=== PATIENT | female | born 1970 | race American Indian/Alaskan Native ===

== ENCOUNTER 2017-02-20 08:26 | Emergency (ER) | payer BC ==
[2017-02-20 09:57] LABS: Basophils % (Auto) 0.8 % (0.0-1.8); Eosinophils % (Auto) 2.2 % (0.0-4.3); Mean Corpuscular HGB Conc 29 % (30-34); Mean Corpuscular Volume 71 fl (79-97); Platelet Count 302 K/mm3 (140-440); Red Cell Distribution Width 18.5 % (13.2-15.2); White Blood Count 6.1 K/mm3 (4.5-11.0)
[2017-02-20 10:01] LABS: Alanine Aminotransferase 19 units/L (7-56); Albumin 2.8 g/dL (3.9-5); Albumin/Globulin Ratio 0.8 %; Alkaline Phosphatase 97 units/L (35-129); Anion Gap 17 mmol/L; BUN/Creatinine Ratio 10.71; Bilirubin,Total < 0.2 mg/dL (0.1-1.2); Blood Urea Nitrogen 15 mg/dL (7-17); Calcium 8.5 mg/dL (8.4-10.2); Carbon Dioxide 21 mmol/L (22-30); Chloride 104.1 mmol/L (98-107); Glucose 277 mg/dL (65-100); Lipase 34 units/L (13-60); Potassium 4.5 mmol/L (3.6-5.0); Sodium 138 mmol/L (137-145); Total Protein 6.3 g/dL (6.3-8.2)
[2017-02-20 10:04] LABS: Hematocrit 28.9 % (30.3-42.9); Hemoglobin 8.5 gm/dl (10.1-14.3); Mean Corpuscular Hemoglobin 21 pg (28-32)
[2017-02-20 12:02] LABS: Bacteria,Urine 1+ /HPF (Negative); Bilirubin,Urine NEG (Negative); Blood,Urine NEG (Negative); Ketones,Urine NEG (Negative); Leukocyte Esterase,Urine NEG (Negative); Mucus,Urine FEW /HPF; Nitrite,Urine NEG (Negative); Urobilinogen,Urine < 2.0 mg/dL (<2.0); WBC,Urine < 1.0 /HPF (0.0-6.0)
[2017-02-20 12:05] LABS: Protein,Urine >500 mg/dL (Negative)
[2017-02-20] MEDS ORDERED: DILAUDID IV ONE ×2 (14:06→17:35)
[2017-02-20] MEDS ORDERED: ZOFRAN IV ONE (14:06)
[2017-02-20] MEDS ORDERED: PROTONIX IV ONE (14:06)
[2017-02-20] MEDS ORDERED: TORADOL IV ONE (14:06)
[2017-02-20] MEDS ORDERED: NACL 0.9% 1000 ML 1,000 ML IV ONE (14:06)
--- NOTE | 2017-02-20 14:10 | Emergency Department Report ---
ED Abdominal Pain HPI - General Chief Complaint: Abdominal Pain Stated Complaint: ABD PAIN/NAUSEA/DIARRHEA Time Seen by Provider: 02/20/17 14:02 Source: patient Mode of arrival: Ambulatory Limitations: No Limitations - History of Present Illness MD Complaint: abdominal pain Onset/Timin -: Gradual, days(s) Location: diffuse Radiation: none Severity: moderate Severity scale (0 -10): 6 Quality: cramping, aching, fullness Consistency: constant Improves With: nothing Worsens With: nothing Associated Symptoms: nausea, vomiting, diarrhea. denies: fever, chills, constipation, dysuria, hematemesis, hematochezia, melena, hematuria, anorexia - Related Data Home Medications Medication Instructions Recorded Confirmed Last Taken Gabapentin [Neurontin] 600 mg PO TID 07/07/13 10/25/16 10/16/16 20:00 Lisinopril [Zestril TAB] 40 mg PO DAILY 08/14/15 10/25/16 10/16/16 20:00 Insulin Aspart [NovoLOG 100 15 unit SQ AC 11/29/15 10/25/16 10/16/16 19:00 UNITS/ML VIAL] amLODIPine [Norvasc] 10 mg PO DAILY 11/29/15 10/25/16 10/16/16 20:00 Sitagliptin Phos/Metformin HCl 1 each PO BID 09/13/16 10/25/16 09/21/16 [Janumet 50-500 mg Tablet] Previous Rx's Medication Instructions Recorded Last Taken Type Insulin Glargine,Hum.rec.anlog 45 unit SQ QHS 30 Days 09/15/16 10/16/16 20:00 Rx [Lantus Solostar] Ondansetron [Zofran ODT TAB] 4 mg PO Q8HR #20 tab.rapdis 09/22/16 Unknown Rx HYDROcodone/APAP 5-325 [[place] 1 - 2 each PO Q6HR PRN #20 tablet 10/17/16 Unknown Rx 5-325 mg TAB] HYDROcodone/APAP 5-325 [[place] 1 each PO Q6HR PRN #16 tablet 10/17/16 Unknown Rx 5-325 mg TAB] Promethazine HCl [Phenergan SUPPOS] 25 mg RC Q6H #10 supp.rect 10/17/16 Unknown Rx Sulfamethoxazole/Trimethoprim 1 each PO BID #6 tablet 10/17/16 Unknown Rx [Bactrim DS TAB] HYDROcodone/APAP 10-325 [[place] 1 each PO TID #15 tablet 02/20/17 Unknown Rx 10-325 mg TAB] Ondansetron [Zofran TAB] 8 mg PO Q8HR PRN #15 tablet 02/20/17 Unknown Rx Promethazine [Phenergan TAB] 25 mg PO Q6HR PRN #20 tab 02/20/17 Unknown Rx Allergies Allergy/AdvReac Type Severity Reaction Status Date / Time metoclopramide HCl Allergy Swelling Verified 02/20/17 09:06 [From Reglan] morphine Allergy Itching Verified 02/20/17 09:06 oxycodone HCl [From Percocet] Allergy Swelling Verified 02/20/17 09:06 shellfish derived Allergy Swelling Verified 02/20/17 09:06 ED Review of Systems ROS: Stated complaint: ABD PAIN/NAUSEA/DIARRHEA Other details as noted in HPI Comment: All other systems reviewed and negative Gastrointestinal: as per HPI ED Past Medical Hx - Past Medical History Hx Hypertension: Yes Hx CVA: Yes (x2) Hx Congestive Heart Failure: Yes Hx Diabetes: Yes Hx Asthma: No Hx COPD: No Hx HIV: No Additional medical history: gastroparesis. neuropathy - Surgical History Hx Cholecystectomy: Yes Hx Breast Surgery: Yes Additional Surgical History: breast reduction. Right great toe amputation. Right chest wall PICC LINE. Ectopic - Social History Smoking Status: Never Smoker Substance Use Type: Alcohol, Prescribed - Medications Home Medications: Home Medications Medication Instructions Recorded Confirmed Last Taken Type Gabapentin [Neurontin] 600 mg PO TID 07/07/13 10/25/16 10/16/16 20:00 History Lisinopril [Zestril TAB] 40 mg PO DAILY 08/14/15 10/25/16 10/16/16 20:00 History Insulin Aspart [NovoLOG 100 15 unit SQ AC 11/29/15 10/25/16 10/16/16 19:00 History UNITS/ML VIAL] amLODIPine [Norvasc] 10 mg PO DAILY 11/29/15 10/25/16 10/16/16 20:00 History Sitagliptin Phos/Metformin HCl 1 each PO BID 09/13/16 10/25/16 09/21/16 History [Janumet 50-500 mg Tablet] Insulin Glargine,Hum.rec.anlog 45 unit SQ QHS 30 Days 09/15/16 10/25/16 20:00 Rx [Lantus Solostar] Ondansetron [Zofran ODT TAB] 4 mg PO Q8HR #20 tab.rapdis 09/22/16 10/25/16 Unknown Rx HYDROcodone/APAP 5-325 [[place] 1 - 2 each PO Q6HR PRN #20 tablet 10/17/16 Unknown Rx 5-325 mg TAB] HYDROcodone/APAP 5-325 [[place] 1 each PO Q6HR PRN #16 tablet 10/17/16 10/25/16 Unknown Rx 5-325 mg TAB] Promethazine HCl [Phenergan SUPPOS] 25 mg RC Q6H #10 supp.rect 10/17/16 Unknown Rx Sulfamethoxazole/Trimethoprim 1 each PO BID #6 tablet 10/17/16 10/25/16 Unknown Rx [Bactrim DS TAB] HYDROcodone/APAP 10-325 [[place] 1 each PO TID #15 tablet 02/20/17 Unknown Rx 10-325 mg TAB] Ondansetron [Zofran TAB] 8 mg PO Q8HR PRN #15 tablet 02/20/17 Unknown Rx Promethazine [Phenergan TAB] 25 mg PO Q6HR PRN #20 tab 02/20/17 Unknown Rx ED Physical Exam - General Limitations: No Limitations General appearance: alert, in no apparent distress - Head Head exam: Present: atraumatic, normocephalic - Eye Eye exam: Present: normal appearance - ENT ENT exam: Present: mucous membranes moist - Neck Neck exam: Present: normal inspection - Respiratory Respiratory exam: Present: normal lung sounds bilaterally. Absent: respiratory distress - Cardiovascular Cardiovascular Exam: Present: regular rate, normal rhythm. Absent: systolic murmur, diastolic murmur, rubs, gallop - GI/Abdominal GI/Abdominal exam: Present: soft, tenderness, normal bowel sounds. Absent: distended, guarding, rebound, rigid - Extremities Exam Extremities exam: Present: normal inspection - Back Exam Back exam: Present: normal inspection - Neurological Exam Neurological exam: Present: alert, oriented X3 - Psychiatric Psychiatric exam: Present: normal affect, normal mood - Skin Skin exam: Present: warm, dry, intact, normal color. Absent: rash ED Course Vital Signs 02/20/17 02/20/17 02/20/17 09:01 16:35 16:38 Temperature 98.7 F Pulse Rate 75 71 Respiratory 16 20 18 Rate Blood Pressure 173/101 Blood Pressure 205/105 [Left] O2 Sat by Pulse 100 97 97 Oximetry 02/20/17 17:34 Temperature Pulse Rate 78 Respiratory 18 Rate Blood Pressure Blood Pressure 181/92 [Left] O2 Sat by Pulse 98 Oximetry ED Medical Decision Making - Lab Data Result diagrams: 02/20/17 09:27 02/20/17 09:27 Critical care attestation.: If time is entered above; I have spent that time in minutes in the direct care of this critically ill patient, excluding procedure time. ED Disposition Clinical Impression: Gastroparesis, Diabetic gastroparesis, Abdominal pain Disposition: DISCHARGED TO HOME OR SELFCARE Is pt being admited?: No Does the pt Need Aspirin: No Condition: Good Instructions: Diabetes Mellitus Type 2 in Adults (ED) Prescriptions: HYDROcodone/APAP 10-325 [[place] 10-325 mg TAB] 1 each PO TID #15 tablet Ondansetron [Zofran TAB] 8 mg PO Q8HR PRN #15 tablet PRN Reason: Muscle Spasm Promethazine [Phenergan TAB] 25 mg PO Q6HR PRN #20 tab PRN Reason: Nausea Referrals: PRIMARY CARE, [Primary Care Provider] - 3-5 Days Time of Disposition: 18:11
--- NOTE | 2017-02-20 16:03 | Admit Criteria Form ---
Admission Criteria Documentation: ABDOMINAL PAIN Clinical Indications for Admission to Inpatient Care (Place 'X' for any and all applicable criteria): Admission is indicated for ANY ONE of the following(1)(2)(3)(4)(5): [ ]I. Inpatient admission required rather than observation care (Also use Abdominal Pain: Observation Care, as appropriate) because of ANY ONE of the following: [ ]a) Severe pain requiring acute inpatient management [ ]b) Identification of etiology/finding that requires inpatient care (eg, aortic dissection, free air) [ ]c) Absent bowel sounds with complete ileus(6) [ ]d) Suspected toxic megacolon [ ]e) Severe electrolyte abnormalities requiring inpatient care [ ]f) High fever or infection requiring inpatient admission as indicated by ANY ONE of following(7)(8): [ ] i) Appropriate outpatient or observational care antimicrobial treatment unavailable, not effective, or not feasible [ ] ii) Documented bacteremia [ ] iii) Temperature > 104.9 degrees F (oral) [ ] iv) T >103.1 F (oral) or < 96.8 F(rectal) that does not respond to all emergency treatment measures [ ]g) Signs of intestinal obstruction [B] [ ]h) Hemodynamic instability [ ]i) IV fluid to replace significant ongoing losses (greater than 3 L/m2 per day) (12)(13) [ ]j) Percutaneous or open drainage (eg, abscess, biliary tract ) procedures [ ]k) Parenteral nutrition regimen that must be implemented on inpatient basis [ ]l) Other condition,treatment or monitoring requiring inpatient admission. [ ]II. Peritoneal signs present [ ]III. Surgery needed that cannot be performed on an ambulatory basis. [ ]IV. Evaluation requires patient to not eat or drink for extended period ( eg, more than 24 hours). [ ]V. Contraindications and/or Inappropriate clinical situations for Observational Care in patients with abdominal pain, when ANY ONE of the following is required: [ ]a) Thorough evaluation is required to prevent catastrophic events due to delays in diagnosing (e.g.Mesenteric ischemia) 1,3 [ ]b) Patient with severe pathology or with chronic symptoms unlikely to improve in the ED stay (3) [ ]. General contraindications and/or Inappropriate clinical situations for Observational Care in patients with abdominal pain, when ANY ONE of the following is required: [ ]a) Prediction of prolongation of LOS based on ANY ONE of the following may be considered as a contraindication for observational care 2, 3, 4, 5, 6, 7, 8, 9, 10, 11 [ ]i) Age > 65 yrs. [ ]ii) Patient arriving by ambulance [ ]iii) Patient with high acuity [ ]iv) Patient requiring vital sign monitoring [ ]v) Patient on IV medication [ ]b) Systolic blood pressures 180mmHg 3,12 [ ]c) Patient with altered mental status including delirium and other alteration of consciousness, (3) [ ]d) Patient whose discharge disposition will be to a shelter home or rehabilitation home should not be managed in Emergency Department Observation Unit. CMS rule requires 3 days hospital stay before such placement.3,13 [ ]e) Patient with failure to thrive due to broad array of etiologies 3,16,17 [ ]f) Inability to ambulate 3,14 Extended stay beyond goal length of stay may be needed for(2)(3): [ ]a) Persistent abdominal pain with suspected intra-abdominal process [ ]b) Diagnosed condition requiring continued stay (e.g., pancreatitis, complicated diverticulitis) [ ]c) Surgery (e.g., colectomy) The original [employer] content created by [employer] has been revised. The portions of the content which have been revised are identified through the use of italic text or in bold, and [facility] has neither reviewed nor approved the modified material.All other unmodified content is copyright [employer]. Please see references footnoted in the original [employer] edition 2016
[2017-02-20 17:35] VITALS: BP 181/92
== END 2017-02-20 18:26 | disposition home or self-care (01) ==
LOC: ED 08:26
DX: E11.43 Type 2 diabetes mellitus with diabetic autonomic (poly)neuropathy (principal); K31.84 Gastroparesis; R10.9 Unspecified abdominal pain; E11.9 Type 2 diabetes mellitus without complications; I10 Essential (primary) hypertension; I63.9 Cerebral infarction, unspecified; Z79.4 Long term (current) use of insulin; Z88.5 Allergy status to narcotic agent; Z91.013 Allergy to seafood; Z88.8 Allergy status to other drugs, medicaments and biological substances
CPT/HCPCS: 36415; 80053; 81001; 81025; 83690; 85025; 96361; 96374; 96375; 96376; 99283; C9113; J1170; J1885; J2405; J7030

== ENCOUNTER 2017-03-16 08:44 | Inpatient (IN) | payer BC ==
[2017-03-16 11:03] LABS: Basophils % (Auto) 0.8 % (0.0-1.8); Eosinophils % (Auto) 2.6 % (0.0-4.3); Mean Corpuscular HGB Conc 29 % (30-34); Mean Corpuscular Volume 71 fl (79-97); Platelet Count 263 K/mm3 (140-440); Red Blood Count 3.87 M/mm3 (3.65-5.03); Red Cell Distribution Width 18.3 % (13.2-15.2); White Blood Count 6.4 K/mm3 (4.5-11.0)
[2017-03-16 11:12] LABS: BUN/Creatinine Ratio 14.44; Calcium 8.2 mg/dL (8.4-10.2); Chloride 99.9 mmol/L (98-107); Potassium 5.9 mmol/L (3.6-5.0)
[2017-03-16 11:19] LABS: Hematocrit 27.4 % (30.3-42.9); Mean Corpuscular Hemoglobin 21 pg (28-32)
[2017-03-16] MEDS ORDERED: NACL 0.9% 1000 ML 1,000 ML IV ONE (12:23)
[2017-03-16] MEDS ORDERED: KIONEX PO ONE (12:23)
[2017-03-16] MEDS ORDERED: ZOFRAN IV ONE (12:37)
[2017-03-16] MEDS ORDERED: PROTONIX IV ONE (12:37)
--- NOTE | 2017-03-16 12:52 | Emergency Department Report ---
ED General Adult HPI - General Chief complaint: Hyperglycemia Stated complaint: N/V/D Time Seen by Provider: 03/16/17 12:19 Source: patient Mode of arrival: Ambulatory Limitations: No Limitations - History of Present Illness Initial comments: This is a in insulin-dependent diabetic who requires frequent admission to [facility] for a variety of issues to include DKA and previous bouts of acute renal failure. Her compliance has been questioned. She has a history of gastroparesis. She does not have her PICC line at this point. She states yesterday she was nauseated and could not take her oral medication. She does claim a primary care doctor but I seriously doubt if she Follows up closely. She tells me that at 2:30 in the morning she felt as if she was "floating". She states that she was dizzy. She checked her blood sugar and found it to be elevated in the 400s. She took 15 units she states of NovoLog at that time. However, the blood glucose we obtained here at approximately 10 AM was 521. At this time she does complain of some nausea but she is not complaining of any acute pain. She states she has been urinating less than usual. -: hour(s) Location: abdomen (chronic gastroparesis pain ) Radiation: non-radiation Quality: other (cramping) Consistency: intermittent, now resolved Improves with: none Worsens with: none Associated Symptoms: denies other symptoms Treatments Prior to Arrival: none - Related Data Home Medications Medication Instructions Recorded Confirmed Last Taken Gabapentin [Neurontin] 600 mg PO TID 07/07/13 10/25/16 10/16/16 20:00 Lisinopril [Zestril TAB] 40 mg PO DAILY 08/14/15 10/25/16 10/16/16 20:00 Insulin Aspart [NovoLOG 100 15 unit SQ AC 11/29/15 10/25/16 10/16/16 19:00 UNITS/ML VIAL] Sitagliptin Phos/Metformin HCl 1 each PO BID 09/13/16 10/25/16 09/21/16 [Janumet 50-500 mg Tablet] Insulin Glargine,Hum.rec.anlog 40 unit SQ QHS 03/16/17 03/16/17 03/15/17 [Lantus Solostar] Simvastatin [Zocor TAB] 40 mg PO DAILY 03/16/17 03/16/17 03/15/17 Allergies Allergy/AdvReac Type Severity Reaction Status Date / Time metoclopramide HCl Allergy Swelling Verified 02/20/17 09:06 [From Reglan] morphine Allergy Itching Verified 02/20/17 09:06 oxycodone HCl [From Percocet] Allergy Swelling Verified 02/20/17 09:06 shellfish derived Allergy Swelling Verified 02/20/17 09:06 ED Review of Systems ROS: Stated complaint: N/V/D Other details as noted in HPI Constitutional: denies: chills, fever Eyes: denies: eye pain, eye discharge, vision change ENT: denies: ear pain, throat pain Respiratory: denies: cough, shortness of breath, wheezing Cardiovascular: denies: chest pain, palpitations Endocrine: no symptoms reported Gastrointestinal: abdominal pain, nausea, vomiting. denies: diarrhea, hematemesis, melena, hematochezia Genitourinary: denies: urgency, dysuria, discharge Musculoskeletal: denies: back pain, joint swelling, arthralgia Skin: denies: rash, lesions Neurological: denies: headache, weakness, paresthesias Psychiatric: denies: anxiety, depression Hematological/Lymphatic: denies: easy bleeding, easy bruising ED Past Medical Hx - Past Medical History Hx Hypertension: Yes Hx CVA: Yes (x2) Hx Congestive Heart Failure: Yes Hx Diabetes: Yes Hx Asthma: No Hx COPD: No Hx HIV: No Additional medical history: gastroparesis. neuropathy - Surgical History Hx Cholecystectomy: Yes Hx Breast Surgery: Yes Additional Surgical History: breast reduction. Right great toe amputation. Right chest wall PICC LINE. Ectopic - Social History Smoking Status: Never Smoker Substance Use Type: Alcohol, Prescribed - Medications Home Medications: Home Medications Medication Instructions Recorded Confirmed Last Taken Type Gabapentin [Neurontin] 600 mg PO TID 07/07/13 10/25/16 10/16/16 20:00 History Lisinopril [Zestril TAB] 40 mg PO DAILY 08/14/15 10/25/16 10/16/16 20:00 History Insulin Aspart [NovoLOG 100 15 unit SQ AC 11/29/15 10/25/16 10/16/16 19:00 History UNITS/ML VIAL] Sitagliptin Phos/Metformin HCl 1 each PO BID 09/13/16 10/25/1609/21/16 History [Janumet 50-500 mg Tablet] Insulin Glargine,Hum.rec.anlog 40 unit SQ QHS 03/16/17 03/16/17 03/15/17 History [Lantus Solostar] Simvastatin [Zocor TAB] 40 mg PO DAILY 03/16/17 03/16/17 03/15/17 History ED Physical Exam - General Limitations: No Limitations General appearance: alert, in no apparent distress - Head Head exam: Present: atraumatic, normocephalic - Eye Eye exam: Present: normal appearance. Absent: scleral icterus - ENT ENT exam: Present: mucous membranes dry - Neck Neck exam: Present: normal inspection. Absent: tenderness, meningismus - Respiratory Respiratory exam: Present: normal lung sounds bilaterally. Absent: respiratory distress - Cardiovascular Cardiovascular Exam: Present: regular rate, normal rhythm. Absent: systolic murmur, diastolic murmur, rubs, gallop - GI/Abdominal GI/Abdominal exam: Present: soft, normal bowel sounds. Absent: distended, tenderness, guarding, rebound, rigid - Extremities Exam Extremities exam: Present: normal inspection - Back Exam Back exam: Present: normal inspection - Neurological Exam Neurological exam: Present: alert, oriented X3, CN II-XII intact. Absent: motor sensory deficit - Psychiatric Psychiatric exam: Present: normal affect, normal mood - Skin Skin exam: Present: warm, dry, intact, normal color. Absent: rash ED Course Vital Signs 03/16/17 03/16/17 03/16/17 10:00 12:25 12:30 Temperature 98.4 F 97.9 F Pulse Rate 88 79 Respiratory 18 14 14 Rate Blood Pressure 173/96 Blood Pressure 157/102 [Right] O2 Sat by Pulse 98 100 100 Oximetry 03/16/17 13:13 Temperature Pulse Rate 82 Respiratory Rate Blood Pressure Blood Pressure [Right] O2 Sat by Pulse Oximetry - Reevaluation(s) Reevaluation #1: The patient was given IV insulin and by mouth Kayexalate to reduce her potassium. Intravenous fluids were begun. I spoke to Dr. Rodriguez who requested I bridge her to telemetry where he will admit her. 03/16/17 12:54 ED Medical Decision Making - Lab Data Result diagrams: 03/16/17 10:17 03/16/17 10:17 Laboratory Results - last 24 hr 03/16/17 03/16/17 03/16/17 10:17 10:17 10:17 WBC 6.4 RBC 3.87 Hgb 8.0 L Hct 27.4 L MCV 71 L MCH 21 L MCHC 29 L RDW 18.3 H Plt Count 263 Lymph % (Auto) 24.1 Oliver % (Auto) 6.0 Eos % (Auto) 2.6 Baso % (Auto) 0.8 Lymph # 1.5 Oliver # 0.4 Eos # 0.2 Baso # 0.1 Seg Neutrophils % 66.5 Seg Neutrophils # 4.3 VBG pH 7.348 Sodium 132 L Potassium 5.9 H Chloride 99.9 Carbon Dioxide 20 L Anion Gap 18 BUN 26 H Creatinine 1.8 H Estimated GFR 36 BUN/Creatinine Ratio 14.44 Glucose 521 H* Calcium 8.2 L - EKG Data -: EKG Interpreted by Me EKG shows normal: sinus rhythm, axis, intervals, QRS complexes, ST-T waves Rate: normal - EKG Data Interpretation: no acute changes - Radiology Data interpreted by me: Chest x-ray no acute process Critical care attestation.: If time is entered above; I have spent that time in minutes in the direct care of this critically ill patient, excluding procedure time. ED Disposition Clinical Impression: Gastroparesis, Hyperglycemia due to type 1 diabetes mellitus, Hyperkalemia, Uncontrolled hypertension Anemia Qualifiers: Anemia type: unspecified type Qualified Code(s): D64.9 - Anemia, unspecified ARF (acute renal failure) Qualifiers: Acute renal failure type: unspecified Qualified Code(s): N17.9 - Acute kidney failure, unspecified Disposition: OP ADMITTED IP TO THIS HOSP Is pt being admited?: Yes Does the pt Need Aspirin: Yes Condition: Stable Instructions: Diabetes Mellitus Type 2 in Adults (ED), Hypertension (ED) Referrals: PRIMARY CARE, [Primary Care Provider] - 3-5 Days Time of Disposition: 12:58
[2017-03-16] MEDS ORDERED: NITRO-BID 2% TP ONE (12:56)
[2017-03-16] MEDS ORDERED: BABY ASPIRIN PO ONE (12:59)
--- NOTE | 2017-03-16 12:59 | XRay Report ---
AP CHEST: HISTORY: Hypertension AP view of the chest demonstrates a normal mediastinal and cardiac contour with clear lungs and normal bony and soft tissue structures. IMPRESSION: Unremarkable AP chest.
[2017-03-16 13:00] LABS: Bilirubin,Urine NEG (Negative); Blood,Urine NEG (Negative); Ketones,Urine NEG (Negative); Leukocyte Esterase,Urine NEG (Negative); Mucus,Urine FEW /HPF; Nitrite,Urine NEG (Negative); Urobilinogen,Urine < 2.0 mg/dL (<2.0)
[2017-03-16] MEDS ORDERED: DILAUDID IV ONE (13:31)
[2017-03-16] MEDS ORDERED: ZOFRAN IV PRN (14:00)
[2017-03-16] MEDS ORDERED: MILK OF MAGNESIA PO PRN (14:00)
[2017-03-16] MEDS ORDERED: DULCOLAX PR PRN (14:00)
[2017-03-16] MEDS ORDERED: REGLAN IV PRN (14:00)
[2017-03-16] MEDS ORDERED: TYLENOL PO PRN (14:00)
--- NOTE | 2017-03-16 14:25 | Admit Criteria Form ---
Admission Criteria Documentation: ANEMIA, IRON DEFICIENCY OR UNSPECIFIED Clinical Indications for Inpatient Care (Place 'X' for any and all applicable criteria): Admission is indicated for ANY ONE of the following(1)(2)(3)(4)(5)(6)(7): [X] I. Inpatient admission required rather than observation care (Also use Anemia, Iron Deficiency or Unspecified: Observation Care guideline as appropriate) because of ANY ONE of the following: [] a) Hemodynamic instability that is severe or persistent [] b) Active bleeding that cannot be rapidly controlled [] c) CVS symptoms (i.e., dyspnea, chest pain, heart failure) that are severe or persistent [] d) Neurologic symptoms (i.e., cognitive impairment, recurrent syncope or near syncope) that are severe or persistent [] e) Cardiac arrhythmias of immediate concern [] f) Acute peripheral ischemia (e.g., pulseless, cool, mottled, or cyanotic extremity) [] g) High-risk low platelet count [X] h) Acute renal failure [] i) Ongoing transfusion for blood loss (greater than 2 units) [] j) IV fluid to replace significant ongoing (eg, >24 hours) losses (> 3 L/m2 per day) [] k) Pulmonary artery catheter monitoring [] l) Supplemental oxygen or respiratory treatments for over 24 hours that are performable only in acute inpatient setting [] m) Immediate inpatient surgery [] n) Other condition, treatment or monitoring requiring inpatient admission [] II Active massive hemorrhage [] III. Active hemolysis with rapidly progressive anemia [A](6) Extended stay beyond goal length of stay may be needed for (17)(18) []a) Diagnosed cause of anemia requiring longer hospitalization (eg, active GI bleeding, immune hemolysis requiring electrophoresis, complications of malignancy requiring acute care []b) Continued emergent anemia indicators (23) []c) Transfusion reactions []d) Associated leukopenia or thrombocytopenia needing inpatient care []e) Active comorbidities (eg, renal failure, heart failure) The original [facility] Care Guidelines content created by [facility] Care Guidelines has been revised. The portions of the content which have been revised are identified through the use of italic text or in bold. [facility] has neither reviewed nor approved the modified material. All other unmodified content is copyright [facility] Care Guidelines. Please see references footnoted in the original [facility] edition 2016 Admission Criteria Met: Yes
--- NOTE | 2017-03-16 14:50 | History and Physical Report ---
History of Present Illness Date of examination: 03/16/17 Date of admission: 03/16/17 12:45 Chief complaint: Abdominal pain History of present illness: Patient is 47 years-old with the Hx of uncontrolled HTN, uncontrolled DM, CHF, gastroparesis came in today to ED with epigastric pain she complain she had severe nausea and has had 6 episodes of bilious vomiting despite not having taken anything by mouth since yesterday. Vomiting is the only thing that seems to provide some minimal relief. Currently,the pain is described as a constant dull, diffuse pain that intermittently becomes sharp and well localized. The intensity of the pain has been increasing since yesterday and on pain scale she now rates the pain at 9/10.She denies fever, malaise or chills. Surg Hx:Right great toe amputation Ectopic Breast Reduction Past History Past Medical History: CAD, diabetes, heart failure, hypertension, hyperlipidemia Past Surgical History: Other (Right great toe amputation, breast reduction, Ectopic ) Social history: , lives with family. denies: smoking, alcohol abuse, prescription drug abuse Family history: diabetes, hypertension Medications and Allergies Allergies Allergy/AdvReac Type Severity Reaction Status Date / Time metoclopramide HCl Allergy Swelling Verified 02/20/17 09:06 [From Reglan] morphine Allergy Itching Verified 02/20/17 09:06 oxycodone HCl [From Percocet] Allergy Swelling Verified 02/20/17 09:06 shellfish derived Allergy Swelling Verified 02/20/17 09:06 Home Medications Medication Instructions Recorded Confirmed Last Taken Type Gabapentin [Neurontin] 800 mg PO TID 07/07/13 03/16/17 03/15/17 History Lisinopril [Zestril TAB] 40 mg PO DAILY 08/14/15 03/16/17 03/15/17 History Insulin Aspart [NovoLOG 100 15 unit SQ TID 11/29/15 03/16/17 03/16/17 History UNITS/ML VIAL] Sitagliptin Phos/Metformin HCl 1 each PO BID 09/13/16 03/16/17 03/16/17 History [Janumet 50-500 mg Tablet] Insulin Glargine,Hum.rec.anlog 40 unit SQ QHS 03/16/17 03/16/17 03/15/17 History [Lantus Solostar] Simvastatin [Zocor TAB] 40 mg PO DAILY 03/16/17 03/16/17 03/15/17 History Active Meds: Active Medications Acetaminophen (Tylenol) 650 mg PO Q4H PRN PRN Reason: Pain MILD(1-3)/Fever >100.5/[place] Bisacodyl (Dulcolax) 10 mg SC QDAY PRN PRN Reason: Constipation unrelieved by [facility] [place] Heparin Sodium (Porcine) (Heparin) 5,000 unit SUB-Q Q8HR [facility] Hydromorphone HCl (Dilaudid) 1 mg IV Q4H PRN PRN Reason: Pain , Severe (7-10) Sodium Chloride (Nacl 0.9% 1000 Ml) 1,000 mls @ 125 mls/hr IV ONCE ONE Stop: 03/16/17 20:22 Last Admin: 03/16/17 13:50 Dose: 125 mls/hr Pantoprazole Sodium 80 mg/ (Sodium Chloride) 100 mls @ 10 mls/hr IV Q10H KE PRN Reason: 8 MG/HR Sodium Chloride (Nacl 0.9% 1000 Ml) 1,000 mls @ 75 mls/hr IV DIRECT [facility] Insulin Aspart (Novolog) 15 units SUB-Q TID [facility] Insulin Aspart (Novolog) 0 units SUB-Q ACHS KE PRN Reason: Protocol Lisinopril (Zestril) 40 mg PO DAILY [facility] Magnesium Hydroxide (Milk Of Magnesia) 30 ml PO Q4H PRN PRN Reason: Constipation Metoclopramide HCl (Reglan) 10 mg IV Q6H PRN PRN Reason: Nausea And Vomiting Miscellaneous Medication (Gabapentin [Neurontin]) 800 mg PO TID [facility] Miscellaneous Medication (Insulin Glargine,Hum.Rec.Anlog [Lantus Solostar]) 40 unit SQ QHS KE Ondansetron HCl (Zofran) 4 mg IV Q4H PRN PRN Reason: N/V unrelieved by Reglan Simvastatin (Zocor) 40 mg PO DAILY [facility] Review of Systems Constitutional: no weight loss, no weight gain, no fever, no chills, no sweats, no night sweats, no anorexia, no fatigue, no weakness, no malaise, no poor appetite Ears, nose, mouth and throat: deferred Breasts: deferred Cardiovascular: high blood pressure, no chest pain, no orthopnea, no edema, no syncope, no lightheadedness, no shortness of breath Respiratory: no cough, no shortness of breath, no dyspnea on exertion Gastrointestinal: nausea, vomiting, loss of appetite, heartburn, belching, no diarrhea, no constipation, no change in bowel habits, no hematemesis, no excessive gas, no jaundice, no dyspepsia/bloating, no early satiety Genitourinary Female: no pelvic pain, no flank pain, no urinary frequency Musculoskeletal: no neck stiffness, no neck pain, no shooting arm pain Integumentary: no rash, no pruritis Neurological: no head injury, no transient paralysis, no paralysis, no weakness , no parathesias Psychiatric: no anxiety, no memory loss, no change in sleep habits, no sleep disturbances Endocrine: no cold intolerance, no heat intolerance Hematologic/Lymphatic: no easy bruising, no easy bleeding Allergic/Immunologic: no urticaria, no allergic rhinitis, no wheezing Exam - Physical Exam Narrative exam: WD WN female in mild distress sec to epigastric pain - Constitutional Vitals: Temp Pulse Resp BP Pulse Ox 97.9 F 82 17 157/102 100 03/16/17 12:30 03/16/17 13:13 03/16/17 13:50 03/16/17 12:30 03/16/17 12:30 General appearance: Present: no acute distress, well-nourished, obese - EENT Eyes: Present: PERRL ENT: hearing intact, clear oral mucosa - Neck Neck: Present: supple, normal ROM - Respiratory Respiratory effort: normal Respiratory: right: CTA - Cardiovascular Rhythm: regular Heart Sounds: Present: S1 & S2. Absent: systolic murmur, diastolic murmur, rub , click - Extremities Extremities: no ischemia, pulses intact, pulses symmetrical Peripheral Pulses: within normal limits - Abdominal General gastrointestinal: Present: soft, tender (Slight tenderness,No guarding) , non-distended, normal bowel sounds Localized gastrointestinal: guarding: epigastric periumbilical Female genitourinary: Present: normal - Rectal Rectal Exam: deferred - Integumentary Integumentary: Present: clear, warm, dry - Musculoskeletal Musculoskeletal: gait normal, strength equal bilaterally - Psychiatric Psychiatric: appropriate mood/affect, intact judgment & insight - Neurologic Neurologic: CNII-XII intact, moves all extremities Results - Labs CBC & Chem 7: 03/16/17 10:17 03/16/17 10:17 Labs: Laboratory Last Values WBC 6.4 K/mm3 (4.5-11.0) 03/16/17 10:17 RBC 3.87 M/mm3 (3.65-5.03) 03/16/17 10:17 Hgb 8.0 gm/dl (10.1-14.3) L 03/16/17 10:17 Hct 27.4 % (30.3-42.9) L 03/16/17 10:17 MCV 71 fl (79-97) L 03/16/17 10:17 MCH 21 pg (28-32) L 03/16/17 10:17 MCHC 29 % (30-34) L 03/16/17 10:17 RDW 18.3 % (13.2-15.2) H 03/16/17 10:17 Plt Count 263 K/mm3 (140-440) 03/16/17 10:17 Lymph % (Auto) 24.1 % (13.4-35.0) 03/16/17 10:17 [place] % (Auto) 6.0 % (0.0-7.3) 03/16/17 10:17 Eos % (Auto) 2.6 % (0.0-4.3) 03/16/17 10:17 Baso % (Auto) 0.8 % (0.0-1.8) 03/16/17 10:17 Lymph # 1.5 K/mm3 (1.2-5.4) 03/16/17 10:17 [place] # 0.4 K/mm3 (0.0-0.8) 03/16/17 10:17 Eos # 0.2 K/mm3 (0.0-0.4) 03/16/17 10:17 Baso # 0.1 K/mm3 (0.0-0.1) 03/16/17 10:17 Seg Neutrophils % 66.5 % (40.0-70.0) 03/16/17 10:17 Seg Neutrophils # 4.3 K/mm3 (1.8-7.7) 03/16/17 10:17 VBG pH 7.348 (7.320-7.420) 03/16/17 10:17 Sodium 132 mmol/L (137-145) L 03/16/17 10:17 Potassium 5.9 mmol/L (3.6-5.0) H 03/16/17 10:17 Chloride 99.9 mmol/L (98-107) 03/16/17 10:17 Carbon Dioxide 20 mmol/L (22-30) L 03/16/17 10:17 Anion Gap 18 mmol/L 03/16/17 10:17 BUN 26 mg/dL (7-17) H 03/16/17 10:17 Creatinine 1.8 mg/dL (0.7-1.2) H 03/16/17 10:17 Estimated GFR 36 ml/min 03/16/17 10:17 BUN/Creatinine Ratio 14.44 % 03/16/17 10:17 Glucose 521 mg/dL (65-100) H* 03/16/17 10:17 Calcium 8.2 mg/dL (8.4-10.2) L 03/16/17 10:17 Urine Color Straw (Yellow) 03/16/17 12:25 Urine Turbidity Clear (Clear) 03/16/17 12:25 Urine pH 7.0 (5.0-7.0) 03/16/17 12:25 Ur Specific [place] 1.017 (1.003-1.030) 03/16/17 12:25 Urine Protein 100 mg/dl mg/dL (Negative) 03/16/17 12:25 Urine Glucose (UA) >=500 mg/dL (Negative) 03/16/17 12:25 Urine Ketones Neg mg/dL (Negative) 03/16/17 12:25 Urine Blood Neg (Negative) 03/16/17 12:25 Urine Nitrite Neg (Negative) 03/16/17 12:25 Urine Bilirubin Neg (Negative) 03/16/17 12:25 Urine Urobilinogen < 2.0 mg/dL (<2.0) 03/16/17 12:25 Ur Leukocyte Esterase Neg (Negative) 03/16/17 12:25 Urine WBC (Auto) 1.0 /HPF (0.0-6.0) 03/16/17 12:25 Urine RBC (Auto) 1.0 /HPF (0.0-6.0) 03/16/17 12:25 U Epithel Cells (Auto) 5.0 /HPF (0-13.0) 03/16/17 12:25 Urine Mucus Few /HPF 03/16/17 12:25 Short CBC 03/16/17 Range/Units 10:17 WBC 6.4 (4.5-11.0) K/mm3 Hgb 8.0 L (10.1-14.3) gm/dl Hct 27.4 L (30.3-42.9) % Plt Count 263 (140-440) K/mm3 BMP 03/16/17 10:17 Sodium 132 L Potassium 5.9 H Chloride 99.9 Carbon Dioxide 20 L BUN 26 H Creatinine 1.8 H Glucose 521 H* Calcium 8.2 L Urine 03/16/17 Range/Units 12:25 Urine Color Straw (Yellow) Urine pH 7.0 (5.0-7.0) Ur Specific [place] 1.017 (1.003-1.030) Urine Protein 100 mg/dl (Negative) mg/dL Urine Glucose (UA) >=500 (Negative) mg/dL - Imaging and Cardiology EKG: report reviewed (: EKG Interpreted by Me NSR non specific ST T wave changes ) Chest x-ray: report reviewed (NAF) Assessment and Plan Assessment and plan: Full code Advance Directives: Yes (Full code) VTE prophylaxis?: Chemical Plan of care discussed with patient/family: Yes - Patient Problems (1) ARF (acute renal failure) Onset Date: ~03/16/17 Current Visit: Yes Status: Acute Qualifiers: Acute renal failure type: unspecified Qualified Code(s): N17.9 - Acute kidney failure, unspecified Plan to address problem: Strated on IV fluids NS @75cc/hr. (2) Hyperkalemia Onset Date: ~03/16/17 Current Visit: Yes Status: Acute Plan to address problem: Patient Given 30mg of Kayexalate in ER (3) Uncontrolled hypertension Onset Date: ~03/16/17 Current Visit: Yes Status: Acute Plan to address problem: Patient on Lisinopril Hydralzine 10 mg ivp q 3 prn Will add coreg or Amlodipine if high BP persists.Expect BP to improve with improvement in pain. (4) Diabetic gastroparesis Current Visit: No Status: Acute Plan to address problem: Patient on Protonix 80mg IV Reglan 10mg IV PRN Zofran 4mg PRN (5) Uncontrolled diabetes mellitus Onset Date: ~03/16/17 Current Visit: Yes Status: Chronic Qualifiers: Diabetes mellitus type: type 2 Diabetes mellitus complication status: with neurologic complications Diabetes mellitus complication detail: with autonomic neuropathy Diabetic retinopathy severity: D Proliferative retinopathy type: P Diabetes mellitus macular edema: D Diabetes mellitus custodial insulin use: with exterminator termite use Laterality: L Chronic kidney disease stage: C Qualified Code(s): E11.43 - Type 2 diabetes mellitus with diabetic autonomic (poly)neuropathy; E11.65 - Type 2 diabetes mellitus with hyperglycemia; Z79.4 - longterm (current) use of insulin Plan to address problem: Aspart 15 units TID Lantus 40 units HS Moderate dose S/S coverage (6) DVT prophylaxis Current Visit: No Status: Acute Plan to address problem: Heparin 5000 sq bid
[2017-03-16] MEDS: ZESTRIL PO SCH (15:46)
[2017-03-16] MEDS: ZOCOR PO SCH (15:46)
[2017-03-16] MEDS: HEPARIN SUB-Q SCH ×2 (15:46→22:59)
[2017-03-16] MEDS: DILAUDID IV PRN ×2 (15:46→20:58)
[2017-03-16] MEDS: PROTONIX 80 MG in NACL 0.9% 100 ML IV SCH (16:32)
[2017-03-16] MEDS: NOVOLOG SUB-Q SCH ×3 (16:58→22:58)
[2017-03-16] MEDS ORDERED: NON-FORMULARY (Gabapentin [Neurontin] 800 MG) PO SCH (20:00)
[2017-03-16] MEDS: NEURONTIN PO SCH (20:59)
[2017-03-16] MEDS: ZOFRAN IV PRN (21:00)
[2017-03-16] MEDS ORDERED: NON-FORMULARY (Insulin Glargine,Hum.Rec.Anlog [Lantus Solostar] 40 UNIT) SQ SCH (22:00)
[2017-03-16] MEDS: LEVEMIR SUB-Q SCH (22:59)
[2017-03-17] MEDS: DILAUDID IV PRN ×4 (05:28→20:54)
[2017-03-17] MEDS: ZOFRAN IV PRN ×4 (05:29→20:54)
[2017-03-17] MEDS: HEPARIN SUB-Q SCH ×3 (05:35→22:51)
[2017-03-17] MEDS: NACL 0.9% 1000 ML 1,000 ML IV SCH ×2 (05:36→19:51)
[2017-03-17] MEDS: PROTONIX 80 MG in NACL 0.9% 100 ML IV SCH ×2 (05:37→15:59)
[2017-03-17 08:55] LABS: Basophils % (Auto) 0.8 % (0.0-1.8); Eosinophils % (Auto) 3.9 % (0.0-4.3); Mean Corpuscular HGB Conc 29 % (30-34); Mean Corpuscular Volume 73 fl (79-97); Platelet Count 183 K/mm3 (140-440); White Blood Count 6.2 K/mm3 (4.5-11.0)
[2017-03-17 08:56] LABS: Hematocrit 24.7 % (30.3-42.9); Hemoglobin 7.1 gm/dl (10.1-14.3); Mean Corpuscular Hemoglobin 21 pg (28-32)
[2017-03-17 08:59] LABS: BUN/Creatinine Ratio 12.5; Calcium 7.7 mg/dL (8.4-10.2); Chloride 106.2 mmol/L (98-107); Potassium 4.1 mmol/L (3.6-5.0)
[2017-03-17] MEDS: NEURONTIN PO SCH ×3 (10:14→19:50)
[2017-03-17] MEDS: ZOCOR PO SCH (10:15)
[2017-03-17] MEDS: ZESTRIL PO SCH (10:15)
[2017-03-17] MEDS: NOVOLOG SUB-Q SCH ×7 (10:18→22:50)
--- NOTE | 2017-03-17 11:56 | Progress Note ---
Assessment and Plan Assessment and plan: Acute renal failure. Etiology likely secondary to vasomotor nephropathy. Continue IV fluid hydration. Follow-up creatinine in a.m. Diabetic gastroparesis. Continue Protonix, Reglan and Zofran. Continue supportive care. Melena. Patient denies any NSAID use. Consider GI consultation. Patient reports evaluation with colonoscopy approximately 2 years ago that was negative. If H&H remained stable, patient will follow up as an outpatient. Anemia. Etiology may be secondary to chronic blood loss. Patient is above the report melena recently. Transfuse for hemoglobin less than 7.0. Check iron studies, B12, folate, reticulocyte count and LDH. Hyperkalemia. Etiology secondary to #1. Resolved. Diabetes mellitus type 2, uncontrolled. Continue sliding-scale and Accu-Cheks. DVT prophylaxis. History Interval history: Patient reports nausea but no vomiting this morning. Patient does report melena 2 night. No new episodes. Hospitalist Physical - Constitutional Vitals: Temp Pulse Resp BP Pulse Ox 97.9 F 71 18 167/90 97 03/17/17 08:00 03/17/17 10:15 03/17/17 10:00 03/17/17 10:15 03/17/17 10:00 General appearance: Present: no acute distress, well-nourished, obese - EENT Eyes: Present: PERRL, EOM intact ENT: hearing intact, clear oral mucosa, dentition normal - Neck Neck: Present: supple, normal ROM - Respiratory Respiratory effort: normal Respiratory: bilateral: CTA - Cardiovascular Rhythm: regular Heart Sounds: Present: S1 & S2. Absent: gallop, rub - Extremities Extremities: no ischemia, No edema, Full ROM - Abdominal General gastrointestinal: soft, non-tender, non-distended, normal bowel sounds - Integumentary Integumentary: Present: clear, warm, dry - Neurologic Neurologic: CNII-XII intact, moves all extremities Results - Labs CBC & Chem 7: 03/17/17 08:17 03/17/17 08:17 Labs: Laboratory Last Values WBC 6.2 K/mm3 (4.5-11.0) 03/17/17 08:17 RBC 3.40 M/mm3 (3.65-5.03) L 03/17/17 08:17 Hgb 7.1 gm/dl (10.1-14.3) L 03/17/17 08:17 Hct 24.7 % (30.3-42.9) L 03/17/17 08:17 MCV 73 fl (79-97) L 03/17/17 08:17 MCH 21 pg (28-32) L 03/17/17 08:17 MCHC 29 % (30-34) L 03/17/17 08:17 RDW 18.0 % (13.2-15.2) H 03/17/17 08:17 Plt Count 183 K/mm3 (140-440) 03/17/17 08:17 Lymph % (Auto) 38.5 % (13.4-35.0) H 03/17/17 08:17 [place] % (Auto) 8.0 % (0.0-7.3) H 03/17/17 08:17 Eos % (Auto) 3.9 % (0.0-4.3) 03/17/17 08:17 Baso % (Auto) 0.8 % (0.0-1.8) 03/17/17 08:17 Lymph # 2.4 K/mm3 (1.2-5.4) 03/17/17 08:17 [place] # 0.5 K/mm3 (0.0-0.8) 03/17/17 08:17 Eos # 0.2 K/mm3 (0.0-0.4) 03/17/17 08:17 Baso # 0.1 K/mm3 (0.0-0.1) 03/17/17 08:17 Seg Neutrophils % 48.8 % (40.0-70.0) 03/17/17 08:17 Seg Neutrophils # 3.0 K/mm3 (1.8-7.7) 03/17/17 08:17 VBG pH 7.348 (7.320-7.420) 03/16/17 10:17 Sodium 140 mmol/L (137-145) D 03/17/17 08:17 Potassium 4.1 mmol/L (3.6-5.0) D 03/17/17 08:17 Chloride 106.2 mmol/L (98-107) 03/17/17 08:17 Carbon Dioxide 21 mmol/L (22-30) L 03/17/17 08:17 Anion Gap 17 mmol/L 03/17/17 08:17 BUN 20 mg/dL (7-17) H 03/17/17 08:17 Creatinine 1.6 mg/dL (0.7-1.2) H 03/17/17 08:17 Estimated GFR 42 ml/min 03/17/17 08:17 BUN/Creatinine Ratio 12.50 % 03/17/17 08:17 Glucose 212 mg/dL (65-100) H 03/17/17 08:17 POC Glucose 329 (70-105) H 03/17/17 09:04 Hemoglobin A1c 14.0 % (4-6) H 03/17/17 08:17 Calcium 7.7 mg/dL (8.4-10.2) L 03/17/17 08:17 Urine Color Straw (Yellow) 03/16/17 12:25 Urine Turbidity Clear (Clear) 03/16/17 12:25 Urine pH 7.0 (5.0-7.0) 03/16/17 12:25 Ur Specific [place] 1.017 (1.003-1.030) 03/16/17 12:25 Urine Protein 100 mg/dl mg/dL (Negative) 03/16/17 12:25 Urine Glucose (UA) >=500 mg/dL (Negative) 03/16/17 12:25 Urine Ketones Neg mg/dL (Negative) 03/16/17 12:25 Urine Blood Neg (Negative) 03/16/17 12:25 Urine Nitrite Neg (Negative) 03/16/17 12:25 Urine Bilirubin Neg (Negative) 03/16/17 12:25 Urine Urobilinogen < 2.0 mg/dL (<2.0) 03/16/17 12:25 Ur Leukocyte Esterase Neg (Negative) 03/16/17 12:25 Urine WBC (Auto) 1.0 /HPF (0.0-6.0) 03/16/17 12:25 Urine RBC (Auto) 1.0 /HPF (0.0-6.0) 03/16/17 12:25 U Epithel Cells (Auto) 5.0 /HPF (0-13.0) 03/16/17 12:25 Urine Mucus Few /HPF 03/16/17 12:25
[2017-03-17 14:53] LABS: Iron 14 ug/dL (37-170); Lactate Dehydrogenase 202 units/L (91-180); Total Iron Binding Capacity 226 mcg/dL (250-450)
[2017-03-17 15:07] LABS: Reticulocyte % 1.54 % (0.78-2.58)
[2017-03-17] MEDS: LEVEMIR SUB-Q SCH (22:51)
[2017-03-18] MEDS: PROTONIX 80 MG in NACL 0.9% 100 ML IV SCH ×3 (02:27→17:04)
[2017-03-18] MEDS: ZOFRAN IV PRN ×5 (02:28→22:15)
[2017-03-18] MEDS: DILAUDID IV PRN ×5 (02:28→22:22)
[2017-03-18] MEDS: HEPARIN SUB-Q SCH ×3 (06:50→22:15)
[2017-03-18 08:19] LABS: Mean Corpuscular HGB Conc 29 % (30-34); Mean Corpuscular Volume 71 fl (79-97); Platelet Count 257 K/mm3 (140-440); Red Blood Count 4.11 M/mm3 (3.65-5.03); White Blood Count 7.4 K/mm3 (4.5-11.0)
[2017-03-18 08:27] LABS: Hemoglobin 8.5 gm/dl (10.1-14.3); Mean Corpuscular Hemoglobin 21 pg (28-32)
[2017-03-18 08:38] LABS: Calcium 8.2 mg/dL (8.4-10.2); Chloride 106.2 mmol/L (98-107); Potassium 4.5 mmol/L (3.6-5.0)
--- NOTE | 2017-03-18 08:59 | Discharge Summary ---
Providers - Providers Date of Admission: 03/16/17 12:45 Date of discharge: 03/19/17 Attending physician: AKOSUA WANG Primary care physician: ADVERTISING SALES MANAGER Hospitalization Reason for admission: n/v Condition: Stable Hospital course: This is a 47-year-old female with history of hypertension, diabetes mellitus type 2, CHF and diabetic gastroparesis who presented to the emergency department with complaints of intractable nausea and vomiting. Patient also reported some abdominal pain described as a constant dull, diffuse pain that intermittently becomes sharp and well localized. The pain reportedly increased progressively prior to admission. Etiology of the symptoms was secondary to diabetic gastroparesis and reflux. Patient's symptoms quickly resolved after admission with supportive care, IV fluid hydration, pain medication and antiemetics. Patient was noted to have some mild renal insufficiency initially thought to be secondary to dehydration and vasomotor nephropathy. However, patient most likely has some underlying CKD from hypertension and diabetes mellitus type 2. Renal ultrasound was obtained which revealed medical renal disease. Nephrology saw the patient in consultation. Nephrology was in agreement with the patient having some underlying CKD and felt the patient could be followed up as an outpatient in their office. Patient is felt to have received maximal hospital benefit and will be discharged home. Didn't get discharged from 33 minutes. Disposition: DISCHARGED TO HOME OR SELFCARE Time spent for discharge: 33 - Discharge Diagnoses (1) ARF (acute renal failure) Status: Acute Qualifiers: Acute renal failure type: unspecified Qualified Code(s): N17.9 - Acute kidney failure, unspecified Comment: Vasomotor Nephropathy: Present on Admission. (2) Anemia Status: Acute Qualifiers: Anemia type: unspecified type Iron deficiency anemia type: I Vitamin B12 deficiency anemia type: V Folate deficiency anemia type: F Bone marrow failure anemia type: B Hemolytic anemia type: H Other causes of anemia: O Qualified Code(s): D64.9 - Anemia, unspecified (3) Hyperglycemia due to type 1 diabetes mellitus Status: Acute (4) Uncontrolled hypertension Status: Acute (5) Gastroparesis Status: Chronic (6) Uncontrolled diabetes mellitus Status: Chronic Qualifiers: Diabetes mellitus type: type 2 Diabetes mellitus complication status: with neurologic complications Diabetes mellitus complication detail: with autonomic neuropathy Diabetic retinopathy severity: D Proliferative retinopathy type: P Diabetes mellitus macular edema: D Diabetes mellitus termite control technician insulin use: with termite control technician use Laterality: L Chronic kidney disease stage: C Qualified Code(s): E11.43 - Type 2 diabetes mellitus with diabetic autonomic (poly)neuropathy; E11.65 - Type 2 diabetes mellitus with hyperglycemia; Z79.4 - emt intermediate (current) use of insulin (7) DEWAYNE (acute kidney injury) Status: Acute Core Measure Documentation - Palliative Care Palliative Care/ Comfort Measures: Not Applicable - Core Measures Any of the following diagnoses?: none Exam - Constitutional Vitals: Temp Pulse Resp BP Pulse Ox 98.9 F 78 18 104/72 97 03/18/17 08:06 03/18/17 08:06 03/18/17 08:06 03/18/17 08:06 03/18/17 06:20 General appearance: Present: no acute distress, well-nourished - EENT Eyes: Present: PERRL ENT: hearing intact, clear oral mucosa - Neck Neck: Present: supple, normal ROM - Respiratory Respiratory effort: normal Respiratory: bilateral: CTA - Cardiovascular Heart Sounds: Present: S1 & S2. Absent: rub, click - Extremities Extremities: pulses symmetrical, No edema Peripheral Pulses: within normal limits - Abdominal General gastrointestinal: Present: soft, non-tender, non-distended, normal bowel sounds Female genitourinary: Present: normal - Integumentary Integumentary: Present: clear, warm, dry - Musculoskeletal Musculoskeletal: gait normal, strength equal bilaterally - Psychiatric Psychiatric: appropriate mood/affect, intact judgment & insight - Neurologic Neurologic: CNII-XII intact, moves all extremities Plan Activity: no restrictions Weight Bearing Status: Full Weight Bearing Diet: diabetic, renal Follow up with: PRIMARY CAREMD [Primary Care Provider] - 3-5 Days ELAINE GARCIA MD [Staff Physician] - 7 Days Prescriptions: Gabapentin [Neurontin] 800 mg PO TID #90 tablet Insulin Glargine,Hum.rec.anlog [Lantus Solostar] 40 unit SQ QHS #30 insuln.pen Lisinopril [Zestril TAB] 40 mg PO DAILY #30 tablet Simvastatin [Zocor TAB] 40 mg PO DAILY #30 tablet
[2017-03-18] MEDS: NEURONTIN PO SCH ×3 (09:39→22:15)
[2017-03-18] MEDS: ZOCOR PO SCH (09:39)
[2017-03-18] MEDS: ZESTRIL PO SCH (09:39)
[2017-03-18] MEDS: NOVOLOG SUB-Q SCH ×8 (09:58→22:35)
[2017-03-18] MEDS: NACL 0.9% 1000 ML 1,000 ML IV SCH (10:41)
--- NOTE | 2017-03-18 10:54 | Progress Note ---
Assessment and Plan Assessment and plan: Acute renal failure. Etiology likely secondary to vasomotor nephropathy/ dehydration. Continue IV fluid hydration. Creatinine is worse today. Nephrology consultation. Follow-up renal ultrasound. Diabetic gastroparesis. Continue Protonix, Reglan and Zofran. Continue supportive care. Melena. Patient denies any NSAID use. Follow-up H&H is stable. Patient will need GI follow-up as an outpatient. Anemia. Etiology may be secondary to chronic blood loss. Follow-up iron studies, B12, folate, reticulocyte count and LDH. GI follow-up. Hyperkalemia. Etiology secondary to #1. Resolved. Diabetes mellitus type 2, uncontrolled. Continue sliding-scale and Accu-Cheks. DVT prophylaxis. History Interval history: Patient reports nausea but no vomiting this morning. Patient does report melena 2 night. No new episodes. Hospitalist Physical - Constitutional Vitals: Temp Pulse Resp BP Pulse Ox 98.9 F 86 18 146/74 97 03/18/17 08:06 03/18/17 09:38 03/18/17 08:06 03/18/17 09:38 03/18/17 06:20 General appearance: Present: no acute distress, well-nourished, obese - EENT Eyes: Present: PERRL, EOM intact ENT: hearing intact, clear oral mucosa, dentition normal - Neck Neck: Present: supple, normal ROM - Respiratory Respiratory effort: normal Respiratory: bilateral: CTA - Cardiovascular Rhythm: regular Heart Sounds: Present: S1 & S2. Absent: gallop, rub - Extremities Extremities: no ischemia, No edema, Full ROM - Abdominal General gastrointestinal: soft, non-tender, non-distended, normal bowel sounds - Integumentary Integumentary: Present: clear, warm, dry - Neurologic Neurologic: CNII-XII intact, moves all extremities Results - Labs CBC & Chem 7: 03/18/17 07:44 03/18/17 07:44 Labs: Laboratory Last Values WBC 7.4 K/mm3 (4.5-11.0) 03/18/17 07:44 RBC 4.11 M/mm3 (3.65-5.03) 03/18/17 07:44 Hgb 8.5 gm/dl (10.1-14.3) L 03/18/17 07:44 Hct 29.0 % (30.3-42.9) L 03/18/17 07:44 MCV 71 fl (79-97) L 03/18/17 07:44 MCH 21 pg (28-32) L 03/18/17 07:44 MCHC 29 % (30-34) L 03/18/17 07:44 RDW 18.0 % (13.2-15.2) H 03/18/17 07:44 Plt Count 257 K/mm3 (140-440) 03/18/17 07:44 Lymph % (Auto) 38.5 % (13.4-35.0) H 03/17/17 08:17 [place] % (Auto) 8.0 % (0.0-7.3) H 03/17/17 08:17 Eos % (Auto) 3.9 % (0.0-4.3) 03/17/17 08:17 Baso % (Auto) 0.8 % (0.0-1.8) 03/17/17 08:17 Lymph # 2.4 K/mm3 (1.2-5.4) 03/17/17 08:17 [place] # 0.5 K/mm3 (0.0-0.8) 03/17/17 08:17 Eos # 0.2 K/mm3 (0.0-0.4) 03/17/17 08:17 Baso # 0.1 K/mm3 (0.0-0.1) 03/17/17 08:17 Seg Neutrophils % 48.8 % (40.0-70.0) 03/17/17 08:17 Seg Neutrophils # 3.0 K/mm3 (1.8-7.7) 03/17/17 08:17 Percent Retic 1.54 % (0.78-2.58) 03/17/17 08:17 VBG pH 7.348 (7.320-7.420) 03/16/17 10:17 Sodium 141 mmol/L (137-145) 03/18/17 07:44 Potassium 4.5 mmol/L (3.6-5.0) 03/18/17 07:44 Chloride 106.2 mmol/L (98-107) 03/18/17 07:44 Carbon Dioxide 21 mmol/L (22-30) L 03/18/17 07:44 Anion Gap 18 mmol/L 03/18/17 07:44 BUN 16 mg/dL (7-17) 03/18/17 07:44 Creatinine 2.0 mg/dL (0.7-1.2) H 03/18/17 07:44 Estimated GFR 32 ml/min 03/18/17 07:44 BUN/Creatinine Ratio 8.00 % 03/18/17 07:44 Glucose 98 mg/dL (65-100) 03/18/17 07:44 POC Glucose 170 (70-105) H 03/17/17 21:46 Hemoglobin A1c 14.0 % (4-6) H 03/17/17 08:17 Calcium 8.2 mg/dL (8.4-10.2) L 03/18/17 07:44 Iron 14 ug/dL (37-170) L 03/17/17 08:17 TIBC 226 mcg/dL (250-450) L 03/17/17 08:17 Lactate Dehydrogenase 202 units/L (91-180) H 03/17/17 08:17 Vitamin B12 432.9 pg/mL (211-911) 03/17/17 08:17 Folate 10.54 ng/mL (7.3-26.0) 03/17/17 08:17 Urine Color Straw (Yellow) 03/16/17 12:25 Urine Turbidity Clear (Clear) 03/16/17 12:25 Urine pH 7.0 (5.0-7.0) 03/16/17 12:25 Ur Specific [place] 1.017 (1.003-1.030) 03/16/17 12:25 Urine Protein 100 mg/dl mg/dL (Negative) 03/16/17 12:25 Urine Glucose (UA) >=500 mg/dL (Negative) 03/16/17 12:25 Urine Ketones Neg mg/dL (Negative) 03/16/17 12:25 Urine Blood Neg (Negative) 03/16/17 12:25 Urine Nitrite Neg (Negative) 03/16/17 12:25 Urine Bilirubin Neg (Negative) 03/16/17 12:25 Urine Urobilinogen < 2.0 mg/dL (<2.0) 03/16/17 12:25 Ur Leukocyte Esterase Neg (Negative) 03/16/17 12:25 Urine WBC (Auto) 1.0 /HPF (0.0-6.0) 03/16/17 12:25 Urine RBC (Auto) 1.0 /HPF (0.0-6.0) 03/16/17 12:25 U Epithel Cells (Auto) 5.0 /HPF (0-13.0) 03/16/17 12:25 Urine Mucus Few /HPF 03/16/17 12:25
--- NOTE | 2017-03-18 11:11 | Consultation ---
History of Present Illness - Reason for Consult Consult date: 03/18/17 acute renal failure, chronic renal failure Requesting physician: AKOSUA WANG - History of Present Illness Patient is 47 years-old with the Hx of uncontrolled HTN, uncontrolled DM, CHF, gastroparesis came in today to ED with epigastric pain she complain she had severe nausea and has had 6 episodes of bilious vomiting despite not having taken anything by mouth since yesterday. Vomiting is the only thing that seems to provide some minimal relief. Currently,the pain is described as a constant dull, diffuse pain that intermittently becomes sharp and well localized. The intensity of the pain has been increasing since yesterday and on pain scale she now rates the pain at 9/10.She denies fever, malaise or chills. Review of Systems Constitutional: no weight loss, no weight gain, no fever, no chills, no sweats, no night sweats, no anorexia, no fatigue, no weakness, no malaise, no poor appetite Ears, nose, mouth and throat: deferred Breasts: deferred Cardiovascular: high blood pressure, no chest pain, no orthopnea, no edema, no syncope, no lightheadedness, no shortness of breath Respiratory: no cough, no shortness of breath, no dyspnea on exertion Gastrointestinal: nausea, vomiting, loss of appetite, heartburn, belching, no diarrhea, no constipation, no change in bowel habits, no hematemesis, no excessive gas, no jaundice, no dyspepsia/bloating, no early satiety Genitourinary Female: no pelvic pain, no flank pain, no urinary frequency Musculoskeletal: no neck stiffness, no neck pain, no shooting arm pain Integumentary: no rash, no pruritis Neurological: no head injury, no transient paralysis, no paralysis, no weakness , no parathesias Psychiatric: no anxiety, no memory loss, no change in sleep habits, no sleep disturbances Endocrine: no cold intolerance, no heat intolerance Hematologic/Lymphatic: no easy bruising, no easy bleeding Allergic/Immunologic: no urticaria, no allergic rhinitis, no wheezing Past History Past Medical History: CAD, diabetes, heart failure, hypertension, hyperlipidemia Past Surgical History: Other (Right great toe amputation, breast reduction, Ectopic ) Social history: , lives with family. denies: smoking, alcohol abuse, prescription drug abuse Family history: diabetes, hypertension Medications and Allergies Allergies Allergy/AdvReac Type Severity Reaction Status Date / Time metoclopramide HCl Allergy Swelling Verified 02/20/17 09:06 [From Reglan] morphine Allergy Itching Verified 02/20/17 09:06 oxycodone HCl [From Percocet] Allergy Swelling Verified 02/20/17 09:06 shellfish derived Allergy Swelling Verified 02/20/17 09:06 Home Medications Medication Instructions Recorded Confirmed Last Taken Type Gabapentin [Neurontin] 800 mg PO TID 07/07/13 03/16/17 03/15/17 History Lisinopril [Zestril TAB] 40 mg PO DAILY 08/14/15 03/16/17 03/15/17 History Insulin Aspart [NovoLOG 100 15 unit SQ TID 11/29/15 03/16/17 03/16/17 History UNITS/ML VIAL] Sitagliptin Phos/Metformin HCl 1 each PO BID 09/13/16 03/16/17 03/16/17 History [Janumet 50-500 mg Tablet] Insulin Glargine,Hum.rec.anlog 40 unit SQ QHS 03/16/17 03/16/17 03/15/17 History [Lantus Solostar] Simvastatin [Zocor TAB] 40 mg PO DAILY 03/16/17 03/16/17 03/15/17 History Active Meds: Active Medications Acetaminophen (Tylenol) 650 mg PO Q4H PRN PRN Reason: Pain MILD(1-3)/Fever >100.5/[place] Bisacodyl (Dulcolax) 10 mg NC QDAY PRN PRN Reason: Constipation unrelieved by MOM Gabapentin (Neurontin) 800 mg PO TID [facility] Last Admin: 03/18/17 09:39 Dose: 800 mg Heparin Sodium (Porcine) (Heparin) 5,000 unit SUB-Q Q8HR [facility] Last Admin: 03/18/17 06:50 Dose: 5,000 unit Hydromorphone HCl (Dilaudid) 1 mg IV Q4H PRN PRN Reason: Pain , Severe (7-10) Last Admin: 03/18/17 06:51 Dose: 1 mg Pantoprazole Sodium 80 mg/ (Sodium Chloride) 100 mls @ 10 mls/hr IV Q10H [facility] PRN Reason: 8 MG/HR Last Admin: 03/18/17 10:40 Dose: 8 mg/hr, 10 mls/hr Sodium Chloride (Nacl 0.9% 1000 Ml) 1,000 mls @ 75 mls/hr IV DIRECT [facility] Last Admin: 03/18/17 10:41 Dose: 75 mls/hr Insulin Aspart (Novolog) 15 units SUB-Q TID [facility] Last Admin: 03/18/17 09:58 Dose: 15 units Insulin Aspart (Novolog) 0 units SUB-Q ACHS [facility] PRN Reason: Protocol Last Admin: 03/18/17 10:41 Dose: Not Given Insulin Detemir (Levemir) 40 units SUB-Q QHS [facility] Last Admin: 03/17/17 22:51 Dose: 40 units Lisinopril (Zestril) 40 mg PO DAILY [facility] Last Admin: 03/18/17 09:39 Dose: 40 mg Magnesium Hydroxide (Milk Of Magnesia) 30 ml PO Q4H PRN PRN Reason: Constipation Ondansetron HCl (Zofran) 4 mg IV Q4H PRN PRN Reason: N/V unrelieved by Reglan Last Admin: 03/18/17 06:51 Dose: 4 mg Simvastatin (Zocor) 40 mg PO DAILY [facility] Last Admin: 03/18/17 09:39 Dose: 40 mg Exam - Vital Signs Vital signs: Vital Signs Temp Pulse Resp BP Pulse Ox 98.4 F 88 18 173/96 98 03/16/17 10:00 03/16/17 10:00 03/16/17 10:00 03/16/17 10:00 03/16/17 10:00 - Physical Exam Narrative exam: General appearance: Present: no acute distress, well-nourished, obese - EENT Eyes: Present: PERRL ENT: hearing intact, clear oral mucosa - Neck Neck: Present: supple, normal ROM - Respiratory Respiratory effort: normal Respiratory: right: CTA - Cardiovascular Rhythm: regular Heart Sounds: Present: S1 & S2. Absent: systolic murmur, diastolic murmur, rub , click - Extremities Extremities: no ischemia, pulses intact, pulses symmetrical Peripheral Pulses: within normal limits - Abdominal General gastrointestinal: Present: soft, tender (Slight tenderness,No guarding) , non-distended, normal bowel sounds Localized gastrointestinal: guarding: epigastric periumbilical Female genitourinary: Present: normal - Rectal Rectal Exam: deferred - Integumentary Integumentary: Present: clear, warm, dry - Musculoskeletal Musculoskeletal: gait normal, strength equal bilaterally - Psychiatric Psychiatric: appropriate mood/affect, intact judgment & insight - Neurologic Neurologic: CNII-XII intact, moves all extremities Results - Lab Results 03/18/17 07:44 03/18/17 07:44 Most recent lab results Calcium 8.2 mg/dL (8.4-10.2) L 03/18/17 07:44 Assessment and Plan Impression: * DEWAYNE on ?ckd--history of fluctuation cr * Uncontrolled HTN * Uncontrolled DM * N/V/D * volume depletion Plan: * ivfs * follow up renal us and post void * may have ckd due to HTN/DM * avoid nephrotoxins * strict i/os * daily lytes
[2017-03-18] MEDS ORDERED: NACL 0.45% 1000 ML 1,000 ML IV SCH (12:00)
[2017-03-18 12:28] LABS: Blastocytes % (Manual) 0 %
[2017-03-18 12:29] LABS: Anisocytosis 1+; Hypochromasia 1+
[2017-03-18 12:30] LABS: Diff Status Complete; Platelet Estimate Consistent w Auto
[2017-03-18] MEDS ORDERED: NEURONTIN PO SCH (14:00)
[2017-03-18] MEDS: LEVEMIR SUB-Q SCH (22:16)
[2017-03-19] MEDS: DILAUDID IV PRN ×2 (02:33→08:26)
[2017-03-19] MEDS: PROTONIX 80 MG in NACL 0.9% 100 ML IV SCH ×2 (02:34→13:31)
[2017-03-19] MEDS: ZOFRAN IV PRN ×3 (02:34→14:08)
[2017-03-19] MEDS: NEURONTIN PO SCH ×2 (06:26→13:28)
[2017-03-19] MEDS: HEPARIN SUB-Q SCH ×2 (06:26→14:08)
[2017-03-19 07:20] LABS: Basophils % (Auto) 0.5 % (0.0-1.8); Eosinophils % (Auto) 3.1 % (0.0-4.3); Hematocrit 24.4 % (30.3-42.9); Hemoglobin 7.3 gm/dl (10.1-14.3); Mean Corpuscular HGB Conc 30 % (30-34); Mean Corpuscular Hemoglobin 21 pg (28-32); Mean Corpuscular Volume 70 fl (79-97); Platelet Count 224 K/mm3 (140-440); Red Blood Count 3.48 M/mm3 (3.65-5.03); Red Cell Distribution Width 17.9 % (13.2-15.2); White Blood Count 6.8 K/mm3 (4.5-11.0)
[2017-03-19 08:04] LABS: BUN/Creatinine Ratio 7.89; Calcium 8.2 mg/dL (8.4-10.2); Potassium 4.5 mmol/L (3.6-5.0)
--- NOTE | 2017-03-19 09:25 | Ultrasound Report ---
ULTRASOUND RENAL INDICATION: Acute renal failure. COMPARISON: 11/15/2015 CT. FINDINGS: Renal sonography suggests top normal/borderline increased renal cortical echogenicity. Grossly preserved contours. No hydronephrosis. RIGHT KIDNEY measures 10.7 x 5.3 x 6.3 cm with cortical thickness of 1.6 cm. LEFT KIDNEY estimated at 10.6 x 5.5 x 4.7 cm with cortical thickness of 1.3 cm. URINARY BLADDER appears within normal limits. CONCLUSION: Mild underlying medical renal disease possible sonographically without acute renal abnormality. Please correlate. Thank you for the opportunity to participate in this patient's care.
--- NOTE | 2017-03-19 10:22 | Progress Note ---
Assessment and Plan Impression: * DEWAYNE on ?ckd--history of fluctuation cr * Uncontrolled HTN * Uncontrolled DM * N/V/D * volume depletion Plan: * ivfs * follow up renal us noted, no hydro or mass * may have ckd due to HTN/DM * avoid nephrotoxins * strict i/os * daily lytes * cr 1.9 today, ok to dc home, follow up on office 2 weeks Subjective Date of service: 03/19/17 Principal diagnosis: ckd Interval history: resting well in bed today Objective - Exam Narrative Exam: General appearance: Present: no acute distress, well-nourished, obese - EENT Eyes: Present: PERRL ENT: hearing intact, clear oral mucosa - Neck Neck: Present: supple, normal ROM - Respiratory Respiratory effort: normal Respiratory: right: CTA - Cardiovascular Rhythm: regular Heart Sounds: Present: S1 & S2. Absent: systolic murmur, diastolic murmur, rub , click - Extremities Extremities: no ischemia, pulses intact, pulses symmetrical Peripheral Pulses: within normal limits - Abdominal General gastrointestinal: Present: soft, tender (Slight tenderness,No guarding) , non-distended, normal bowel sounds Localized gastrointestinal: guarding: epigastric periumbilical Female genitourinary: Present: normal - Rectal Rectal Exam: deferred - Integumentary Integumentary: Present: clear, warm, dry - Musculoskeletal Musculoskeletal: gait normal, strength equal bilaterally - Psychiatric Psychiatric: appropriate mood/affect, intact judgment & insight - Neurologic Neurologic: CNII-XII intact, moves all extremities - Vital Signs Vital signs: Vital Signs - 12hr 03/19/17 03/19/17 01:34 04:45 Temperature 98.1 F 98.0 F Pulse Rate [ 89 79 Right Radial] Respiratory 20 20 Rate Blood Pressure 161/72 137/74 [Right Radial Artery] O2 Sat by Pulse 98 96 Oximetry - Lab 03/19/17 06:12 03/19/17 06:12 Most recent lab results Calcium 8.2 mg/dL (8.4-10.2) L 03/19/17 06:12
[2017-03-19] MEDS: ZESTRIL PO SCH (10:48)
[2017-03-19] MEDS: ZOCOR PO SCH (10:48)
[2017-03-19] MEDS: NOVOLOG SUB-Q SCH ×3 (10:50→16:11)
[2017-03-19 14:50] VITALS: BP 170/83
== END 2017-03-19 16:18 | disposition home or self-care (01) | DRG 291 ==
LOC: ED 08:44 → 4A 12:45
PROVIDERS: ADMIT Internal Medicine; ATTEND Hospitalist
DX: I13.0 Hypertensive heart and chronic kidney disease with heart failure and stage 1 through stage 4 chronic kidney disease, or unspecified chronic kidney disease (principal); N17.0 Acute kidney failure with tubular necrosis; K92.1 Melena; E11.43 Type 2 diabetes mellitus with diabetic autonomic (poly)neuropathy; K21.9 Gastro-esophageal reflux disease without esophagitis; K31.84 Gastroparesis; E87.5 Hyperkalemia; N18.9 Chronic kidney disease, unspecified; I50.9 Heart failure, unspecified; E11.65 Type 2 diabetes mellitus with hyperglycemia; E11.22 Type 2 diabetes mellitus with diabetic chronic kidney disease; I25.10 Atherosclerotic heart disease of native coronary artery without angina pectoris; Z88.8 Allergy status to other drugs, medicaments and biological substances; Z91.013 Allergy to seafood; Z86.73 Personal history of transient ischemic attack (TIA), and cerebral infarction without residual deficits; Z90.49 Acquired absence of other specified parts of digestive tract; Z88.6 Allergy status to analgesic agent; Z89.411 Acquired absence of right great toe; Z83.3 Family history of diabetes mellitus; Z82.49 Family history of ischemic heart disease and other diseases of the circulatory system; Z79.4 Long term (current) use of insulin; D50.0 Iron deficiency anemia secondary to blood loss (chronic)
CPT/HCPCS: 36415; 71010; 76770; 80048; 81001; 82607; 82747; 82805; 82962; 83036; 83550; 83615; 85007; 85025; 85045; 93005; 93010; 96361; 96374; 96375; C9113; J1170; J1644; J1815; J1818; J2405; J7030

== ENCOUNTER 2017-11-08 06:40 | Emergency (ER) | payer BC ==
[2017-11-08 07:59] LABS: Alanine Aminotransferase 29 units/L (7-56); Albumin 2.8 g/dL (3.9-5); BUN/Creatinine Ratio 17; Blood Urea Nitrogen 31 mg/dL (7-17); Calcium 8.7 mg/dL (8.4-10.2); Hemolysis Index 44; Lipase 79 units/L (13-60)
[2017-11-08 08:03] LABS: Basophils % (Auto) 0.4 % (0.0-1.8); Eosinophils # (Auto) 0.1 K/mm3 (0.0-0.4); Hematocrit 34.2 % (30.3-42.9); Hemoglobin 10.5 gm/dl (10.1-14.3); Lymphocytes # (Auto) 1.8 K/mm3 (1.2-5.4); Lymphocytes % (Auto) 25.2 % (13.4-35.0); Mean Corpuscular HGB Conc 31 % (30-34); Mean Corpuscular Volume 82 fl (79-97); Monocytes # (Auto) 0.8 K/mm3 (0.0-0.8); Monocytes % (Auto) 10.6 % (0.0-7.3); Platelet Count 167 K/mm3 (140-440); Red Blood Count 4.15 M/mm3 (3.65-5.03); Red Cell Distribution Width 18.6 % (13.2-15.2)
[2017-11-08 08:10] LABS: Mean Corpuscular Hemoglobin 25 pg (28-32)
[2017-11-08] MEDS ORDERED: NACL 0.9% 1000 ML 1,000 ML IV ONE ×2 (10:26→12:39)
--- NOTE | 2017-11-08 11:22 | Emergency Department Report ---
HPI - General Chief Complaint: Abdominal Pain Time Seen by Provider: 11/08/17 11:15 - HPI HPI: The patient's 47-year-old female with a history of diabetes, presents for evaluation of abdominal pain. The patient reports constant abdominal pain for the past week, 10/10 in severity, crampy in burning in quality, epigastric and left upper quadrant in location, exacerbated with retching. She has also experienced recurrent severe nausea without vomiting and loose watery stools for blood. The patient denies fever, chills, night sweats, chest pain, dyspnea, blood in the stool, dark tarry stool, dysuria, hematuria, flank pain, genital discharge, inability to pass flatus. ED Past Medical Hx - Past Medical History Previous Medical History?: Yes Hx Hypertension: Yes Hx CVA: Yes (x2) Hx Congestive Heart Failure: Yes Hx Diabetes: Yes Hx Asthma: No Hx COPD: No Hx HIV: No Additional medical history: gastroparesis. neuropathy - Surgical History Past Surgical History?: Yes Hx Cholecystectomy: Yes Hx Breast Surgery: Yes Additional Surgical History: breast reduction. Right great toe amputation. Ectopic - Social History Smoking Status: Never Smoker Substance Use Type: None - Medications Home Medications: Home Medications Medication Instructions Recorded Confirmed Last Taken Type Sitagliptin Phos/Metformin HCl 1 each PO BID 09/13/16 03/16/17 03/16/17 History [Janumet 50-500 mg Tablet] Gabapentin [Neurontin] 800 mg PO TID #90 tablet 03/19/17 Unknown Rx Insulin Glargine,Hum.rec.anlog 40 unit SQ QHS #30 insuln.pen 03/19/17 Unknown Rx [Lantus Solostar] Lisinopril [Zestril TAB] 40 mg PO DAILY #30 tablet 03/19/17 Unknown Rx Simvastatin [Zocor TAB] 40 mg PO DAILY #30 tablet 03/19/17 Unknown Rx traMADol [Ultram 50 MG tab] 50 mg PO Q4HR PRN #10 tablet 03/19/17 Unknown Rx Cyclobenzaprine HCl [Flexeril 5 MG 5 mg PO Q8HR PRN #12 tab 11/08/17 Unknown Rx TAB] Ondansetron [Zofran TAB] 4 mg PO Q8HR PRN #15 tablet 11/08/17 Unknown Rx ED Review of Systems ROS: Stated complaint: ABD PAIN Other details as noted in HPI Constitutional: denies: fever ENT: denies: throat or neck pain Respiratory: denies: cough, shortness of breath Cardiovascular: denies: chest pain Endocrine: denies unexplained weight loss or gain Gastrointestinal: reports abdominal pain, nausea Genitourinary: denies: dysuria Musculoskeletal: denies: leg swelling Skin: denies: rash Neurological: denies: headache Hematological/Lymphatic: denies: easy bleeding or easy bruising Psych: denies sadness or hopelessness Physical Exam - Physical Exam Vital Signs: Vital Signs 11/08/17 06:44 Temperature 98.2 F Respiratory 16 Rate Blood Pressure 194/96 Physical Exam: General: well-nourished, well-developed, no acute distress Head: Normocephalic, atraumatic Eyes: normal sclera ENT: Mucous membranes are pale and dry Neck: No neck stiffness, no cervical adenopathy Respiratory: Breath sounds equal bilaterally, no wheezing, rales, or rhonchi Cardio: S1 and S2 present, no murmurs, rubs, gallops, capillary refill is delayed Abdomen: Normoactive bowel sounds, soft abdomen, LUQ, epigastric, and periumbilical abd pain, no rigidity, no guarding or rebound tenderness Chest WALL/Back: No tenderness to palpation of the chest wall, no CVA tenderness with percussion Musc: No pitting edema Skin: No rash Neuro: no facial drooping, normal speech Psych: Normal affect ED Course Vital Signs 11/08/17 06:44 Temperature 98.2 F Respiratory 16 Rate Blood Pressure 194/96 ED Medical Decision Making - Lab Data Result diagrams: 11/08/17 07:27 11/08/17 07:27 - Medical Decision Making The patient was seen and examined by myself. The patient is placed on a monitor tech and continuous pulse ox. On initial evaluation, the patient was found to be in no distress. Evaluation orders are placed. IV access is established and the patient is given 1 L normal saline fluid bolus and Zofran for nausea, and IV analgesic for pain. Lab results exhibited mildly elevated potassium, significant elevated glucose of 500, with normal venous pH and anion gap, not consistent with DKA. Is given IV insulin for treatment of hyperglycemia and hyperkalemia. The patient was reevaluated and reported that their symptoms were markedly improved. The patient is stable for discharge with outpatient follow-up. The patient is given follow-up and return instructions. The patient expressed understanding and agreed with the plan. The patient is discharged in stable condition. Critical care attestation.: If time is entered above; I have spent that time in minutes in the direct care of this critically ill patient, excluding procedure time. ED Disposition Clinical Impression: Abdominal pain, acute, periumbilical, Dehydration, Acute hyperglycemia Disposition: - TO HOME OR SELFCARE Is pt being admited?: No Does the pt Need Aspirin: No Condition: Stable Instructions: Abdominal Pain (ED), Diabetic Hyperglycemia (ED) Referrals: LYUDMILA PINEDA MD [Primary Care Provider] - 3-5 Days Time of Disposition: 15:00
--- NOTE | 2017-11-08 11:30 | XRay Report ---
PORTABLE CHEST: Hyperglycemia. An AP portable view of the chest demonstrates a normal cardiac contour considering the limits of this technique. The lungs are clear with no evidence of infiltrate, fluid or failure. IMPRESSION: Normal portable chest.
[2017-11-08 11:36] LABS: Bilirubin,Urine NEG (Negative); Blood,Urine SM (Negative); Color,Urine Straw (Yellow); Mucus,Urine FEW /HPF; Nitrite,Urine NEG (Negative); Urobilinogen,Urine < 2.0 mg/dL (<2.0)
[2017-11-08] MEDS ORDERED: ATIVAN IV ONE (12:39)
[2017-11-08] MEDS ORDERED: ZOFRAN IV ONE (12:39)
[2017-11-08] MEDS ORDERED: SUBLIMAZE IV ONE (12:39)
[2017-11-08 15:57] VITALS: BP 171/90
== END 2017-11-08 15:58 | disposition home or self-care (01) ==
LOC: ED 06:40
DX: R10.33 Periumbilical pain (principal); E86.0 Dehydration; E11.65 Type 2 diabetes mellitus with hyperglycemia; I10 Essential (primary) hypertension; I63.9 Cerebral infarction, unspecified; K31.84 Gastroparesis; Z90.49 Acquired absence of other specified parts of digestive tract; Z79.4 Long term (current) use of insulin
CPT/HCPCS: 36415; 71045; 80053; 81001; 82805; 82962; 83690; 85025; 93005; 93010; 96361; 96374; 96375; 99284; J2060; J2405; J3010; J7030; J1815

== ENCOUNTER 2019-01-17 15:44 | Inpatient (IN) | payer BC ==
--- NOTE | 2019-01-17 16:06 | Emergency Department Report ---
Blank Doc - Documentation Documentation: 48 y o Female presents with chestpain x 1 day, pain localized to left-mid sided pmh of CHF,CKD,DM. states feeling weak. labs ordered EKG completed main ED
[2019-01-17 16:42] LABS: Basophils % (Auto) 0.6 % (0.0-1.8); Eosinophils % (Auto) 0.4 % (0.0-4.3); Hematocrit 30.9 % (30.3-42.9); Hemoglobin 9.5 gm/dl (10.1-14.3); Lymphocytes # (Auto) 2.1 K/mm3 (1.2-5.4); Lymphocytes % (Auto) 24.9 % (13.4-35.0); Mean Corpuscular HGB Conc 31 % (30-34); Mean Corpuscular Volume 72 fl (79-97); Monocytes # (Auto) 0.6 K/mm3 (0.0-0.8); Monocytes % (Auto) 6.5 % (0.0-7.3); Platelet Count 271 K/mm3 (140-440); Red Blood Count 4.28 M/mm3 (3.65-5.03); Red Cell Distribution Width 17.9 % (13.2-15.2)
--- NOTE | 2019-01-17 17:00 | Emergency Department Report ---
ED Chest Pain HPI - General Chief Complaint: Chest Pain Stated Complaint: WEAK/CHEST PAIN/SOB Time Seen by Provider: 01/17/19 16:01 Source: patient Mode of arrival: Ambulatory Limitations: No Limitations - History of Present Illness Initial Comments: 48-year-old female with a past medical history of diabetes on insulin, CHF with unknown ejection fraction, hypertension, gastroparesis, elevated cholesterol, and previous cholecystectomy presents to the hospital with complaints of abdominal pain, nausea, vomiting, generalized weakness, and chest pain. Symptom onset yesterday. Patient has been compliant with insulin. She not checked her glucose since yesterday. Her glucose typically runs in the low 200s. Since yesterday she has had epigastric pain with nausea and vomiting. She denies dysuria, hematemesis, hematochezia, melena, fever, or diarrhea. She also complained of pain radiating across her chest with mild and occasional shortness of breath. Last stress test was approximately 5 years ago. Severity scale (0 -10): 0 - Related Data Home Medications Medication Instructions Recorded Confirmed Last Taken Sitagliptin Phos/Metformin HCl 1 each PO BID 09/13/16 01/19/19 01/17/19 [Janumet 50-500 mg Tablet] 25/50 Furosemide [Lasix TAB] 40 mg PO BID 01/19/19 01/19/19 01/17/19 40 mg Gabapentin [Neurontin] 300 mg PO TID 01/19/19 01/19/19 01/17/19 300mg Hydralazine HCl 50 mg PO 01/19/19 01/17/19 50 MG Isosorbide Dinitrate 30 mg PO QDAY 01/19/19 01/19/19 01/17/19 30 mg Lispro Insulin [Humalog] 15 unit SQ 01/19/19 01/17/19 15 u Metaxalone 30 mg PO INTRAOP 01/19/19 01/19/19 01/17/19 30mg Previous Rx's Medication Instructions Recorded Last Taken Type Insulin Glargine,Hum.rec.anlog 40 unit SQ QHS #30 insuln.pen 03/19/17 01/17/19 Rx [Lantus Solostar] Simvastatin [Zocor TAB] 40 mg PO DAILY #30 tablet 03/19/17 01/17/19 Rx 40mg Allergies Allergy/AdvReac Type Severity Reaction Status Date / Time metoclopramide HCl Allergy Swelling Verified 01/17/19 15:50 [From Reglan] morphine Allergy Itching Verified 01/17/19 15:50 oxycodone HCl [From Percocet] Allergy Swelling Verified 01/17/19 15:50 shellfish derived Allergy Swelling Verified 01/17/19 15:50 Heart Score - HEART Score History: Slightly suspicious EKG: Non-specific Age: 45-65 Risk factors: > 3 risk factors or hx of atherosclerotic disease Troponin: 1-3x normal limit HEART Score: 5 ED Review of Systems ROS: Stated complaint: WEAK/CHEST PAIN/SOB Other details as noted in HPI Comment: All other systems reviewed and negative ED Past Medical Hx - Past Medical History Hx Hypertension: Yes Hx CVA: Yes (x2) Hx Congestive Heart Failure: Yes Hx Diabetes: Yes Hx Asthma: No Hx COPD: No Hx HIV: No Additional medical history: gastroparesis. neuropathy - Surgical History Hx Cholecystectomy: Yes Hx Breast Surgery: Yes Additional Surgical History: breast reduction. Right great toe amputation. Ectopic - Social History Smoking Status: Never Smoker Substance Use Type: None - Medications Home Medications: Home Medications Medication Instructions Recorded Confirmed Last Taken Type Sitagliptin Phos/Metformin HCl 1 each PO BID 09/13/16 01/19/19 01/17/19 History [Janumet 50-500 mg Tablet] 25/50 Insulin Glargine,Hum.rec.anlog 40 unit SQ QHS #30 insuln.pen 03/19/17 01/19/19 01/17/19 Rx [Lantus Solostar] Simvastatin [Zocor TAB] 40 mg PO DAILY #30 tablet 03/19/17 01/19/19 01/17/19 Rx 40mg Furosemide [Lasix TAB] 40 mg PO BID 01/19/19 01/19/19 01/17/19 History 40 mg Gabapentin [Neurontin] 300 mg PO TID 01/19/19 01/19/19 01/17/19 History 300mg Hydralazine HCl 50 mg PO 01/19/19 01/17/19 History 50 MG Isosorbide Dinitrate 30 mg PO QDAY 01/19/19 01/19/19 01/17/19 History 30 mg Lispro Insulin [Humalog] 15 unit SQ 01/19/19 01/17/19 History 15 u Metaxalone 30 mg PO INTRAOP 01/19/19 01/19/19 01/17/19 History 30mg ED Physical Exam - General Limitations: No Limitations - Other Other exam information: General: No limitations, patient is alert in no acute distress Head exam: Atraumatic, normocephalic Eyes exam: Normal appearance, nonicteric sclera ENT: Moist mucous membrane Neck exam: Normal inspection, full range of motion, no meningismus nontender Respiratory exam: Clear to auscultation bilateral, no wheezes, rales, crackles Cardiovascular: Normal rate and rhythm, normal heart sounds Abdomen: Soft, nondistended, generalized tenderness greatest in the upper abdomen, with normal bowel sounds, no rebound, or guarding Extremity: Full range of motion normal inspection no deformity Back: Normal Inspection, full range of motion, no tenderness Neurologic: Alert, oriented x3, cranial nerves intact, no motor or sensory deficit Psychiatric: normal affect, normal mood Skin: Warm, dry, intact ED Course Vital Signs 01/17/19 01/17/19 01/17/19 15:50 17:30 19:04 Temperature 97.8 F Pulse Rate 90 105 H Pulse Rate [ From Monitor] Respiratory 18 18 Rate Blood Pressure 172/78 O2 Sat by Pulse 98 Oximetry 01/17/19 01/17/19 01/17/19 19:15 19:16 19:21 Temperature Pulse Rate 91 H 90 Pulse Rate [ From Monitor] Respiratory 10 L 16 10 L Rate Blood Pressure 169/89 187/92 O2 Sat by Pulse 96 90 Oximetry 01/17/19 01/17/19 01/17/19 19:30 19:45 20:00 Temperature Pulse Rate 89 92 H 86 Pulse Rate [ From Monitor] Respiratory 11 L 17 9 L Rate Blood Pressure 179/95 179/95 186/91 O2 Sat by Pulse 95 93 92 Oximetry 01/17/19 01/17/19 01/17/19 20:15 20:30 20:45 Temperature Pulse Rate 82 81 80 Pulse Rate [ From Monitor] Respiratory 6 L 7 L 8 L Rate Blood Pressure 169/80 178/84 196/85 O2 Sat by Pulse 81 L 86 88 Oximetry 01/17/19 01/17/19 01/17/19 21:00 21:15 21:37 Temperature Pulse Rate 79 81 88 Pulse Rate [ From Monitor] Respiratory 8 L 8 L Rate Blood Pressure 164/89 178/84 178/84 O2 Sat by Pulse 91 96 76 L Oximetry 01/17/19 01/17/19 01/17/19 21:45 22:01 22:15 Temperature Pulse Rate 82 83 83 Pulse Rate [ From Monitor] Respiratory 8 L 12 7 L Rate Blood Pressure 181/95 176/88 181/95 O2 Sat by Pulse 94 91 93 Oximetry 01/17/19 01/17/19 01/17/19 22:31 22:45 23:00 Temperature Pulse Rate 86 84 85 Pulse Rate [ From Monitor] Respiratory 12 7 L 9 L Rate Blood Pressure 174/80 176/88 181/107 O2 Sat by Pulse 98 86 93 Oximetry 01/17/19 01/17/19 01/17/19 23:15 23:31 23:45 Temperature Pulse Rate 85 86 90 Pulse Rate [ From Monitor] Respiratory 10 L 11 L 9 L Rate Blood Pressure 174/80 188/119 188/119 O2 Sat by Pulse 94 92 96 Oximetry 01/18/19 01/18/19 01/18/19 00:01 00:15 00:30 Temperature Pulse Rate 91 H 94 H 96 H Pulse Rate [ From Monitor] Respiratory 18 7 L 16 Rate Blood Pressure 170/80 170/80 184/118 O2 Sat by Pulse 98 97 91 Oximetry 01/18/19 01/18/19 01/18/19 00:45 01:01 01:15 Temperature Pulse Rate 90 90 89 Pulse Rate [ From Monitor] Respiratory 8 L 9 L 15 Rate Blood Pressure 184/118 145/79 145/79 O2 Sat by Pulse 89 90 90 Oximetry 01/18/19 01/18/19 01/18/19 01:30 01:45 02:00 Temperature Pulse Rate 91 H 89 86 Pulse Rate [ From Monitor] Respiratory 12 6 L 12 Rate Blood Pressure 158/79 158/79 120/73 O2 Sat by Pulse 93 91 89 Oximetry 01/18/19 01/18/19 01/18/19 02:15 02:31 02:45 Temperature Pulse Rate 93 H 91 H 88 Pulse Rate [ From Monitor] Respiratory 12 21 17 Rate Blood Pressure 120/73 156/89 156/89 O2 Sat by Pulse 93 92 92 Oximetry 01/18/19 01/18/19 01/18/19 03:01 03:15 03:21 Temperature Pulse Rate 93 H 90 89 Pulse Rate [ From Monitor] Respiratory 15 9 L 15 Rate Blood Pressure 186/93 186/93 186/93 O2 Sat by Pulse 93 96 93 Oximetry 01/18/19 01/18/19 03:31 04:00 Temperature Pulse Rate 75 Pulse Rate [ 81 From Monitor] Respiratory 7 L 14 Rate Blood Pressure 125/75 O2 Sat by Pulse 95 96 Oximetry ERWIN score - Erwin Score Age > 65: (0) No Aspirin use within the Past 7 Days: (0) No 3 or more CAD Risk Factors: (1) Yes 2 or more Angina events in past 24 hrs: (0) No Known CAD with more than 50% Stenosis: (0) No Elevated Cardiac Markers: (1) Yes ST Deviation Greater than 0.5mm: (0) No ERWIN Score: 2 ED Medical Decision Making - Lab Data Result diagrams: 01/19/19 12:37 01/19/19 08:29 Lab Results 01/17/19 01/17/19 01/17/19 Range/Units 16:11 16:31 16:31 WBC 8.5 (4.5-11.0) K/mm3 RBC 4.28 (3.65-5.03) M/mm3 Hgb 9.5 L (10.1-14.3) gm/dl Hct 30.9 (30.3-42.9) % MCV 72 L (79-97) fl MCH 22 L (28-32) pg MCHC 31 (30-34) % RDW 17.9 H (13.2-15.2) % Plt Count 271 (140-440) K/mm3 Lymph % (Auto) 24.9 (13.4-35.0) % [place] % (Auto) 6.5 (0.0-7.3) % Eos % (Auto) 0.4 (0.0-4.3) % Baso % (Auto) 0.6 (0.0-1.8) % Lymph # 2.1 (1.2-5.4) K/mm3 [place] # 0.6 (0.0-0.8) K/mm3 Eos # 0.0 (0.0-0.4) K/mm3 Baso # 0.0 (0.0-0.1) K/mm3 Seg Neutrophils % 67.6 (40.0-70.0) % Seg Neutrophils # 5.8 (1.8-7.7) K/mm3 VBG pH (7.320-7.420) Sodium 125 L (137-145) mmol/L Potassium 3.4 L (3.6-5.0) mmol/L Chloride 76.1 L (98-107) mmol/L Carbon Dioxide 26 (22-30) mmol/L Anion Gap 26 mmol/L BUN 71 H (7-17) mg/dL Creatinine 3.7 H (0.7-1.2) mg/dL Estimated GFR 16 ml/min BUN/Creatinine Ratio 19 % Glucose 732 H* (65-100) mg/dL POC Glucose > 500 H (70-105) Calcium 9.9 (8.4-10.2) mg/dL Total Bilirubin 0.30 (0.1-1.2) mg/dL AST 19 (5-40) units/L ALT 13 (7-56) units/L Alkaline Phosphatase 75 (35-129) units/L Troponin T 0.197 H* (0.00-0.029) ng/mL Total Protein 7.9 (6.3-8.2) g/dL Albumin 3.7 L (3.9-5) g/dL Albumin/Globulin Ratio 0.9 % Triglycerides 185 H (2-149) mg/dL Cholesterol 151 (50-199) mg/dL LDL Cholesterol Direct 78 (50-130) mg/dL HDL Cholesterol 34 L (40-59) mg/dL Cholesterol/HDL Ratio 4.44 % Lipase (13-60) units/L HCG, Qual (Negative) Urine Color (Yellow) Urine Turbidity (Clear) Urine pH (5.0-7.0) Ur Specific [place] (1.003-1.030) Urine Protein (Negative) mg/dL Urine Glucose (UA) (Negative) mg/dL Urine Ketones (Negative) mg/dL Urine Blood (Negative) Urine Nitrite (Negative) Urine Bilirubin (Negative) Urine Urobilinogen (<2.0) mg/dL Ur Leukocyte Esterase (Negative) Urine WBC (Auto) (0.0-6.0) /HPF Urine RBC (Auto) (0.0-6.0) /HPF U Epithel Cells (Auto) (0-13.0) /HPF Urine Bacteria (Auto) (Negative) /HPF Urine Mucus /HPF Urine HCG, Qual (Negative) Urine Opiates Screen Urine Methadone Screen Ur Barbiturates Screen Ur Phencyclidine Scrn Ur Amphetamines Screen U Benzodiazepines Scrn Urine Cocaine Screen U Marijuana (THC) Screen Drugs of Abuse Note 01/17/19 01/17/19 01/17/19 Range/Units 16:31 17:00 17:08 WBC (4.5-11.0) K/mm3 RBC (3.65-5.03) M/mm3 Hgb (10.1-14.3) gm/dl Hct (30.3-42.9) % MCV (79-97) fl MCH (28-32) pg MCHC (30-34) % RDW (13.2-15.2) % Plt Count (140-440) K/mm3 Lymph % (Auto) (13.4-35.0) % [place] % (Auto) (0.0-7.3) % Eos % (Auto) (0.0-4.3) % Baso % (Auto) (0.0-1.8) % Lymph # (1.2-5.4) K/mm3 [place] # (0.0-0.8) K/mm3 Eos # (0.0-0.4) K/mm3 Baso # (0.0-0.1) K/mm3 Seg Neutrophils % (40.0-70.0) % Seg Neutrophils # (1.8-7.7) K/mm3 VBG pH 7.422 H (7.320-7.420) Sodium (137-145) mmol/L Potassium (3.6-5.0) mmol/L Chloride (98-107) mmol/L Carbon Dioxide (22-30) mmol/L Anion Gap mmol/L BUN (7-17) mg/dL Creatinine (0.7-1.2) mg/dL Estimated GFR ml/min BUN/Creatinine Ratio % Glucose 729 H* (65-100) mg/dL POC Glucose (70-105) Calcium (8.4-10.2) mg/dL Total Bilirubin (0.1-1.2) mg/dL AST (5-40) units/L ALT (7-56) units/L Alkaline Phosphatase (35-129) units/L Troponin T (0.00-0.029) ng/mL Total Protein (6.3-8.2) g/dL Albumin (3.9-5) g/dL Albumin/Globulin Ratio % Triglycerides (2-149) mg/dL Cholesterol (50-199) mg/dL LDL Cholesterol Direct (50-130) mg/dL HDL Cholesterol (40-59) mg/dL Cholesterol/HDL Ratio % Lipase 28 (13-60) units/L HCG, Qual (Negative) Urine Color (Yellow) Urine Turbidity (Clear) Urine pH (5.0-7.0) Ur Specific [place] (1.003-1.030) Urine Protein (Negative) mg/dL Urine Glucose (UA) (Negative) mg/dL Urine Ketones (Negative) mg/dL Urine Blood (Negative) Urine Nitrite (Negative) Urine Bilirubin (Negative) Urine Urobilinogen (<2.0) mg/dL Ur Leukocyte Esterase (Negative) Urine WBC (Auto) (0.0-6.0) /HPF Urine RBC (Auto) (0.0-6.0) /HPF U Epithel Cells (Auto) (0-13.0) /HPF Urine Bacteria (Auto) (Negative) /HPF Urine Mucus /HPF Urine HCG, Qual (Negative) Urine Opiates Screen Urine Methadone Screen Ur Barbiturates Screen Ur Phencyclidine Scrn Ur Amphetamines Screen U Benzodiazepines Scrn Urine Cocaine Screen U Marijuana (THC) Screen Drugs of Abuse Note 01/17/19 01/17/19 01/17/19 Range/Units 17:20 19:32 21:39 WBC (4.5-11.0) K/mm3 RBC (3.65-5.03) M/mm3 Hgb (10.1-14.3) gm/dl Hct (30.3-42.9) % MCV (79-97) fl MCH (28-32) pg MCHC (30-34) % RDW (13.2-15.2) % Plt Count (140-440) K/mm3 Lymph % (Auto) (13.4-35.0) % [place] % (Auto) (0.0-7.3) % Eos % (Auto) (0.0-4.3) % Baso % (Auto) (0.0-1.8) % Lymph # (1.2-5.4) K/mm3 [place] # (0.0-0.8) K/mm3 Eos # (0.0-0.4) K/mm3 Baso # (0.0-0.1) K/mm3 Seg Neutrophils % (40.0-70.0) % Seg Neutrophils # (1.8-7.7) K/mm3 VBG pH (7.320-7.420) Sodium (137-145) mmol/L Potassium (3.6-5.0) mmol/L Chloride (98-107) mmol/L Carbon Dioxide (22-30) mmol/L Anion Gap mmol/L BUN (7-17) mg/dL Creatinine (0.7-1.2) mg/dL Estimated GFR ml/min BUN/Creatinine Ratio % Glucose (65-100) mg/dL POC Glucose (70-105) Calcium (8.4-10.2) mg/dL Total Bilirubin (0.1-1.2) mg/dL AST (5-40) units/L ALT (7-56) units/L Alkaline Phosphatase (35-129) units/L Troponin T 0.177 H* (0.00-0.029) ng/mL Total Protein (6.3-8.2) g/dL Albumin (3.9-5) g/dL Albumin/Globulin Ratio % Triglycerides (2-149) mg/dL Cholesterol (50-199) mg/dL LDL Cholesterol Direct (50-130) mg/dL HDL Cholesterol (40-59) mg/dL Cholesterol/HDL Ratio % Lipase (13-60) units/L HCG, Qual Negative (Negative) Urine Color (Yellow) Urine Turbidity (Clear) Urine pH (5.0-7.0) Ur Specific [place] (1.003-1.030) Urine Protein (Negative) mg/dL Urine Glucose (UA) (Negative) mg/dL Urine Ketones (Negative) mg/dL Urine Blood (Negative) Urine Nitrite (Negative) Urine Bilirubin (Negative) Urine Urobilinogen (<2.0) mg/dL Ur Leukocyte Esterase (Negative) Urine WBC (Auto) (0.0-6.0) /HPF Urine RBC (Auto) (0.0-6.0) /HPF U Epithel Cells (Auto) (0-13.0) /HPF Urine Bacteria (Auto) (Negative) /HPF Urine Mucus /HPF Urine HCG, Qual (Negative) Urine Opiates Screen Presumptive negative Urine Methadone Screen Presumptive negative Ur Barbiturates Screen Presumptive negative Ur Phencyclidine Scrn Presumptive negative Ur Amphetamines Screen Presumptive negative U Benzodiazepines Scrn Presumptive negative Urine Cocaine Screen Presumptive negative U Marijuana (THC) Screen Presumptive negative Drugs of Abuse Note Disclamer 01/17/19 01/17/19 Range/Units 21:39 21:39 WBC (4.5-11.0) K/mm3 RBC (3.65-5.03) M/mm3 Hgb (10.1-14.3) gm/dl Hct (30.3-42.9) % MCV (79-97) fl MCH (28-32) pg MCHC (30-34) % RDW (13.2-15.2) % Plt Count (140-440) K/mm3 Lymph % (Auto) (13.4-35.0) % [place] % (Auto) (0.0-7.3) % Eos % (Auto) (0.0-4.3) % Baso % (Auto) (0.0-1.8) % Lymph # (1.2-5.4) K/mm3 [place] # (0.0-0.8) K/mm3 Eos # (0.0-0.4) K/mm3 Baso # (0.0-0.1) K/mm3 Seg Neutrophils % (40.0-70.0) % Seg Neutrophils # (1.8-7.7) K/mm3 VBG pH (7.320-7.420) Sodium (137-145) mmol/L Potassium (3.6-5.0) mmol/L Chloride (98-107) mmol/L Carbon Dioxide (22-30) mmol/L Anion Gap mmol/L BUN (7-17) mg/dL Creatinine (0.7-1.2) mg/dL Estimated GFR ml/min BUN/Creatinine Ratio % Glucose (65-100) mg/dL POC Glucose (70-105) Calcium (8.4-10.2) mg/dL Total Bilirubin (0.1-1.2) mg/dL AST (5-40) units/L ALT (7-56) units/L Alkaline Phosphatase (35-129) units/L Troponin T (0.00-0.029) ng/mL Total Protein (6.3-8.2) g/dL Albumin (3.9-5) g/dL Albumin/Globulin Ratio % Triglycerides (2-149) mg/dL Cholesterol (50-199) mg/dL LDL Cholesterol Direct (50-130) mg/dL HDL Cholesterol (40-59) mg/dL Cholesterol/HDL Ratio % Lipase (13-60) units/L HCG, Qual (Negative) Urine Color Yellow (Yellow) Urine Turbidity Slightly-cloudy (Clear) Urine pH 6.0 (5.0-7.0) Ur Specific [place] 1.018 (1.003-1.030) Urine Protein 100 mg/dl (Negative) mg/dL Urine Glucose (UA) >=500 (Negative) mg/dL Urine Ketones Tr (Negative) mg/dL Urine Blood Sm (Negative) Urine Nitrite Neg (Negative) Urine Bilirubin Neg (Negative) Urine Urobilinogen < 2.0 (<2.0) mg/dL Ur Leukocyte Esterase Tr (Negative) Urine WBC (Auto) 4.0 (0.0-6.0) /HPF Urine RBC (Auto) 12.0 (0.0-6.0) /HPF U Epithel Cells (Auto) 19.0 H (0-13.0) /HPF Urine Bacteria (Auto) 1+ (Negative) /HPF Urine Mucus Few /HPF Urine HCG, Qual Negative (Negative) Urine Opiates Screen Urine Methadone Screen Ur Barbiturates Screen Ur Phencyclidine Scrn Ur Amphetamines Screen U Benzodiazepines Scrn Urine Cocaine Screen U Marijuana (THC) Screen Drugs of Abuse Note - EKG Data -: EKG Interpreted by Ak EKG shows normal: sinus rhythm, axis (qrs -29), QRS complexes (qrsd 91), ST-T waves (lvh, no stemi) Rate: normal (81) - EKG Data When compared to previous EKG there are: changes noted (lateral t waves more flat compared to previous) - Radiology Data Radiology results: report reviewed HISTORY: Chest Pain COMPARISONS: Prior chest x-rays are not available for review at the time of this dictation. FINDINGS: There is no evidence of infiltrate, pneumothorax or pleural fluid collection. The cardiomediastinal silhouette is normal in appearance. The bony structures are unremarkable. IMPRESSION: 1. No evidence of an acute pulmonary process. - Medical Decision Making pt with hyperglycemia without signs of DKA. Insulin initiated Positive acute on chronic renal insufficiency likely secondary to dehydration. Normal saline initiated Patient treated with Protonix, Dilaudid and Zofran for abdominal pain and nausea IV potassium for hypokalemia Urine collection pending at disposition Patient signed that she was not prior to CT since LMP was last month an d she is not sexually active. Urine hCG pending Patient will require admission to the hospital for further treatment. CT abdomen and pelvis pending, patient has a history of gastroparesis Patient has chronically elevated troponin. Aspirin provided. Repeat pending - Differential Diagnosis gastritis, IA, gastroparesis,, UTI, obstruction Critical Care Time: No Critical care attestation.: If time is entered above; I have spent that time in minutes in the direct care of this critically ill patient, excluding procedure time. ED Disposition Clinical Impression: Diabetic gastroparesis, Hyperglycemia, Acute on chronic renal failure, Hypokalemia, Chest pain, Elevated troponin Disposition: OP ADMIT IP TO THIS HOSP Is pt being admited?: Yes Condition: Stable Time of Disposition: 20:00 (patient signed out to Dr. True Stewart to follow CT, patient will be admitted)
[2019-01-17] MEDS ORDERED: NACL 0.9% 500 ML 500 ML IV ONE (17:16)
[2019-01-17] MEDS ORDERED: ZOFRAN IV ONE (17:16)
[2019-01-17] MEDS ORDERED: DILAUDID IV ONE ×2 (17:16→19:58)
[2019-01-17 17:23] LABS: Albumin 3.7 g/dL (3.9-5); Calcium 9.9 mg/dL (8.4-10.2)
[2019-01-17] MEDS ORDERED: HumuLIN R IV ONE ×2 (17:28→21:48)
--- NOTE | 2019-01-17 17:38 | XRay Report ---
PROCEDURE: XR CHEST ROUTINE 2V TECHNIQUE: AP and lateral views of the chest HISTORY: Chest Pain COMPARISONS: Prior chest x-rays are not available for review at the time of this dictation. FINDINGS: There is no evidence of infiltrate, pneumothorax or pleural fluid collection. The cardiomediastinal silhouette is normal in appearance. The bony structures are unremarkable. IMPRESSION: 1. No evidence of an acute pulmonary process. This document is electronically signed by Hawa Emery MD., January 17 2019 05:35:35 PM ET
[2019-01-17 17:47] LABS: Chol/HDL Ratio 4.44 %
[2019-01-17] MEDS ORDERED: NACL 0.9% 1000 ML 1,000 ML IV ONE (18:19)
[2019-01-17] MEDS ORDERED: ASPIRIN PO ONE (18:42)
[2019-01-17] MEDS ORDERED: PROTONIX IV ONE (18:43)
[2019-01-17] MEDS: KCL 10MEQ/100ML 10 MEQ/100 ML BAG IV SCH ×3 (19:00→23:14)
--- NOTE | 2019-01-17 20:57 | Cat Scan Report ---
PROCEDURE: CT ABDOMEN PELVIS WO CON TECHNIQUE: Computerized axial tomography of the abdomen and pelvis was performed without intravenous contrast. This study is performed without intravascular contrast material and its sensitivity for ab dominal and pelvic pathology, including neoplasms, inflammation, abscess, free fluid, thrombosis, art erial dissection and infarction, is reduced compared with a contrast enhanced study. CT DOSE LENGTH PRODUCT: mGycm HISTORY: upper pain, n,v COMPARISONS: None . FINDINGS: Liver, spleen, pancreas and adrenal glands are within normal limits. There are two small nonobstructi ve calculi in the left kidney measuring 2 mm. There is no obstructive uropathy. Urinary bladder is no rmally distended with normal outlines. Aorta is of normal caliber. There is no free fluid or free air . Status post cholecystectomy. Small bowel loops are within normal limits. Moderate degree of residua l stool is noted. Appendix is normal. Vertebral height is normal. IMPRESSION: Small nonobstructing left renal calculi Moderate degree of residual stool This document is electronically signed by Km Layton MD., January 17 2019 08:55:44 PM ET
[2019-01-17] MEDS ORDERED: HumuLIN R ONE (21:50)
[2019-01-17] MEDS ORDERED: D50W (25GM) Syringe IV PRN (21:50)
[2019-01-17] MEDS ORDERED: HEPARIN 10,000 UNITS/10 ML IV ONE ×2 (21:54→22:15)
[2019-01-17] MEDS ORDERED: TYLENOL PO PRN (21:56)
[2019-01-17] MEDS ORDERED: NACL 0.9% 1000 ML 1,000 ML IV SCH (22:00)
[2019-01-17] MEDS ORDERED: HEPARIN/ 0.45% NACL-25,000 UNIT/500 ML 25,000 UNIT/500 ML BAG IV SCH (22:00)
[2019-01-17 22:23] LABS: HCG Qualitative,Urine Negative (Negative)
[2019-01-17 22:35] LABS: Amphetamine Screen,Urine PRESUMPTIVE NEGATIVE; Benzodiazepines Screen,Urine PRESUMPTIVE NEGATIVE; Cannabinoid Screen,Urine PRESUMPTIVE NEGATIVE; Cocaine Screen,Urine PRESUMPTIVE NEGATIVE; Methadone Screen,Urine PRESUMPTIVE NEGATIVE; Opiate Screen,Urine PRESUMPTIVE NEGATIVE
[2019-01-17 22:39] LABS: Bacteria,Urine 1+ /HPF (Negative); Bilirubin,Urine NEG (Negative); Blood,Urine SM (Negative); Color,Urine Yellow (Yellow); Mucus,Urine FEW /HPF; Urobilinogen,Urine < 2.0 mg/dL (<2.0)
[2019-01-17] MEDS ORDERED: HEPARIN 10,000 UNITS/10 ML ONE (23:04)
[2019-01-17] MEDS ORDERED: HEPARIN/ 0.45% NACL-25,000 UNIT/500 ML 25,000 UNIT/500 ML BAG ONE (23:04)
[2019-01-17] MEDS ORDERED: KCL 10MEQ/100ML 10 MEQ/100 ML BAG IV ONE (23:06)
[2019-01-17] MEDS ORDERED: APRESOLINE ONE (23:25)
[2019-01-17] MEDS ORDERED: APRESOLINE IV ONE (23:35)
[2019-01-18 00:18] LABS: Hematocrit 30.4 % (30.3-42.9); Hemoglobin 9.7 gm/dl (10.1-14.3)
[2019-01-18 00:29] LABS: INR 1.05 (0.87-1.13)
[2019-01-18 00:31] LABS: Calcium 9.4 mg/dL (8.4-10.2)
[2019-01-18] MEDS ORDERED: ZOFRAN ONE (00:38)
[2019-01-18] MEDS ORDERED: DILAUDID ONE (00:38)
[2019-01-18] MEDS: ZOFRAN IV PRN ×3 (00:41→19:51)
[2019-01-18] MEDS: DILAUDID IV PRN ×6 (00:41→23:30)
[2019-01-18] MEDS ORDERED: NORMODYNE IV ONE ×2 (00:43→03:25)
[2019-01-18 01:00] LABS: Partial Thromboplastin Time 107.6 Sec. (24.2-36.6)
[2019-01-18 01:18] LABS: Creatine Kinase MB 7.7 ng/mL (0.0-4.0)
[2019-01-18] MEDS ORDERED: KCL 10MEQ/100ML 10 MEQ/100 ML BAG IV ONE (01:35)
[2019-01-18] MEDS: KCL 10MEQ/100ML 10 MEQ/100 ML BAG IV SCH ×6 (01:42→23:30)
[2019-01-18] MEDS ORDERED: NACL 0.9% 1000 ML 1,000 ML ONE (02:07)
[2019-01-18] MEDS: HumuLIN R 100 UNITS in NACL 0.9% 99 ML IV SCH ×2 (03:00→12:33)
[2019-01-18 03:21] LABS: Calcium 6.1 mg/dL (8.4-10.2)
--- NOTE | 2019-01-18 04:25 | History and Physical Report ---
CHIEF COMPLAINT: Abdominal pain. OTHER COMPLAINT: Includes chest pain, shortness of breath and weakness. HISTORY OF PRESENTING ILLNESS: The patient is a 48-year-old female, who presented to the hospital with complaint of abdominal pain, nausea, vomiting, generalized weakness and chest pain. The patient's symptoms started the day prior to presentation. The patient said that her blood glucose usually runs high in the low 200s and noted that her blood sugar has been high and complains of epigastric pain and nausea and vomiting. There is no history of dysuria. No history of fever or diarrhea. Also, the patient complained of chest heaviness associated with shortness of breath and presented for evaluation. PAST MEDICAL HISTORY: Pertinent for hypertension, cerebrovascular accident, congestive heart failure, diabetes mellitus, gastroparesis, neuropathy. PAST SURGICAL HISTORY: Pertinent for cholecystectomy, breast surgery, right great toe amputation, ectopic . FAMILY HISTORY: Family history is noncontributory. SOCIAL HISTORY: The patient does not smoke, does not drink alcohol, and does not use illicit drug. MEDICATIONS: The patient is on Flexeril 5 mg by mouth every 8 hours, gabapentin 800 mg by mouth 3 times daily, insulin Lantus 40 units subcutaneously every night, lisinopril 40 mg daily, Zofran 4 mg by mouth every 8 hours, simvastatin 40 mg by mouth daily, Janumet 50/500 one by mouth twice daily, tramadol 50 mg by mouth every 4 hours. ALLERGIES: THE PATIENT IS ALLERGIC TO ALBERT, MORPHINE, OXYCODONE, AND SHELLFISH. REVIEW OF SYSTEMS: CONSTITUTIONAL: There is no fever, no chills, no diaphoresis. HEENT: There is no headache or sore throat. CARDIOVASCULAR SYSTEM: Chest pain is present. No orthopnea. RESPIRATORY SYSTEM: Shortness of breath is present and there is no cough. GASTROINTESTINAL SYSTEM: Nausea and vomiting is present. Abdominal pain is present. There is no diarrhea and no constipation. NEUROLOGICAL SYSTEM: Numbness and tingling in the fingers are noted. There is no dizziness, no change in mental status. MUSCULOSKELETAL SYSTEM: There is no joint pain or swelling. DERMATOLOGICAL SYSTEM: There is no skin rash or itching. GENITOURINARY SYSTEM: There is no dysuria, hematuria, or flank pain. Rest of system review is normal. PHYSICAL EXAMINATION: GENERAL: At the time of exam, the patient was found to be alert, oriented x 3, and in mild distress due to abdominal pain. INITIAL VITAL SIGNS: Shows temperature of 97.8 degrees Fahrenheit, pulse of 90, respirations 18, blood pressure 172/78, O2 sat of 98% on room air. HEENT: Showed pupils to be equal, round, reactive to light and accommodating. Extraocular muscles are intact. NECK: Neck is supple with no JVD or carotid bruit. CARDIOVASCULAR SYSTEM: Showed normal first and second heart sounds with no gallops or murmurs. RESPIRATORY SYSTEM: Show good air entry on both sides of the lungs with no abnormal breath sounds. GASTROINTESTINAL SYSTEM: Show abdomen to be full, soft, nontender with no organomegaly or rigidity. NEUROLOGICAL: Neuro exam shows no focal deficit. MUSCULOSKELETAL SYSTEM: Show no joint swelling or tenderness. DERMATOLOGICAL SYSTEM: Show no skin rash. GENITOURINARY SYSTEM: Showing no costovertebral angle tenderness. PERTINENT LABORATORY AND IMAGING STUDIES: The patient had chest x-ray done that shows no evidence of acute pulmonary process. The patient had a CT of the abdomen and pelvis without contrast done that shows small nonobstructing left renal calculi with moderate degree of residual stool in the abdomen. Lab results; the patient's CBC showed normal white count, low hemoglobin of 9.5, normal hematocrit with low MCV of 72. The patient's CBC differential was unremarkable. Coagulation studies show elevated PT of 107.6 after the patient was started on heparin. The patient's venous blood gas pH is 7.42 and the patient's sodium level was low with a value of 125 with low potassium of 3.4, low chloride of 76.1 with normal CO2 of 26 and the patient's anion gap of 23 and elevated blood glucose level of 729 with high BUN of 71 and a high creatinine of 3.7. The patient's troponin levels, first level came back high with a value of 0.177. The patient's urinalysis shows trace urine leukocyte esterase with elevated urine epithelial cells. The patient's toxicology screen was unremarkable. ASSESSMENT AND PLAN: 1. Non ST-elevation myocardial infarction. 2. Hyperosmolar syndrome. 3. Chronic kidney disease. 4. Diabetic gastroparesis. PLAN OF CARE: 1. The patient will be admitted to ICU and continue IV insulin drip started in the Emergency Room. 2. The patient will be on IV heparin by protocol. 3. The patient will have cardiac enzymes involving troponin, total CK and CK-MB checked every 6 hours x 2 more levels. 4. The patient will have ICU consult with Dr. Johnson for IV insulin drip treatment and will also have Cardiology consult with Dr. Mackay for NSTEMI management. 5. The patient will have Nephrology consult with Dr. Kemp for chronic kidney disease. 6. The patient will have basic metabolic panel checked every 2 hours and every 8 hours for management of IV insulin titration. 7. The patient will be on IV normal saline running at 125 mL an hour. 8. The patient will be on IV Dilaudid 0.5 mg every 3 hours as needed for pain and will be on nitro paste half inch to anterior chest wall q.i.d. 9. The patient will be on IV Zofran 4 mg every 8 hours as needed for nausea and vomiting and will continue IV heparin per protocol. 10. The patient will be on aspirin 325 mg by mouth daily and Tylenol 650 mg by mouth every 4 hours as needed for fever and headache. JOB# [id number] OCN/NTS
[2019-01-18] MEDS: NITRO-BID 2% TP SCH ×4 (06:17→17:59)
[2019-01-18 08:13] LABS: Creatine Kinase MB 6.5 ng/mL (0.0-4.0)
[2019-01-18 08:15] LABS: Calcium 9.3 mg/dL (8.4-10.2)
[2019-01-18 09:02] LABS: BUN/Creatinine Ratio TNR; Blood Urea Nitrogen TNR mg/dL (7-17); Calcium TNR mg/dL (8.4-10.2); Hemolysis Index TNR
--- NOTE | 2019-01-18 09:43 | Consultation ---
History of Present Illness - Reason for Consult Consult date: 01/18/19 acute renal failure Medications and Allergies Allergies Allergy/AdvReac Type Severity Reaction Status Date / Time metoclopramide HCl Allergy Swelling Verified 01/17/19 15:50 [From Reglan] morphine Allergy Itching Verified 01/17/19 15:50 oxycodone HCl [From Percocet] Allergy Swelling Verified 01/17/19 15:50 shellfish derived Allergy Swelling Verified 01/17/19 15:50 Home Medications Medication Instructions Recorded Confirmed Last Taken Type Sitagliptin Phos/Metformin HCl 1 each PO BID 09/13/16 03/16/17 03/16/17 History [Janumet 50-500 mg Tablet] Gabapentin [Neurontin] 800 mg PO TID #90 tablet 03/19/17 Unknown Rx Insulin Glargine,Hum.rec.anlog 40 unit SQ QHS #30 insuln.pen 03/19/17 Unknown Rx [Lantus Solostar] Lisinopril [Zestril TAB] 40 mg PO DAILY #30 tablet 03/19/17 Unknown Rx Simvastatin [Zocor TAB] 40 mg PO DAILY #30 tablet 03/19/17 Unknown Rx traMADol [Ultram 50 MG tab] 50 mg PO Q4HR PRN #10 tablet 03/19/17 Unknown Rx Cyclobenzaprine HCl [Flexeril 5 MG 5 mg PO Q8HR PRN #12 tab 11/08/17 Unknown Rx TAB] Ondansetron [Zofran TAB] 4 mg PO Q8HR PRN #15 tablet 11/08/17 Unknown Rx Active Meds: Active Medications Acetaminophen (Tylenol) 650 mg PO Q4H PRN PRN Reason: Headache Aspirin (Aspirin) 325 mg PO QDAY [facility] Dextrose (D50w (25gm) Syringe) 0 ml IV PRN PRN PRN Reason: Hypoglycemia Hydromorphone HCl (Dilaudid) 0.5 mg IV Q3H PRN PRN Reason: Pain , Severe (7-10) Last Admin: 01/18/19 05:43 Dose: 0.5 mg Documented by: Sodium Chloride (Nacl 0.9% 1000 Ml) 1,000 mls @ 125 mls/hr IV DIRECT KE Last Admin: 01/18/19 02:32 Dose: 125 mls/hr Documented by: Insulin Human Regular 100 (units/ Sodium Chloride) 100 mls @ 1 mls/hr IV TITR [facility]; Protocol Last Titration: 01/18/19 09:30 Dose: 9 units/hr, 9 mls/hr Documented by: Potassium Chloride (Kcl 10meq/100ml) 10 meq in 100 mls @ 100 mls/hr IV Q1H [facility] Stop: 01/18/19 11:59 Potassium Chloride (Kcl 10meq/100ml) 10 meq in 100 mls @ 100 mls/hr IV Q1H [facility] Stop: 01/18/19 11:59 Nitroglycerin (Nitro-Bid 2%) 0.5 inch TP QIDNTG [facility]; Protocol Last Admin: 01/18/19 06:17 Dose: 0.5 inch Documented by: Ondansetron HCl (Zofran) 4 mg IV Q8H PRN PRN Reason: Nausea And Vomiting Last Admin: 01/18/19 05:43 Dose: 4 mg Documented by: Exam - Vital Signs Vital signs: Vital Signs Temp Pulse Resp BP Pulse Ox 97.8 F 90 18 172/78 98 01/17/19 15:50 01/17/19 15:50 01/17/19 15:50 01/17/19 15:50 01/17/19 15:50 Results - Lab Results 01/17/19 23:56 01/18/19 07:19 Most recent lab results Calcium TNR 01/18/19 07:19 Phosphorus 3.90 mg/dL (2.5-4.5) 01/17/19 23:56 Magnesium 2.40 mg/dL (1.7-2.3) H 01/17/19 23:56
[2019-01-18] MEDS ORDERED: KCL 10MEQ/100ML 10 MEQ/100 ML BAG IV SCH (10:00)
[2019-01-18] MEDS ORDERED: ASPIRIN PO SCH (10:00)
[2019-01-18] MEDS ORDERED: K-DUR PO ONE (10:30)
--- NOTE | 2019-01-18 10:37 | Consultation ---
History of Present Illness - Reason for Consult Consult date: 01/18/19 acute renal failure, chronic renal failure, hypokalemia - History of Present Illness The patient is a 48 YO female who is well known to our service with history significant for Type 2 DM, HTN, HLD, Obesity, Gastroparesis, Neuropathy, h/o CHF with normal EF, CVA and h/o cholecystectomy who presented to [facility] ER with complaints of abdominal pain, nausea, vomiting, generalized weakness, and chest pain that started the day prior to presentation. She didn't check her glucose since the symptoms started. Her glucose typically runs in the low 200s. On arrival her blood sugar was 732 with creatinine 3.7. Patient was admitted in the ICU for treatment of DKA. Nephrology was consulted for management of DEWAYNE. Past History Past Medical History: diabetes, heart failure, hypertension, hyperlipidemia, renal failure, other (neuropathy, obesity) Medications and Allergies Allergies Allergy/AdvReac Type Severity Reaction Status Date / Time metoclopramide HCl Allergy Swelling Verified 01/17/19 15:50 [From Reglan] morphine Allergy Itching Verified 01/17/19 15:50 oxycodone HCl [From Percocet] Allergy Swelling Verified 01/17/19 15:50 shellfish derived Allergy Swelling Verified 01/17/19 15:50 Home Medications Medication Instructions Recorded Confirmed Last Taken Type Sitagliptin Phos/Metformin HCl 1 each PO BID 09/13/16 03/16/17 03/16/17 History [Janumet 50-500 mg Tablet] Gabapentin [Neurontin] 800 mg PO TID #90 tablet 03/19/17 Unknown Rx Insulin Glargine,Hum.rec.anlog 40 unit SQ QHS #30 insuln.pen 03/19/17 Unknown Rx [Lantus Solostar] Lisinopril [Zestril TAB] 40 mg PO DAILY #30 tablet 03/19/17 Unknown Rx Simvastatin [Zocor TAB] 40 mg PO DAILY #30 tablet 03/19/17 Unknown Rx traMADol [Ultram 50 MG tab] 50 mg PO Q4HR PRN #10 tablet 03/19/17 Unknown Rx Cyclobenzaprine HCl [Flexeril 5 MG 5 mg PO Q8HR PRN #12 tab 11/08/17 Unknown Rx TAB] Ondansetron [Zofran TAB] 4 mg PO Q8HR PRN #15 tablet 11/08/17 Unknown Rx Active Meds: Active Medications Acetaminophen (Tylenol) 650 mg PO Q4H PRN PRN Reason: Headache Aspirin (Aspirin) 325 mg PO QDAY [facility] Last Admin: 01/18/19 10:21 Dose: 325 mg Documented by: Dextrose (D50w (25gm) Syringe) 0 ml IV PRN PRN PRN Reason: Hypoglycemia Hydromorphone HCl (Dilaudid) 0.5 mg IV Q3H PRN PRN Reason: Pain , Severe (7-10) Last Admin: 01/18/19 05:43 Dose: 0.5 mg Documented by: Sodium Chloride (Nacl 0.9% 1000 Ml) 1,000 mls @ 125 mls/hr IV DIRECT KE Last Admin: 01/18/19 02:32 Dose: 125 mls/hr Documented by: Insulin Human Regular 100 (units/ Sodium Chloride) 100 mls @ 1 mls/hr IV TITR [facility]; Protocol Last Titration: 01/18/19 10:24 Dose: 7 units/hr, 7 mls/hr Documented by: Potassium Chloride (Kcl 10meq/100ml) 10 meq in 100 mls @ 100 mls/hr IV Q1H [facility] Stop: 01/18/19 14:59 Nitroglycerin (Nitro-Bid 2%) 0.5 inch TP QIDNTG [facility]; Protocol Last Admin: 01/18/19 10:21 Dose: 0.5 inch Documented by: Ondansetron HCl (Zofran) 4 mg IV Q8H PRN PRN Reason: Nausea And Vomiting Last Admin: 01/18/19 05:43 Dose: 4 mg Documented by: Review of Systems Constitutional: no weight loss, no weight gain, no fever Breasts: deferred Cardiovascular: chest pain, high blood pressure, no orthopnea, no edema, no syncope, no lightheadedness, no shortness of breath, no leg edema Respiratory: no cough, no hemoptysis, no shortness of breath Gastrointestinal: abdominal pain, nausea, vomiting, no diarrhea, no melena Genitourinary Female: no dysuria, no hematuria Rectal: no bleeding Musculoskeletal: muscle weakness Integumentary: no rash, no wounds, no jaundice Neurological: weakness, no paralysis, no seizures, no syncope, no aphasia, no change in speech, no change in mentation, no confusion, no memory loss Psychiatric: no memory loss Endocrine: no weight change Exam - Vital Signs Vital signs: Vital Signs Temp Pulse Resp BP Pulse Ox 97.8 F 90 18 172/78 98 01/17/19 15:50 01/17/19 15:50 01/17/19 15:50 01/17/19 15:50 01/17/19 15:50 - General Appearance General appearance: well-developed, well-nourished, appears stated age, other (not in distress) EENT: ATNC, PERRL, mucous membranes dry, hearing intact, vision intact Neck: Present: neck supple, trachea midline Respiratory: Clear to Ascultation Heart: regular, S1S2, no murmurs Gastrointestinal: Present: normoactive bowel sounds, tenderness (mild diffuse), obese. Absent: distended Integumentary: no rash, warm and dry Neurologic: no focal deficit, no asterixis, alert and oriented x3 Musculoskeletal: Present: other (no edema) Results - Lab Results 01/17/19 23:56 01/18/19 15:28 Most recent lab results Calcium TNR 01/18/19 07:19 Phosphorus 3.90 mg/dL (2.5-4.5) 01/17/19 23:56 Magnesium 2.40 mg/dL (1.7-2.3) H 01/17/19 23:56 - Image Kidney/bladder ultrasound: other Assessment and Plan 1. Acute kidney injury: DEWAYNE superimposed on CKD stage 3 in the setting of DKA. CT abdomen was negative for hydronephrosis. Creatinine level is improving. Continue IV fluids. Avoid nephrotoxic agents. Meds dosage based on GFR. 2. FEN: Volume depletion, continue IV fluids. Hypokalemia, replete K. Monitor lytes. 3. DKA: On Insulin drip. 4. Anemia: Present on admission. 5. HTN.
--- NOTE | 2019-01-18 11:31 | XRay Report ---
PROCEDURE: XR CHEST 1V AP HISTORY: congestion COMPARISONS: 01/17/2019 FINDINGS: Heart is normal in size. Lungs are clear with no active air space consolidation, CHF changes, effusion or pneumothorax. Unremarkable osseous structures. IMPRESSION: Negative x-ray. This document is electronically signed by Kaitlyn Sanchez MD., January 18 2019 11:28:27 AM ET
[2019-01-18 12:02] LABS: Bacteria,Urine 1+ /HPF (Negative); Bilirubin,Urine NEG (Negative); Blood,Urine SM (Negative); Color,Urine Yellow (Yellow); Mucus,Urine FEW /HPF; Urobilinogen,Urine < 2.0 mg/dL (<2.0)
--- NOTE | 2019-01-18 12:07 | Consultation ---
History of Present Illness Consult date: 01/18/19 Consult reason: chest pain History of present illness: The patient is a 48-year-old woman with a history of diabetes, and diabetic g astroparesis. She presented to the hospital at this time with 2 days of protracted nausea, vomiting, which culminated in a complaint of epigastric and lower substernal pain. Her pain is nonexertional, and radiates from the mid abdomen and epigastric area. On examination, she has tenderness to palpation over the epigastric area, which reproduces her pain. Serial ECGs have shown a normal sinus rhythm, no ST or T wave abnormalities, normal ECG. In addition to gastroparesis nausea or vomiting and symptoms of reflux, she was found on presentation to have severe uncontrolled diabetes, blood sugar 729. She is currently also being managed for diabetic ketoacidosis. Past History Past Medical History: diabetes, hypertension, other (diabetic gastroparesis) Medications and Allergies Allergies Allergy/AdvReac Type Severity Reaction Status Date / Time metoclopramide HCl Allergy Swelling Verified 01/17/19 15:50 [From Reglan] morphine Allergy Itching Verified 01/17/19 15:50 oxycodone HCl [From Percocet] Allergy Swelling Verified 01/17/19 15:50 shellfish derived Allergy Swelling Verified 01/17/19 15:50 Home Medications Medication Instructions Recorded Confirmed Last Taken Type Sitagliptin Phos/Metformin HCl 1 each PO BID 09/13/16 03/16/17 03/16/17 History [Janumet 50-500 mg Tablet] Gabapentin [Neurontin] 800 mg PO TID #90 tablet 03/19/17 Unknown Rx Insulin Glargine,Hum.rec.anlog 40 unit SQ QHS #30 insuln.pen 03/19/17 Unknown Rx [Lantus Solostar] Lisinopril [Zestril TAB] 40 mg PO DAILY #30 tablet 03/19/17 Unknown Rx Simvastatin [Zocor TAB] 40 mg PO DAILY #30 tablet 03/19/17 Unknown Rx traMADol [Ultram 50 MG tab] 50 mg PO Q4HR PRN #10 tablet 03/19/17 Unknown Rx Cyclobenzaprine HCl [Flexeril 5 MG 5 mg PO Q8HR PRN #12 tab 11/08/17 Unknown Rx TAB] Ondansetron [Zofran TAB] 4 mg PO Q8HR PRN #15 tablet 11/08/17 Unknown Rx Active Meds: Active Medications Acetaminophen (Tylenol) 650 mg PO Q4H PRN PRN Reason: Headache Aspirin (Aspirin) 325 mg PO QDAY [facility] Last Admin: 01/18/19 10:21 Dose: 325 mg Documented by: Dextrose (D50w (25gm) Syringe) 0 ml IV PRN PRN PRN Reason: Hypoglycemia Hydromorphone HCl (Dilaudid) 0.5 mg IV Q3H PRN PRN Reason: Pain , Severe (7-10) Last Admin: 01/18/19 11:20 Dose: 0.5 mg Documented by: Sodium Chloride (Nacl 0.9% 1000 Ml) 1,000 mls @ 125 mls/hr IV DIRECT KE Last Admin: 01/18/19 02:32 Dose: 125 mls/hr Documented by: Insulin Human Regular 100 (units/ Sodium Chloride) 100 mls @ 1 mls/hr IV TITR [facility]; Protocol Last Titration: 01/18/19 11:17 Dose: 7 units/hr, 7 mls/hr Documented by: Potassium Chloride (Kcl 10meq/100ml) 10 meq in 100 mls @ 100 mls/hr IV Q1H [facility] Stop: 01/18/19 14:59 Last Admin: 01/18/19 11:20 Dose: 100 mls/hr Documented by: Nitroglycerin (Nitro-Bid 2%) 0.5 inch TP QIDNTG [facility]; Protocol Last Admin: 01/18/19 10:21 Dose: 0.5 inch Documented by: Ondansetron HCl (Zofran) 4 mg IV Q8H PRN PRN Reason: Nausea And Vomiting Last Admin: 01/18/19 05:43 Dose: 4 mg Documented by: Review of Systems Cardiovascular: chest pain, no orthopnea, no palpitations, no rapid/irregular heart beat, no edema, no syncope, no lightheadedness, no shortness of breath Physical Examination Vital Signs Temp Pulse Resp BP Pulse Ox 97.8 F 90 18 172/78 98 01/17/19 15:50 01/17/19 15:50 01/17/19 15:50 01/17/19 15:50 01/17/19 15:50 General appearance: no acute distress HEENT: Positive: PERRL Neck: Positive: neck supple Cardiac: Positive: Reg Rate and Rhythm Lungs: Positive: Decreased Breath Sounds Neuro: Positive: Grossly Intact Abdomen: Positive: Soft Female genitourinary: deferred Skin: Positive: Clear Extremities: Absent: edema Results 01/17/19 23:56 01/18/19 07:19 Cardiac Enzymes 01/17/19 01/18/19 01/18/19 Range/Units 16:31 00:07 07:19 AST 19 (5-40) units/L CK-MB (CK-2) 7.7 H 6.5 H (0.0-4.0) ng/mL Coagulation 01/17/19 01/18/19 Range/Units 23:56 01:49 PT 14.3 (12.2-14.9) Sec. INR 1.05 (0.87-1.13) APTT 107.6 H* > 240.0 H* (24.2-36.6) Sec. Lipids 01/17/19 Range/Units 16:31 Triglycerides 185 H (2-149) mg/dL Cholesterol 151 (50-199) mg/dL HDL Cholesterol 34 L (40-59) mg/dL Cholesterol/HDL Ratio 4.44 % CBC 01/17/19 01/17/19 Range/Units 16:31 23:56 WBC 8.5 (4.5-11.0) K/mm3 RBC 4.28 (3.65-5.03) M/mm3 Hgb 9.5 L 9.7 L (10.1-14.3) gm/dl Hct 30.9 30.4 (30.3-42.9) % Plt Count 271 283 (140-440) K/mm3 Lymph # 2.1 (1.2-5.4) K/mm3 [place] # 0.6 (0.0-0.8) K/mm3 Eos # 0.0 (0.0-0.4) K/mm3 Baso # 0.0 (0.0-0.1) K/mm3 Comprehensive Metabolic Panel 01/17/19 01/17/19 01/17/19 Range/Units 16:31 16:31 23:56 Sodium 125 L 131 L (137-145) mmol/L Potassium 3.4 L 3.0 L (3.6-5.0) mmol/L Chloride 76.1 L 80.7 L (98-107) mmol/L Carbon Dioxide 26 30 (22-30) mmol/L BUN 71 H 69 H (7-17) mg/dL Creatinine 3.7 H 3.2 H (0.7-1.2) mg/dL Glucose 732 H* 729 H* 520 H* (65-100) mg/dL Calcium 9.9 9.4 (8.4-10.2) mg/dL AST 19 (5-40) units/L ALT 13 (7-56) units/L Alkaline Phosphatase 75 (35-129) units/L Total Protein 7.9 (6.3-8.2) g/dL Albumin 3.7 L (3.9-5) g/dL 01/18/19 01/18/19 01/18/19 Range/Units 01:39 07:19 07:19 Sodium 126 L TNR 133 L D (137-145) mmol/L Potassium 5.0 D TNR 2.6 L* D (3.6-5.0) mmol/L Chloride 97.6 L TNR 88.0 L (98-107) mmol/L Carbon Dioxide 18 L D TNR 30 D (22-30) mmol/L BUN 51 H TNR 66 H (7-17) mg/dL Creatinine 2.2 H TNR 3.1 H (0.7-1.2) mg/dL Glucose 378 H TNR 422 H (65-100) mg/dL Calcium 6.1 L D TNR 9.3 D (8.4-10.2) mg/dL AST (5-40) units/L ALT (7-56) units/L Alkaline Phosphatase (35-129) units/L Total Protein (6.3-8.2) g/dL Albumin (3.9-5) g/dL EKG interpretations - Telemetry EKG Rhythm: Sinus Rhythm Assessment and Plan - Patient Problems (1) Chest pain Current Visit: Yes Status: Acute Plan to address problem: Chest pain is atypical, followed protracted bouts of vomiting from diabetic gastroparesis, and associated with epigastric and reproducible tenderness. Recommend treatment for gastroesophageal reflux, and diabetic gastroparesis. Predischarge, once her diabetes and gastroesophageal reflux optimally treated, we will order a myocardial perfusion study.
[2019-01-18 12:21] LABS: Creatinine,Urine 87.5 mg/dL (0.1-20.0)
[2019-01-18] MEDS ORDERED: KCL IV SCH (13:00)
[2019-01-18] MEDS ORDERED: D5W IV SCH (13:00)
[2019-01-18] MEDS ORDERED: NACL IV SCH (13:00)
--- NOTE | 2019-01-18 13:14 | Progress Note ---
Assessment and Plan Assessment and plan: Patient is a 48 yo woman with history of IDDM, gastroparesis admitted this morning to ICU for DKA needing IV insulin drip. -DKA: continue ivf, iv insulin, awaiting on repeat bmp, d/w Dr. Johnson -Hypokalemia: replete and recheck -ARF, suspect vasomotor nephropathy and ATN: treat with ivf, consulted renal, -NSTEMI: Cardiology is following. prolonged inpatient services 32 minutes History Interval history: Patient was seen and examined. Follow-up on current diagnosis. Overnight uneventful. Patient denies any chest pain, shortness breath, nausea/vomiting or severe headaches. Imaging, nursing note, chart, labs and old chart reviewed. Discussed with patient. Hospitalist Physical - Physical exam Narrative exam: Gen: WDWN, NAD, Awake, Alert, Orientated HEENT: NCAT, EOMI, PERRL, OP Clear Neck: supple, no adenopathy, no thyromegaly, no JVD CVS/Heart: RRR, normal S1S2, pulses present bilaterally Chest/Lungs: CTA B, Symmetrical chest expansion, good air entry bilaterally GI/Abdomen: soft, NTND, good bowel sounds, no guarding or rebound /Bladder: no suprapubic tenderness, no CVA or paraspinal tenderness Extermity/Skin: no c/c/e, no obvious rash MSK: FROM x 4 Neuro: CN 2-12 grossly intact, no new focal deficits Psych: calm - Constitutional Vitals: Temp Pulse Resp BP Pulse Ox 97.8 F 68 11 L 144/79 98 01/17/19 15:50 01/18/19 11:31 01/18/19 11:31 01/18/19 11:31 01/18/19 11:31 General appearance: Present: no acute distress Results - Labs CBC & Chem 7: 01/17/19 23:56 01/18/19 21:15 Labs: Laboratory Last Values WBC 8.5 K/mm3 (4.5-11.0) 01/17/19 16:31 RBC 4.28 M/mm3 (3.65-5.03) 01/17/19 16:31 Hgb 9.7 gm/dl (10.1-14.3) L 01/17/19 23:56 Hct 30.4 % (30.3-42.9) 01/17/19 23:56 MCV 72 fl (79-97) L 01/17/19 16:31 MCH 22 pg (28-32) L 01/17/19 16:31 MCHC 31 % (30-34) 01/17/19 16:31 RDW 17.9 % (13.2-15.2) H 01/17/19 16:31 Plt Count 283 K/mm3 (140-440) 01/17/19 23:56 Lymph % (Auto) 24.9 % (13.4-35.0) 01/17/19 16:31 [place] % (Auto) 6.5 % (0.0-7.3) 01/17/19 16:31 Eos % (Auto) 0.4 % (0.0-4.3) 01/17/19 16:31 Baso % (Auto) 0.6 % (0.0-1.8) 01/17/19 16:31 Lymph # 2.1 K/mm3 (1.2-5.4) 01/17/19 16:31 [place] # 0.6 K/mm3 (0.0-0.8) 01/17/19 16:31 Eos # 0.0 K/mm3 (0.0-0.4) 01/17/19 16:31 Baso # 0.0 K/mm3 (0.0-0.1) 01/17/19 16:31 Seg Neutrophils % 67.6 % (40.0-70.0) 01/17/19 16:31 Seg Neutrophils # 5.8 K/mm3 (1.8-7.7) 01/17/19 16:31 PT 14.3 Sec. (12.2-14.9) 01/17/19 23:56 INR 1.05 (0.87-1.13) 01/17/19 23:56 APTT > 240.0 Sec. (24.2-36.6) H* 01/18/19 01:49 Heparin Anti-Xa Level 0.10 U.I./ml (0.3-0.7) L 01/18/19 07:19 VBG pH 7.422 (7.320-7.420) H 01/17/19 17:08 Sodium TNR 01/18/19 07:19 Potassium TNR 01/18/19 07:19 Chloride TNR 01/18/19 07:19 Carbon Dioxide TNR 01/18/19 07:19 Anion Gap TNR 01/18/19 07:19 BUN TNR 01/18/19 07:19 Creatinine TNR 01/18/19 07:19 Estimated GFR TNR 01/18/19 07:19 BUN/Creatinine Ratio TNR 01/18/19 07:19 Glucose TNR 01/18/19 07:19 POC Glucose 233 (70-105) H 01/18/19 12:19 Calcium TNR 01/18/19 07:19 Phosphorus 3.90 mg/dL (2.5-4.5) 01/17/19 23:56 Magnesium 2.40 mg/dL (1.7-2.3) H 01/17/19 23:56 Total Bilirubin 0.30 mg/dL (0.1-1.2) 01/17/19 16:31 AST 19 units/L (5-40) 01/17/19 16:31 ALT 13 units/L (7-56) 01/17/19 16:31 Alkaline Phosphatase 75 units/L (35-129) 01/17/19 16:31 Total Creatine Kinase 294 units/L (30-135) H 01/18/19 07:19 CK-MB (CK-2) 6.5 ng/mL (0.0-4.0) H 01/18/19 07:19 CK-MB (CK-2) Rel Index 2.2 (0-4) 01/18/19 07:19 Troponin T 0.161 ng/mL (0.00-0.029) H* 01/18/19 07:19 Total Protein 7.9 g/dL (6.3-8.2) 01/17/19 16:31 Albumin 3.7 g/dL (3.9-5) L 01/17/19 16:31 Albumin/Globulin Ratio 0.9 % 01/17/19 16:31 Triglycerides 185 mg/dL (2-149) H 01/17/19 16:31 Cholesterol 151 mg/dL (50-199) 01/17/19 16:31 LDL Cholesterol Direct 78 mg/dL (50-130) 01/17/19 16:31 HDL Cholesterol 34 mg/dL (40-59) L 01/17/19 16:31 Cholesterol/HDL Ratio 4.44 % 01/17/19 16:31 Lipase 28 units/L (13-60) 01/17/19 17:00 HCG, Qual Negative (Negative) 01/17/19 17:20 Urine Color Yellow (Yellow) 01/18/19 09:44 Urine Turbidity Slightly-cloudy (Clear) 01/18/19 09:44 Urine pH 5.0 (5.0-7.0) 01/18/19 09:44 Ur Specific [place] 1.015 (1.003-1.030) 01/18/19 09:44 Urine Protein 100 mg/dl mg/dL (Negative) 01/18/19 09:44 Urine Glucose (UA) >=500 mg/dL (Negative) 01/18/19 09:44 Urine Ketones Tr mg/dL (Negative) 01/18/19 09:44 Urine Blood Sm (Negative) 01/18/19 09:44 Urine Nitrite Neg (Negative) 01/18/19 09:44 Urine Bilirubin Neg (Negative) 01/18/19 09:44 Urine Urobilinogen < 2.0 mg/dL (<2.0) 01/18/19 09:44 Ur Leukocyte Esterase Sm (Negative) 01/18/19 09:44 Urine WBC (Auto) 10.0 /HPF (0.0-6.0) H 01/18/19 09:44 Urine RBC (Auto) 4.0 /HPF (0.0-6.0) 01/18/19 09:44 U Epithel Cells (Auto) 11.0 /HPF (0-13.0) 01/18/19 09:44 Urine Bacteria (Auto) 1+ /HPF (Negative) 01/18/19 09:44 Urine Mucus Few /HPF 01/18/19 09:44 Urine Creatinine 87.5 mg/dL (0.1-20.0) H 01/18/19 09:44 Urine Sodium 25 mmol/L 01/18/19 09:44 Urine HCG, Qual Negative (Negative) 01/17/19 21:39 Urine Opiates Screen Presumptive negative 01/17/19 21:39 Urine Methadone Screen Presumptive negative 01/17/19 21:39 Ur Barbiturates Screen Presumptive negative 01/17/19 21:39 Ur Phencyclidine Scrn Presumptive negative 01/17/19 21:39 Ur Amphetamines Screen Presumptive negative 01/17/19 21:39 U Benzodiazepines Scrn Presumptive negative 01/17/19 21:39 Urine Cocaine Screen Presumptive negative 01/17/19 21:39 U Marijuana (THC) Screen Presumptive negative 01/17/19 21:39 Drugs of Abuse Note Disclamer 01/17/19 21:39
--- NOTE | 2019-01-18 13:18 | Consultation ---
History of Present Illness - Reason for Consult Consult date: 01/18/19 DKA Requesting physician: MICKI HUANG - History of Present Illness 48 y/o female with known diabetes presents with atypical chest pain. Found to be in DKA so started on IVF's and insulin drip and transitioned to the unit. Per patient she has been diligent with her home diabetic regimen of traceba 40 units at night. Plus the 15 units of regular insulin with each meal (TID) and oral hypoglycemics. She denies any sick contacts but has not had an appetite for several days. She denies fever but may have had some shaking chills. She endorses some burning with urination since arrival to hospital but none prior. UA has trace to small leuk esterace Past History Past Medical History: diabetes, hypertension, other (diabetic gastroparesis) Medications and Allergies Allergies Allergy/AdvReac Type Severity Reaction Status Date / Time metoclopramide HCl Allergy Swelling Verified 01/17/19 15:50 [From Reglan] morphine Allergy Itching Verified 01/17/19 15:50 oxycodone HCl [From Percocet] Allergy Swelling Verified 01/17/19 15:50 shellfish derived Allergy Swelling Verified 01/17/19 15:50 Home Medications Medication Instructions Recorded Confirmed Last Taken Type Sitagliptin Phos/Metformin HCl 1 each PO BID 09/13/16 03/16/17 03/16/17 History [Janumet 50-500 mg Tablet] Gabapentin [Neurontin] 800 mg PO TID #90 tablet 03/19/17 Unknown Rx Insulin Glargine,Hum.rec.anlog 40 unit SQ QHS #30 insuln.pen 03/19/17 Unknown Rx [Lantus Solostar] Lisinopril [Zestril TAB] 40 mg PO DAILY #30 tablet 03/19/17 Unknown Rx Simvastatin [Zocor TAB] 40 mg PO DAILY #30 tablet 03/19/17 Unknown Rx traMADol [Ultram 50 MG tab] 50 mg PO Q4HR PRN #10 tablet 03/19/17 Unknown Rx Cyclobenzaprine HCl [Flexeril 5 MG 5 mg PO Q8HR PRN #12 tab 11/08/17 Unknown Rx TAB] Ondansetron [Zofran TAB] 4 mg PO Q8HR PRN #15 tablet 11/08/17 Unknown Rx Active Meds: Active Medications Acetaminophen (Tylenol) 650 mg PO Q4H PRN PRN Reason: Headache Aspirin (Aspirin) 325 mg PO QDAY KE Last Admin: 01/18/19 10:21 Dose: 325 mg Documented by: Dextrose (D50w (25gm) Syringe) 0 ml IV PRN PRN PRN Reason: Hypoglycemia Hydromorphone HCl (Dilaudid) 0.5 mg IV Q3H PRN PRN Reason: Pain , Severe (7-10) Last Admin: 01/18/19 11:20 Dose: 0.5 mg Documented by: Sodium Chloride (Nacl 0.9% 1000 Ml) 1,000 mls @ 125 mls/hr IV DIRECT KE Last Admin: 01/18/19 02:32 Dose: 125 mls/hr Documented by: Insulin Human Regular 100 (units/ Sodium Chloride) 100 mls @ 1 mls/hr IV TITR KE; Protocol Last Admin: 01/18/19 12:33 Dose: 5 units/hr, 5 mls/hr Documented by: Potassium Chloride (Kcl 10meq/100ml) 10 meq in 100 mls @ 100 mls/hr IV Q1H KE Stop: 01/18/19 14:59 Last Admin: 01/18/19 13:01 Dose: 100 mls/hr Documented by: Nitroglycerin (Nitro-Bid 2%) 0.5 inch TP QIDNTG KE; Protocol Last Admin: 01/18/19 10:21 Dose: 0.5 inch Documented by: Ondansetron HCl (Zofran) 4 mg IV Q8H PRN PRN Reason: Nausea And Vomiting Last Admin: 01/18/19 05:43 Dose: 4 mg Documented by: Potassium Chloride/Dextrose/Sod Cl (D5w/0.45% Nacl/Kcl 40 Meq) 40 meq IV DIRECT KE Review of Systems All systems: negative Exam - Constitutional Vitals: Temp Pulse Resp BP Pulse Ox 97.8 F 68 11 L 144/79 98 01/17/19 15:50 01/18/19 11:31 01/18/19 11:31 01/18/19 11:31 01/18/19 11:31 General appearance: Present: no acute distress, well-nourished, obese - EENT Eyes: Present: PERRL, EOM intact ENT: hearing intact, clear oral mucosa - Neck Neck: Present: supple, normal ROM - Respiratory Respiratory effort: normal Respiratory: bilateral: CTA - Cardiovascular Rhythm: regular Heart Sounds: Present: S1 & S2 - Extremities Extremities: no ischemia, pulses intact - Abdominal General gastrointestinal: Present: soft Results - Labs CBC & Chem 7: 01/17/19 23:56 01/18/19 07:19 Labs: Abnormal lab results 01/17/19 01/17/19 01/17/19 Range/Units 16:11 16:31 16:31 Hgb 9.5 L (10.1-14.3) gm/dl MCV 72 L (79-97) fl MCH 22 L (28-32) pg RDW 17.9 H (13.2-15.2) % APTT (24.2-36.6) Sec. Heparin Anti-Xa Level (0.3-0.7) U.I./ml VBG pH (7.320-7.420) Sodium 125 L (137-145) mmol/L Potassium 3.4 L (3.6-5.0) mmol/L Chloride 76.1 L (98-107) mmol/L Carbon Dioxide (22-30) mmol/L BUN 71 H (7-17) mg/dL Creatinine 3.7 H (0.7-1.2) mg/dL Glucose 732 H* (65-100) mg/dL POC Glucose > 500 H (70-105) Calcium (8.4-10.2) mg/dL Magnesium (1.7-2.3) mg/dL Total Creatine Kinase (30-135) units/L CK-MB (CK-2) (0.0-4.0) ng/mL Troponin T 0.197 H* (0.00-0.029) ng/mL Albumin 3.7 L (3.9-5) g/dL Triglycerides 185 H (2-149) mg/dL HDL Cholesterol 34 L (40-59) mg/dL Urine WBC (Auto) (0.0-6.0) /HPF U Epithel Cells (Auto) (0-13.0) /HPF Urine Creatinine (0.1-20.0) mg/dL 01/17/19 01/17/19 01/17/19 Range/Units 16:31 17:08 19:32 Hgb (10.1-14.3) gm/dl MCV (79-97) fl MCH (28-32) pg RDW (13.2-15.2) % APTT (24.2-36.6) Sec. Heparin Anti-Xa Level (0.3-0.7) U.I./ml VBG pH 7.422 H (7.320-7.420) Sodium (137-145) mmol/L Potassium (3.6-5.0) mmol/L Chloride (98-107) mmol/L Carbon Dioxide (22-30) mmol/L BUN (7-17) mg/dL Creatinine (0.7-1.2) mg/dL Glucose 729 H* (65-100) mg/dL POC Glucose (70-105) Calcium (8.4-10.2) mg/dL Magnesium (1.7-2.3) mg/dL Total Creatine Kinase (30-135) units/L CK-MB (CK-2) (0.0-4.0) ng/mL Troponin T 0.177 H* (0.00-0.029) ng/mL Albumin (3.9-5) g/dL Triglycerides (2-149) mg/dL HDL Cholesterol (40-59) mg/dL Urine WBC (Auto) (0.0-6.0) /HPF U Epithel Cells (Auto) (0-13.0) /HPF Urine Creatinine (0.1-20.0) mg/dL 01/17/19 01/17/19 01/17/19 Range/Units 21:39 21:49 23:25 Hgb (10.1-14.3) gm/dl MCV (79-97) fl MCH (28-32) pg RDW (13.2-15.2) % APTT (24.2-36.6) Sec. Heparin Anti-Xa Level (0.3-0.7) U.I./ml VBG pH (7.320-7.420) Sodium (137-145) mmol/L Potassium (3.6-5.0) mmol/L Chloride (98-107) mmol/L Carbon Dioxide (22-30) mmol/L BUN (7-17) mg/dL Creatinine (0.7-1.2) mg/dL Glucose (65-100) mg/dL POC Glucose 447 H 437 H (70-105) Calcium (8.4-10.2) mg/dL Magnesium (1.7-2.3) mg/dL Total Creatine Kinase (30-135) units/L CK-MB (CK-2) (0.0-4.0) ng/mL Troponin T (0.00-0.029) ng/mL Albumin (3.9-5) g/dL Triglycerides (2-149) mg/dL HDL Cholesterol (40-59) mg/dL Urine WBC (Auto) (0.0-6.0) /HPF U Epithel Cells (Auto) 19.0 H (0-13.0) /HPF Urine Creatinine (0.1-20.0) mg/dL 01/17/19 01/17/19 01/17/19 Range/Units 23:56 23:56 23:56 Hgb 9.7 L (10.1-14.3) gm/dl MCV (79-97) fl MCH (28-32) pg RDW (13.2-15.2) % APTT 107.6 H* (24.2-36.6) Sec. Heparin Anti-Xa Level (0.3-0.7) U.I./ml VBG pH (7.320-7.420) Sodium (137-145) mmol/L Potassium (3.6-5.0) mmol/L Chloride (98-107) mmol/L Carbon Dioxide (22-30) mmol/L BUN (7-17) mg/dL Creatinine (0.7-1.2) mg/dL Glucose (65-100) mg/dL POC Glucose (70-105) Calcium (8.4-10.2) mg/dL Magnesium 2.40 H (1.7-2.3) mg/dL Total Creatine Kinase (30-135) units/L CK-MB (CK-2) (0.0-4.0) ng/mL Troponin T (0.00-0.029) ng/mL Albumin (3.9-5) g/dL Triglycerides (2-149) mg/dL HDL Cholesterol (40-59) mg/dL Urine WBC (Auto) (0.0-6.0) /HPF U Epithel Cells (Auto) (0-13.0) /HPF Urine Creatinine (0.1-20.0) mg/dL 01/17/19 01/18/19 01/18/19 Range/Units 23:56 00:07 01:39 Hgb (10.1-14.3) gm/dl MCV (79-97) fl MCH (28-32) pg RDW (13.2-15.2) % APTT (24.2-36.6) Sec. Heparin Anti-Xa Level (0.3-0.7) U.I./ml VBG pH (7.320-7.420) Sodium 131 L 126 L (137-145) mmol/L Potassium 3.0 L (3.6-5.0) mmol/L Chloride 80.7 L 97.6 L (98-107) mmol/L Carbon Dioxide 18 L D (22-30) mmol/L BUN 69 H 51 H (7-17) mg/dL Creatinine 3.2 H 2.2 H (0.7-1.2) mg/dL Glucose 520 H* 378 H (65-100) mg/dL POC Glucose (70-105) Calcium 6.1 L D (8.4-10.2) mg/dL Magnesium (1.7-2.3) mg/dL Total Creatine Kinase 359 H (30-135) units/L CK-MB (CK-2) 7.7 H (0.0-4.0) ng/mL Troponin T 0.187 H* (0.00-0.029) ng/mL Albumin (3.9-5) g/dL Triglycerides (2-149) mg/dL HDL Cholesterol (40-59) mg/dL Urine WBC (Auto) (0.0-6.0) /HPF U Epithel Cells (Auto) (0-13.0) /HPF Urine Creatinine (0.1-20.0) mg/dL 01/18/19 01/18/19 01/18/19 Range/Units 01:49 04:10 06:08 Hgb (10.1-14.3) gm/dl MCV (79-97) fl MCH (28-32) pg RDW (13.2-15.2) % APTT > 240.0 H* (24.2-36.6) Sec. Heparin Anti-Xa Level (0.3-0.7) U.I./ml VBG pH (7.320-7.420) Sodium (137-145) mmol/L Potassium (3.6-5.0) mmol/L Chloride (98-107) mmol/L Carbon Dioxide (22-30) mmol/L BUN (7-17) mg/dL Creatinine (0.7-1.2) mg/dL Glucose (65-100) mg/dL POC Glucose 418 H 456 H (70-105) Calcium (8.4-10.2) mg/dL Magnesium (1.7-2.3) mg/dL Total Creatine Kinase (30-135) units/L CK-MB (CK-2) (0.0-4.0) ng/mL Troponin T (0.00-0.029) ng/mL Albumin (3.9-5) g/dL Triglycerides (2-149) mg/dL HDL Cholesterol (40-59) mg/dL Urine WBC (Auto) (0.0-6.0) /HPF U Epithel Cells (Auto) (0-13.0) /HPF Urine Creatinine (0.1-20.0) mg/dL 01/18/19 01/18/19 01/18/19 Range/Units 07:19 07:19 07:36 Hgb (10.1-14.3) gm/dl MCV (79-97) fl MCH (28-32) pg RDW (13.2-15.2) % APTT (24.2-36.6) Sec. Heparin Anti-Xa Level 0.10 L (0.3-0.7) U.I./ml VBG pH (7.320-7.420) Sodium 133 L D (137-145) mmol/L Potassium 2.6 L* D (3.6-5.0) mmol/L Chloride 88.0 L (98-107) mmol/L Carbon Dioxide (22-30) mmol/L BUN 66 H (7-17) mg/dL Creatinine 3.1 H (0.7-1.2) mg/dL Glucose 422 H (65-100) mg/dL POC Glucose 422 H (70-105) Calcium (8.4-10.2) mg/dL Magnesium (1.7-2.3) mg/dL Total Creatine Kinase 294 H (30-135) units/L CK-MB (CK-2) 6.5 H (0.0-4.0) ng/mL Troponin T 0.161 H* (0.00-0.029) ng/mL Albumin (3.9-5) g/dL Triglycerides (2-149) mg/dL HDL Cholesterol (40-59) mg/dL Urine WBC (Auto) (0.0-6.0) /HPF U Epithel Cells (Auto) (0-13.0) /HPF Urine Creatinine (0.1-20.0) mg/dL 01/18/19 01/18/19 01/18/19 Range/Units 08:12 09:12 09:44 Hgb (10.1-14.3) gm/dl MCV (79-97) fl MCH (28-32) pg RDW (13.2-15.2) % APTT (24.2-36.6) Sec. Heparin Anti-Xa Level (0.3-0.7) U.I./ml VBG pH (7.320-7.420) Sodium (137-145) mmol/L Potassium (3.6-5.0) mmol/L Chloride (98-107) mmol/L Carbon Dioxide (22-30) mmol/L BUN (7-17) mg/dL Creatinine (0.7-1.2) mg/dL Glucose (65-100) mg/dL POC Glucose 339 H 332 H (70-105) Calcium (8.4-10.2) mg/dL Magnesium (1.7-2.3) mg/dL Total Creatine Kinase (30-135) units/L CK-MB (CK-2) (0.0-4.0) ng/mL Troponin T (0.00-0.029) ng/mL Albumin (3.9-5) g/dL Triglycerides (2-149) mg/dL HDL Cholesterol (40-59) mg/dL Urine WBC (Auto) 10.0 H (0.0-6.0) /HPF U Epithel Cells (Auto) (0-13.0) /HPF Urine Creatinine (0.1-20.0) mg/dL 01/18/19 01/18/19 01/18/19 Range/Units 09:44 10:22 11:12 Hgb (10.1-14.3) gm/dl MCV (79-97) fl MCH (28-32) pg RDW (13.2-15.2) % APTT (24.2-36.6) Sec. Heparin Anti-Xa Level (0.3-0.7) U.I./ml VBG pH (7.320-7.420) Sodium (137-145) mmol/L Potassium (3.6-5.0) mmol/L Chloride (98-107) mmol/L Carbon Dioxide (22-30) mmol/L BUN (7-17) mg/dL Creatinine (0.7-1.2) mg/dL Glucose (65-100) mg/dL POC Glucose 284 H 283 H (70-105) Calcium (8.4-10.2) mg/dL Magnesium (1.7-2.3) mg/dL Total Creatine Kinase (30-135) units/L CK-MB (CK-2) (0.0-4.0) ng/mL Troponin T (0.00-0.029) ng/mL Albumin (3.9-5) g/dL Triglycerides (2-149) mg/dL HDL Cholesterol (40-59) mg/dL Urine WBC (Auto) (0.0-6.0) /HPF U Epithel Cells (Auto) (0-13.0) /HPF Urine Creatinine 87.5 H (0.1-20.0) mg/dL / Range/Units 12:19 Hgb (10.1-14.3) gm/dl MCV (79-97) fl MCH (28-32) pg RDW (13.2-15.2) % APTT (24.2-36.6) Sec. Heparin Anti-Xa Level (0.3-0.7) U.I./ml VBG pH (7.320-7.420) Sodium (137-145) mmol/L Potassium (3.6-5.0) mmol/L Chloride (98-107) mmol/L Carbon Dioxide (22-30) mmol/L BUN (7-17) mg/dL Creatinine (0.7-1.2) mg/dL Glucose (65-100) mg/dL POC Glucose 233 H (70-105) Calcium (8.4-10.2) mg/dL Magnesium (1.7-2.3) mg/dL Total Creatine Kinase (30-135) units/L CK-MB (CK-2) (0.0-4.0) ng/mL Troponin T (0.00-0.029) ng/mL Albumin (3.9-5) g/dL Triglycerides (2-149) mg/dL HDL Cholesterol (40-59) mg/dL Urine WBC (Auto) (0.0-6.0) /HPF U Epithel Cells (Auto) (0-13.0) /HPF Urine Creatinine (0.1-20.0) mg/dL - Imaging and Cardiology Chest x-ray: image reviewed (clear) Assessment and Plan 48 y/o female with DKA, likely from volume depletion 1. Await repeat chemistry 2. If GAP remains closed then start long acting insulin and attempt to feed patient 3. Can stop drip once gap closes 4. Give leuk esterace seen in UA, and DKA present, reasonable to treat for UTI 5. Will need A1c checked CCT 31 minutes.
[2019-01-18 13:51] LABS: Calcium 9.3 mg/dL (8.4-10.2)
[2019-01-18] MEDS ORDERED: D5W/0.45% NACL/KCL 40 MEQ 40 MEQ/1,000 ML BAG IV SCH (14:00)
[2019-01-18 16:31] LABS: Calcium 9.3 mg/dL (8.4-10.2)
[2019-01-18 22:04] LABS: Calcium 9.3 mg/dL (8.4-10.2)
[2019-01-19] MEDS: KCL 10MEQ/100ML 10 MEQ/100 ML BAG IV SCH ×2 (01:59→03:45)
[2019-01-19] MEDS: NITRO-BID 2% TP SCH (05:13)
[2019-01-19] MEDS: DILAUDID IV PRN ×4 (05:14→21:58)
[2019-01-19] MEDS ORDERED: D50W (25GM) Syringe IV PRN (07:51)
--- NOTE | 2019-01-19 08:02 | Progress Note ---
Assessment and Plan Assessment and plan: Patient is a 48 yo woman with history of type 2 IDDM, hypertension, gastroparesis, dyslipidemia, DM neuropathy, CHF with normal EF and TIA (denies CVA) who [facility] with abdominal pains, nausea, vomiting, generalized weakness, and chest pain. She was admitted to ICU for DKA needing IV insulin drip. -DKA, anion gap closed: transition to sq Insulin -Hypokalemia: replete and recheck -ARF, suspect vasomotor nephropathy and ATN with suspected CKD 3: treat with ivf, consulted renal, monitor bmp closely -Acute metabolic encephalopathy, poa, much better now (she admits to bein "out of it", she didn't remember me from yesterday) with correction of DKA -Elevated troponin: Cardiology following. Heparin drip stopped -Hypertension urgency: started Cardiac diet, treat with iv hydralazine -Microcytic Anemia, h/h steady: monitor cbc closely, investigate if worse, she needs outpatient workup. -Home med done and I reviewed with patient -DVT/GI prophy reviewed transfer out of ICU if ok with CCM CCT 34 minutes History Interval history: Patient was seen and examined. Follow-up on current diagnosis of DKA. Overnight uneventful. Patient denies any chest pain, shortness breath, nausea/vomiting or severe headaches. Imaging, nursing note, chart, labs and old chart reviewed. Discussed with patient. Hospitalist Physical - Physical exam Narrative exam: Gen: WDWN, NAD, Awake, Alert, Orientated HEENT: NCAT, EOMI, PERRL, OP Clear Neck: supple, no adenopathy, no thyromegaly, no JVD CVS/Heart: RRR, normal S1S2, pulses present bilaterally Chest/Lungs: CTA B, Symmetrical chest expansion, good air entry bilaterally GI/Abdomen: soft, NTND, good bowel sounds, no guarding or rebound /Bladder: no suprapubic tenderness, no CVA or paraspinal tenderness Extermity/Skin: no c/c/e, no obvious rash MSK: FROM x 4 Neuro: CN 2-12 grossly intact, no new focal deficits Psych: calm - Constitutional Vitals: Temp Pulse Resp BP Pulse Ox 97.5 F L 70 7 L 136/78 97 01/18/19 19:00 01/19/19 06:20 01/19/19 06:20 01/19/19 06:20 01/19/19 06:20 General appearance: Present: no acute distress Results - Labs CBC & Chem 7: 01/17/19 23:56 01/19/19 08:29 Labs: Laboratory Last Values WBC 8.5 K/mm3 (4.5-11.0) 01/17/19 16:31 RBC 4.28 M/mm3 (3.65-5.03) 01/17/19 16:31 Hgb 9.7 gm/dl (10.1-14.3) L 01/17/19 23:56 Hct 30.4 % (30.3-42.9) 01/17/19 23:56 MCV 72 fl (79-97) L 01/17/19 16:31 MCH 22 pg (28-32) L 01/17/19 16:31 MCHC 31 % (30-34) 01/17/19 16:31 RDW 17.9 % (13.2-15.2) H 01/17/19 16:31 Plt Count 283 K/mm3 (140-440) 01/17/19 23:56 Lymph % (Auto) 24.9 % (13.4-35.0) 01/17/19 16:31 [place] % (Auto) 6.5 % (0.0-7.3) 01/17/19 16:31 Eos % (Auto) 0.4 % (0.0-4.3) 01/17/19 16:31 Baso % (Auto) 0.6 % (0.0-1.8) 01/17/19 16:31 Lymph # 2.1 K/mm3 (1.2-5.4) 01/17/19 16:31 [place] # 0.6 K/mm3 (0.0-0.8) 01/17/19 16:31 Eos # 0.0 K/mm3 (0.0-0.4) 01/17/19 16:31 Baso # 0.0 K/mm3 (0.0-0.1) 01/17/19 16:31 Seg Neutrophils % 67.6 % (40.0-70.0) 01/17/19 16:31 Seg Neutrophils # 5.8 K/mm3 (1.8-7.7) 01/17/19 16:31 PT 14.3 Sec. (12.2-14.9) 01/17/19 23:56 INR 1.05 (0.87-1.13) 01/17/19 23:56 APTT > 240.0 Sec. (24.2-36.6) H* 01/18/19 01:49 Heparin Anti-Xa Level 0.10 U.I./ml (0.3-0.7) L 01/18/19 07:19 VBG pH 7.422 (7.320-7.420) H 01/17/19 17:08 Sodium 137 mmol/L (137-145) 01/18/19 21:15 Potassium 3.0 mmol/L (3.6-5.0) L 01/18/19 21:15 Chloride 93.7 mmol/L (98-107) L 01/18/19 21:15 Carbon Dioxide 32 mmol/L (22-30) H 01/18/19 21:15 Anion Gap 14 mmol/L 01/18/19 21:15 BUN 59 mg/dL (7-17) H 01/18/19 21:15 Creatinine 2.8 mg/dL (0.7-1.2) H 01/18/19 21:15 Estimated GFR 22 ml/min 01/18/19 21:15 BUN/Creatinine Ratio 21 % 01/18/19 21:15 Glucose 201 mg/dL (65-100) H 01/18/19 21:15 POC Glucose 99 (70-105) 01/19/19 05:24 Calcium 9.3 mg/dL (8.4-10.2) 01/18/19 21:15 Phosphorus 3.90 mg/dL (2.5-4.5) 01/17/19 23:56 Magnesium 2.40 mg/dL (1.7-2.3) H 01/18/19 11:23 Total Bilirubin 0.30 mg/dL (0.1-1.2) 01/17/19 16:31 AST 19 units/L (5-40) 01/17/19 16:31 ALT 13 units/L (7-56) 01/17/19 16:31 Alkaline Phosphatase 75 units/L (35-129) 01/17/19 16:31 Total Creatine Kinase 292 units/L (30-135) H 01/18/19 11:23 CK-MB (CK-2) 6.5 ng/mL (0.0-4.0) H 01/18/19 07:19 CK-MB (CK-2) Rel Index 2.2 (0-4) 01/18/19 07:19 Troponin T 0.161 ng/mL (0.00-0.029) H* 01/18/19 07:19 NT-Pro-B Natriuret Pep 84.14 pg/mL (0-450) 01/18/19 11:23 Total Protein 7.9 g/dL (6.3-8.2) 01/17/19 16:31 Albumin 3.7 g/dL (3.9-5) L 01/17/19 16:31 Albumin/Globulin Ratio 0.9 % 01/17/19 16:31 Triglycerides 185 mg/dL (2-149) H 01/17/19 16:31 Cholesterol 151 mg/dL (50-199) 01/17/19 16:31 LDL Cholesterol Direct 78 mg/dL (50-130) 01/17/19 16:31 HDL Cholesterol 34 mg/dL (40-59) L 01/17/19 16:31 Cholesterol/HDL Ratio 4.44 % 01/17/19 16:31 Lipase 28 units/L (13-60) 01/17/19 17:00 HCG, Qual Negative (Negative) 01/17/19 17:20 Urine Color Yellow (Yellow) 01/18/19 09:44 Urine Turbidity Slightly-cloudy (Clear) 01/18/19 09:44 Urine pH 5.0 (5.0-7.0) 01/18/19 09:44 Ur Specific [place] 1.015 (1.003-1.030) 01/18/19 09:44 Urine Protein 100 mg/dl mg/dL (Negative) 01/18/19 09:44 Urine Glucose (UA) >=500 mg/dL (Negative) 01/18/19 09:44 Urine Ketones Tr mg/dL (Negative) 01/18/19 09:44 Urine Blood Sm (Negative) 01/18/19 09:44 Urine Nitrite Neg (Negative) 01/18/19 09:44 Urine Bilirubin Neg (Negative) 01/18/19 09:44 Urine Urobilinogen < 2.0 mg/dL (<2.0) 01/18/19 09:44 Ur Leukocyte Esterase Sm (Negative) 01/18/19 09:44 Urine WBC (Auto) 10.0 /HPF (0.0-6.0) H 01/18/19 09:44 Urine RBC (Auto) 4.0 /HPF (0.0-6.0) 01/18/19 09:44 U Epithel Cells (Auto) 11.0 /HPF (0-13.0) 01/18/19 09:44 Urine Bacteria (Auto) 1+ /HPF (Negative) 01/18/19 09:44 Urine Mucus Few /HPF 01/18/19 09:44 Urine Eosinophils Few (None Seen) 01/18/19 09:44 Urine Creatinine 87.5 mg/dL (0.1-20.0) H 01/18/19 09:44 Urine Sodium 25 mmol/L 01/18/19 09:44 Urine Urea Nitrogen 480 01/18/19 09:44 Urine HCG, Qual Negative (Negative) 01/17/19 21:39 Urine Opiates Screen Presumptive negative 01/17/19 21:39 Urine Methadone Screen Presumptive negative 01/17/19 21:39 Ur Barbiturates Screen Presumptive negative 01/17/19 21:39 Ur Phencyclidine Scrn Presumptive negative 01/17/19 21:39 Ur Amphetamines Screen Presumptive negative 01/17/19 21:39 U Benzodiazepines Scrn Presumptive negative 01/17/19 21:39 Urine Cocaine Screen Presumptive negative 01/17/19 21:39 U Marijuana (THC) Screen Presumptive negative 01/17/19 21:39 Drugs of Abuse Note Disclamer 01/17/19 21:39 Nutrition/Malnutrition Assess - Dietary Evaluation Nutrition/Malnutrition Findings: Nutrition Notes Start: 01/18/19 1 4:23 Freq: Status: Active Protocol: Document 01/18/19 14:23 RM (Rec: 01/18/19 14:28 RM [id number]) Nutrition Notes Need for Assessment generated from: MD Order Initial or Follow up Brief Note Current Diagnosis Acute Kidney Injury,CKD(stage I-IV),Diabetes,Hypertension, Heart Failure Other Pertinent Diagnosis Abdominal pain,Gastroparesis, DKA, N/V Current Diet NPO Labs/Tests BG 520, 378, 422 Subjective/Other Information Consulted for nutrition recommendations and DM diet education. NPO in place d/t insulin drip per nurse. Pt asleep at time of visit. Nutrition Intervention Follow-Up By: 01/19/19 Additional Comments Follow for nutrition recommendations, DM diet education
[2019-01-19] MEDS: HumaLOG SUB-Q SCH ×4 (08:42→21:59)
[2019-01-19] MEDS: LANTUS SUB-Q SCH (08:43)
[2019-01-19] MEDS: ROCEPHIN/NS 1 GM/50 ML 1 GM/50 ML BAG IV SCH (09:32)
[2019-01-19] MEDS ORDERED: NON-FORMULARY (Isosorbide Dinitrate [Isosorbide Dinitrate] 30 MG) PO SCH (10:00)
[2019-01-19] MEDS: IMDUR PO SCH (10:31)
--- NOTE | 2019-01-19 10:44 | Progress Note ---
Assessment and Plan 1. Acute kidney injury: DEWAYNE superimposed on CKD stage 3 in the setting of DKA. CT abdomen was negative for hydronephrosis. Renal function is improving. Encouraged PO fluids. Avoid nephrotoxic agents. Meds dosage based on GFR. 2. FEN: Volume depletion, improving. Hypokalemia, improved. Monitor lytes. 3. DKA: Off Insulin drip. Blood sugar is better. 4. Chest pain: Followed by cards. 5. Anemia: Present on admission. 6. HTN. Subjective Date of service: 01/19/19 Interval history: Patient is feeling better today. Objective - Vital Signs Vital signs: Vital Signs - 12hr 01/18/19 01/18/19 01/18/19 22:50 23:00 23:10 Pulse Rate 76 78 73 Pulse Rate [ From Monitor] Respiratory 7 L 14 7 L Rate Blood Pressure 158/77 158/77 168/83 O2 Sat by Pulse 99 100 97 Oximetry 01/18/19 01/18/19 01/18/19 23:20 23:30 23:40 Pulse Rate 77 76 73 Pulse Rate [ From Monitor] Respiratory 10 L 14 16 Rate Blood Pressure 168/83 168/83 168/79 O2 Sat by Pulse 98 99 98 Oximetry 01/18/19 01/19/19 01/19/19 23:50 00:00 00:10 Pulse Rate 72 72 70 Pulse Rate [ 78 From Monitor] Respiratory 9 L 7 L 8 L Rate Blood Pressure 168/79 168/79 158/74 O2 Sat by Pulse 95 95 95 Oximetry 01/19/19 01/19/19 01/19/19 00:20 00:30 00:40 Pulse Rate 70 72 70 Pulse Rate [ From Monitor] Respiratory 8 L 7 L 7 L Rate Blood Pressure 158/74 158/74 143/79 O2 Sat by Pulse 97 96 94 Oximetry 01/19/19 01/19/19 01/19/19 00:50 01:00 01:10 Pulse Rate 70 68 67 Pulse Rate [ From Monitor] Respiratory 7 L 12 10 L Rate Blood Pressure 143/79 143/79 117/53 O2 Sat by Pulse 95 95 95 Oximetry 01/19/19 01/19/19 01/19/19 01:20 01:30 01:40 Pulse Rate 67 66 69 Pulse Rate [ From Monitor] Respiratory 12 9 L 7 L Rate Blood Pressure 117/53 117/53 104/48 O2 Sat by Pulse 95 94 92 Oximetry 01/19/19 01/19/19 01/19/19 01:50 02:00 02:10 Pulse Rate 73 69 66 Pulse Rate [ From Monitor] Respiratory 10 L 8 L 8 L Rate Blood Pressure 104/48 117/53 152/66 O2 Sat by Pulse 94 97 97 Oximetry 01/19/19 01/19/19 01/19/19 02:20 02:30 02:40 Pulse Rate 67 66 68 Pulse Rate [ From Monitor] Respiratory 8 L 8 L 8 L Rate Blood Pressure 152/66 152/66 103/56 O2 Sat by Pulse 97 97 97 Oximetry 01/19/19 01/19/19 01/19/19 02:50 03:00 03:10 Pulse Rate 66 66 66 Pulse Rate [ From Monitor] Respiratory 14 9 L 8 L Rate Blood Pressure 103/56 103/56 103/56 O2 Sat by Pulse 98 96 97 Oximetry 01/19/19 01/19/19 01/19/19 03:20 03:30 03:40 Pulse Rate 66 69 72 Pulse Rate [ From Monitor] Respiratory 9 L 8 L 9 L Rate Blood Pressure 103/56 103/56 113/54 O2 Sat by Pulse 97 96 98 Oximetry 01/19/19 01/19/19 01/19/19 03:50 04:00 04:10 Pulse Rate 69 70 71 Pulse Rate [ 86 From Monitor] Respiratory 8 L 10 L 11 L Rate Blood Pressure 113/54 113/54 113/54 O2 Sat by Pulse 94 97 97 Oximetry 01/19/19 01/19/19 01/19/19 04:20 04:30 04:40 Pulse Rate 71 70 74 Pulse Rate [ From Monitor] Respiratory 7 L 7 L 10 L Rate Blood Pressure 113/54 113/54 162/79 O2 Sat by Pulse 99 99 99 Oximetry 01/19/19 01/19/19 01/19/19 04:50 05:00 05:10 Pulse Rate 75 72 73 Pulse Rate [ From Monitor] Respiratory 9 L 6 L 8 L Rate Blood Pressure 162/79 162/79 161/94 O2 Sat by Pulse 97 98 99 Oximetry 01/19/19 01/19/19 01/19/19 05:13 05:20 05:30 Pulse Rate 73 71 71 Pulse Rate [ From Monitor] Respiratory 6 L 11 L Rate Blood Pressure 161/94 161/94 161/94 O2 Sat by Pulse 99 98 Oximetry 01/19/19 01/19/19 01/19/19 05:40 05:50 06:00 Pulse Rate 71 71 70 Pulse Rate [ From Monitor] Respiratory 9 L 9 L 8 L Rate Blood Pressure 161/94 161/94 161/94 O2 Sat by Pulse 98 95 96 Oximetry 01/19/19 01/19/19 01/19/19 06:10 06:20 06:30 Pulse Rate 70 70 72 Pulse Rate [ From Monitor] Respiratory 7 L 7 L 8 L Rate Blood Pressure 136/78 136/78 149/73 O2 Sat by Pulse 96 97 95 Oximetry 01/19/19 01/19/19 01/19/19 06:40 06:50 07:00 Pulse Rate 75 75 82 Pulse Rate [ From Monitor] Respiratory 9 L 10 L 7 L Rate Blood Pressure 149/73 149/73 149/73 O2 Sat by Pulse 97 98 98 Oximetry 01/19/19 01/19/19 01/19/19 07:10 07:20 07:30 Pulse Rate 80 81 81 Pulse Rate [ From Monitor] Respiratory 7 L 11 L 8 L Rate Blood Pressure 201/104 201/104 201/104 O2 Sat by Pulse 97 96 97 Oximetry 01/19/19 01/19/19 01/19/19 07:40 07:50 08:00 Pulse Rate 80 81 80 Pulse Rate [ From Monitor] Respiratory 8 L 9 L 9 L Rate Blood Pressure 201/104 201/104 201/104 O2 Sat by Pulse 96 97 98 Oximetry 01/19/19 01/19/19 08:10 10:31 Pulse Rate 81 88 Pulse Rate [ From Monitor] Respiratory 6 L Rate Blood Pressure 159/91 182/94 O2 Sat by Pulse 98 Oximetry - General Appearance General appearance: well-developed, well-nourished, appears stated age, other (not in distress) EENT: ATNC, PERRL, mucous membranes dry, hearing intact, vision intact Neck: supple Respiratory: Present: Clear to Ascultation Cardiology: regular, S1S2, no murmurs Gastrointestinal: normoactive bowel sounds, no tenderness, no distended, obese Integumentary: no rash, warm and dry Neurologic: no focal deficit, no asterixis, alert and oriented x3 Musculoskeletal: other (no edema) - Lab 01/17/19 23:56 01/19/19 08:29 Most recent lab results Calcium 9.3 mg/dL (8.4-10.2) 01/18/19 21:15 Phosphorus 3.90 mg/dL (2.5-4.5) 01/17/19 23:56 Magnesium 2.40 mg/dL (1.7-2.3) H 01/18/19 11:23 Urine Creatinine 87.5 mg/dL (0.1-20.0) H 01/18/19 09:44 Urine Sodium 25 mmol/L 01/18/19 09:44 Medications & Allergies - Medications Allergies/Adverse Reactions: Allergies metoclopramide HCl [From Reglan] Allergy (Verified 01/17/19 15:50) Swelling morphine Allergy (Verified 01/17/19 15:50) Itching oxycodone HCl [From Percocet] Allergy (Verified 01/17/19 15:50) Swelling shellfish derived Allergy (Verified 01/17/19 15:50) Swelling Home Medications: Home Medications Medication Instructions Recorded Confirmed Last Taken Type Sitagliptin Phos/Metformin HCl 1 each PO BID 09/13/16 01/19/19 01/17/19 History [Janumet 50-500 mg Tablet] 25/50 Insulin Glargine,Hum.rec.anlog 40 unit SQ QHS #30 insuln.pen 03/19/17 01/19/19 01/17/19 Rx [Lantus Solostar] Simvastatin [Zocor TAB] 40 mg PO DAILY #30 tablet 03/19/17 01/19/19 01/17/19 Rx 40mg Furosemide [Lasix TAB] 40 mg PO BID 01/19/19 01/19/19 01/17/19 History 40 mg Gabapentin [Neurontin] 300 mg PO TID 01/19/19 01/19/19 01/17/19 History 300mg Hydralazine HCl 50 mg PO 01/19/19 01/17/19 History 50 MG Isosorbide Dinitrate 30 mg PO QDAY 01/19/19 01/19/19 01/17/19 History 30 mg Lispro Insulin [Humalog] 15 unit SQ 01/19/19 01/17/19 History 15 u Metaxalone 30 mg PO INTRAOP 01/19/19 01/19/19 01/17/19 History 30mg Active Medications: Generic Name Dose Route Start Last Admin Trade Name Freq PRN Reason Stop Dose Admin Acetaminophen 650 mg 01/17/19 21:56 01/19/19 08:43 Tylenol PO 650 mg Q4H PRN Administration Headache Dextrose 50 ml 01/19/19 07:51 D50w (25gm) Syringe IV PRN PRN Hypoglycemia Hydromorphone HCl 0.5 mg 01/18/19 00:26 01/19/19 10:30 Dilaudid IV 0.5 mg Q3H PRN Administration Pain , Severe (7-10) Ceftriaxone Sodium 1 gm in 50 mls @ 100 mls/hr 01/19/19 09:00 01/19/19 09:32 Rocephin/Ns 1 Gm/50 Ml IV 100 mls/hr Q24H KE Administration Protocol Sodium Chloride 1,000 mls @ 100 mls/hr 01/19/19 08:00 Nacl 0.9% 1000 Ml IV DIRECT KE Insulin Glargine 20 units 01/19/19 09:00 01/19/19 08:43 Lantus SUB-Q 20 units QAMDIAB KE Administration Insulin Human Lispro 0 unit 01/19/19 08:00 01/19/19 08:42 Humalog SUB-Q 4 unit ACHS KE Administration Protocol Isosorbide Mononitrate 30 mg 01/19/19 10:00 01/19/19 10:31 Imdur PO 30 mg DAILY KE Administration Ondansetron HCl 4 mg 01/17/19 21:57 01/18/19 19:51 Zofran IV 4 mg Q8H PRN Administration Nausea And Vomiting Pravastatin Sodium 80 mg 01/19/19 22:00 Pravachol PO QHS KE
[2019-01-19 10:47] LABS: Calcium 9.5 mg/dL (8.4-10.2)
[2019-01-19] MEDS ORDERED: APRESOLINE IV PRN (11:34)
--- NOTE | 2019-01-19 12:17 | Progress Note ---
Assessment and Plan - Patient Problems (1) Chest pain Current Visit: Yes Status: Acute Plan to address problem: Chest pain is atypical, followed protracted bouts of vomiting from diabetic gastroparesis, and associated with epigastric and reproducible tenderness. Recommend treatment for gastroesophageal reflux, and diabetic gastroparesis. We will obtain records from [facility], and plan further cardiac workup if indicated after review. Subjective Date of service: 01/19/19 Interval history: Patient is comfortable, no new cardiac complaints. It is reported that she has had recent multiple admissions to [facility], and may have undergone cardiac workup. She is unable to provide details of prior admissions and cardiac evaluation. Objective Vital Signs Temp Pulse Pulse Resp BP Pulse Ox 01/19/19 10:31 88 182/94 01/19/19 08:10 81 6 L 159/91 98 01/19/19 08:00 80 9 L 201/104 98 01/19/19 07:50 81 9 L 201/104 97 01/19/19 07:40 80 8 L 201/104 96 01/19/19 07:30 81 8 L 201/104 97 01/19/19 07:20 81 11 L 201/104 96 01/19/19 07:10 80 7 L 201/104 97 01/19/19 07:00 82 7 L 149/73 98 01/19/19 06:50 75 10 L 149/73 98 01/19/19 06:40 75 9 L 149/73 97 01/19/19 06:30 72 8 L 149/73 95 01/19/19 06:20 70 7 L 136/78 97 01/19/19 06:10 70 7 L 136/78 96 01/19/19 06:00 70 8 L 161/94 96 01/19/19 05:50 71 9 L 161/94 95 01/19/19 05:40 71 9 L 161/94 98 01/19/19 05:30 71 11 L 161/94 98 01/19/19 05:20 71 6 L 161/94 99 01/19/19 05:13 73 161/94 01/19/19 05:10 73 8 L 161/94 99 01/19/19 05:00 72 6 L 162/79 98 01/19/19 04:50 75 9 L 162/79 97 01/19/19 04:40 74 10 L 162/79 99 01/19/19 04:30 70 7 L 113/54 99 01/19/19 04:20 71 7 L 113/54 99 01/19/19 04:10 71 11 L 113/54 97 01/19/19 04:00 70 86 10 L 113/54 97 01/19/19 03:50 69 8 L 113/54 94 01/19/19 03:40 72 9 L 113/54 98 01/19/19 03:30 69 8 L 103/56 96 01/19/19 03:20 66 9 L 103/56 97 01/19/19 03:10 66 8 L 103/56 97 01/19/19 03:00 66 9 L 103/56 96 01/19/19 02:50 66 14 103/56 98 01/19/19 02:40 68 8 L 103/56 97 01/19/19 02:30 66 8 L 152/66 97 01/19/19 02:20 67 8 L 152/66 97 01/19/19 02:10 66 8 L 152/66 97 01/19/19 02:00 69 8 L 117/53 97 01/19/19 01:50 73 10 L 104/48 94 01/19/19 01:40 69 7 L 104/48 92 01/19/19 01:30 66 9 L 117/53 94 01/19/19 01:20 67 12 117/53 95 01/19/19 01:10 67 10 L 117/53 95 01/19/19 01:00 68 12 143/79 95 01/19/19 00:50 70 7 L 143/79 95 01/19/19 00:40 70 7 L 143/79 94 01/19/19 00:30 72 7 L 158/74 96 01/19/19 00:20 70 8 L 158/74 97 01/19/19 00:10 70 8 L 158/74 95 01/19/19 00:00 72 78 7 L 168/79 95 01/18/19 23:50 72 9 L 168/79 95 01/18/19 23:40 73 16 168/79 98 01/18/19 23:30 76 14 168/83 99 01/18/19 23:20 77 10 L 168/83 98 01/18/19 23:10 73 7 L 168/83 97 01/18/19 23:00 78 14 158/77 100 01/18/19 22:50 76 7 L 158/77 99 01/18/19 22:40 72 5 L 158/77 97 01/18/19 22:36 73 7 L 158/77 98 01/18/19 22:30 76 11 L 158/77 100 01/18/19 22:20 73 10 L 158/77 99 01/18/19 22:10 73 9 L 158/77 97 01/18/19 22:00 70 8 L 148/83 98 01/18/19 21:50 72 7 L 148/83 97 01/18/19 21:40 71 13 148/83 93 01/18/19 21:30 70 8 L 148/83 98 01/18/19 21:20 69 9 L 148/83 94 01/18/19 21:10 67 8 L 148/83 91 01/18/19 21:00 69 8 L 148/83 92 01/18/19 20:50 69 10 L 142/80 94 01/18/19 20:40 69 8 L 142/80 94 01/18/19 20:30 69 10 L 169/91 92 01/18/19 20:20 70 10 L 159/92 96 01/18/19 20:10 70 8 L 159/92 93 01/18/19 20:00 72 93 H 12 169/91 96 01/18/19 19:50 72 7 L 169/91 96 01/18/19 19:40 72 13 169/91 94 01/18/19 19:30 72 8 L 157/95 95 01/18/19 19:20 75 13 157/95 98 01/18/19 19:10 72 8 L 157/95 95 01/18/19 19:00 97.5 F L 74 8 L 157/95 94 01/18/19 18:50 73 13 157/95 95 01/18/19 18:40 73 8 L 97 01/18/19 18:30 74 11 L 154/84 91 01/18/19 18:20 72 9 L 154/84 95 01/18/19 18:11 69 11 L 154/84 94 01/18/19 18:00 69 8 L 154/84 93 01/18/19 17:59 69 154/84 01/18/19 17:51 69 12 152/85 92 01/18/19 17:41 71 9 L 165/96 94 01/18/19 17:31 71 6 L 165/96 94 01/18/19 17:21 76 13 155/85 97 01/18/19 17:11 72 10 L 152/85 96 01/18/19 17:00 69 7 L 152/85 93 01/18/19 16:51 70 8 L 155/85 96 01/18/19 16:41 70 9 L 155/85 91 01/18/19 16:30 71 8 L 155/85 94 01/18/19 16:21 72 8 L 158/93 92 01/18/19 16:11 73 5 L 169/88 93 01/18/19 16:00 73 10 L 169/88 96 01/18/19 15:51 74 8 L 158/93 97 01/18/19 15:41 74 6 L 158/93 96 01/18/19 15:40 73 158/93 01/18/19 15:30 73 7 L 158/93 92 01/18/19 15:21 73 11 L 156/88 96 01/18/19 15:11 73 9 L 156/88 96 01/18/19 15:00 72 72 11 L 169/94 97 01/18/19 14:51 72 6 L 170/89 97 01/18/19 14:41 72 11 L 170/89 96 01/18/19 14:30 71 9 L 156/88 95 01/18/19 14:21 71 10 L 170/89 94 01/18/19 14:11 70 8 L 170/89 95 01/18/19 14:01 70 11 L 170/89 95 01/18/19 13:51 70 7 L 152/86 98 01/18/19 13:41 69 10 L 152/86 95 01/18/19 13:31 69 8 L 152/86 94 01/18/19 13:21 70 16 112/67 97 01/18/19 13:11 68 9 L 112/67 95 01/18/19 13:01 68 11 L 126/71 97 01/18/19 12:51 66 8 L 126/71 93 01/18/19 12:41 66 9 L 126/71 94 01/18/19 12:30 65 8 L 119/71 92 01/18/19 12:21 66 9 L 126/71 92 - Physical Examination General: No Apparent Distress HEENT: Positive: PERRL Neck: Positive: neck supple, trachea midline Cardiac: Positive: Reg Rate and Rhythm Lungs: Positive: clear to auscultation Neuro: Positive: Grossly Intact Abdomen: Positive: Soft Skin: Positive: Clear Extremities: Absent: edema - Labs and Meds Comprehensive Metabolic Panel 01/18/19 01/18/19 01/18/19 Range/Units 11:23 15:28 21:15 Sodium 136 L 138 137 (137-145) mmol/L Potassium 3.4 L D 3.3 L 3.0 L (3.6-5.0) mmol/L Chloride 90.8 L 93.6 L 93.7 L (98-107) mmol/L Carbon Dioxide 29 30 32 H (22-30) mmol/L BUN 66 H 65 H 59 H (7-17) mg/dL Creatinine 3.3 H 2.9 H 2.8 H (0.7-1.2) mg/dL Glucose 239 H 190 H 201 H (65-100) mg/dL Calcium 9.3 9.3 9.3 (8.4-10.2) mg/dL 01/19/19 Range/Units 08:29 Sodium 134 L (137-145) mmol/L Potassium 4.1 D (3.6-5.0) mmol/L Chloride 92.6 L (98-107) mmol/L Carbon Dioxide 24 D (22-30) mmol/L BUN 52 H (7-17) mg/dL Creatinine 2.6 H (0.7-1.2) mg/dL Glucose 241 H (65-100) mg/dL Calcium 9.5 (8.4-10.2) mg/dL
--- NOTE | 2019-01-19 12:20 | Progress Note ---
Subjective Date of service: 01/19/19 Objective - Constitutional Vitals: Vital Signs - 12hr 01/19/19 01/19/19 01/19/19 00:30 00:40 00:50 Pulse Rate 72 70 70 Pulse Rate [ From Monitor] Respiratory 7 L 7 L 7 L Rate Blood Pressure 158/74 143/79 143/79 O2 Sat by Pulse 96 94 95 Oximetry 01/19/19 01/19/19 01/19/19 01:00 01:10 01:20 Pulse Rate 68 67 67 Pulse Rate [ From Monitor] Respiratory 12 10 L 12 Rate Blood Pressure 143/79 117/53 117/53 O2 Sat by Pulse 95 95 95 Oximetry 01/19/19 01/19/19 01/19/19 01:30 01:40 01:50 Pulse Rate 66 69 73 Pulse Rate [ From Monitor] Respiratory 9 L 7 L 10 L Rate Blood Pressure 117/53 104/48 104/48 O2 Sat by Pulse 94 92 94 Oximetry 01/19/19 01/19/19 01/19/19 02:00 02:10 02:20 Pulse Rate 69 66 67 Pulse Rate [ From Monitor] Respiratory 8 L 8 L 8 L Rate Blood Pressure 117/53 152/66 152/66 O2 Sat by Pulse 97 97 97 Oximetry 01/19/19 01/19/19 01/19/19 02:30 02:40 02:50 Pulse Rate 66 68 66 Pulse Rate [ From Monitor] Respiratory 8 L 8 L 14 Rate Blood Pressure 152/66 103/56 103/56 O2 Sat by Pulse 97 97 98 Oximetry 01/19/19 01/19/19 01/19/19 03:00 03:10 03:20 Pulse Rate 66 66 66 Pulse Rate [ From Monitor] Respiratory 9 L 8 L 9 L Rate Blood Pressure 103/56 103/56 103/56 O2 Sat by Pulse 96 97 97 Oximetry 01/19/19 01/19/19 01/19/19 03:30 03:40 03:50 Pulse Rate 69 72 69 Pulse Rate [ From Monitor] Respiratory 8 L 9 L 8 L Rate Blood Pressure 103/56 113/54 113/54 O2 Sat by Pulse 96 98 94 Oximetry 01/19/19 01/19/19 01/19/19 04:00 04:10 04:20 Pulse Rate 70 71 71 Pulse Rate [ 86 From Monitor] Respiratory 10 L 11 L 7 L Rate Blood Pressure 113/54 113/54 113/54 O2 Sat by Pulse 97 97 99 Oximetry 01/19/19 01/19/19 01/19/19 04:30 04:40 04:50 Pulse Rate 70 74 75 Pulse Rate [ From Monitor] Respiratory 7 L 10 L 9 L Rate Blood Pressure 113/54 162/79 162/79 O2 Sat by Pulse 99 99 97 Oximetry 01/19/19 01/19/19 01/19/19 05:00 05:10 05:13 Pulse Rate 72 73 73 Pulse Rate [ From Monitor] Respiratory 6 L 8 L Rate Blood Pressure 162/79 161/94 161/94 O2 Sat by Pulse 98 99 Oximetry 01/19/19 01/19/19 01/19/19 05:20 05:30 05:40 Pulse Rate 71 71 71 Pulse Rate [ From Monitor] Respiratory 6 L 11 L 9 L Rate Blood Pressure 161/94 161/94 161/94 O2 Sat by Pulse 99 98 98 Oximetry 01/19/19 01/19/19 01/19/19 05:50 06:00 06:10 Pulse Rate 71 70 70 Pulse Rate [ From Monitor] Respiratory 9 L 8 L 7 L Rate Blood Pressure 161/94 161/94 136/78 O2 Sat by Pulse 95 96 96 Oximetry 01/19/19 01/19/19 01/19/19 06:20 06:30 06:40 Pulse Rate 70 72 75 Pulse Rate [ From Monitor] Respiratory 7 L 8 L 9 L Rate Blood Pressure 136/78 149/73 149/73 O2 Sat by Pulse 97 95 97 Oximetry 01/19/19 01/19/19 01/19/19 06:50 07:00 07:10 Pulse Rate 75 82 80 Pulse Rate [ From Monitor] Respiratory 10 L 7 L 7 L Rate Blood Pressure 149/73 149/73 201/104 O2 Sat by Pulse 98 98 97 Oximetry 01/19/19 01/19/19 01/19/19 07:20 07:30 07:40 Pulse Rate 81 81 80 Pulse Rate [ From Monitor] Respiratory 11 L 8 L 8 L Rate Blood Pressure 201/104 201/104 201/104 O2 Sat by Pulse 96 97 96 Oximetry 01/19/19 01/19/19 01/19/19 07:50 08:00 08:10 Pulse Rate 81 80 81 Pulse Rate [ From Monitor] Respiratory 9 L 9 L 6 L Rate Blood Pressure 201/104 201/104 159/91 O2 Sat by Pulse 97 98 98 Oximetry 01/19/19 10:31 Pulse Rate 88 Pulse Rate [ From Monitor] Respiratory Rate Blood Pressure 182/94 O2 Sat by Pulse Oximetry - Labs CBC & Chem 7: 01/17/19 23:56 01/19/19 08:29 Labs: Abnormal lab results 01/18/19 01/18/19 01/18/19 Range/Units 09:44 11:23 11:23 Sodium 136 L (137-145) mmol/L Potassium 3.4 L D (3.6-5.0) mmol/L Chloride 90.8 L (98-107) mmol/L Carbon Dioxide (22-30) mmol/L BUN 66 H (7-17) mg/dL Creatinine 3.3 H (0.7-1.2) mg/dL Glucose 239 H (65-100) mg/dL POC Glucose (70-105) Magnesium (1.7-2.3) mg/dL Total Creatine Kinase 292 H (30-135) units/L Urine Creatinine 87.5 H (0.1-20.0) mg/dL 01/18/19 01/18/19 01/18/19 Range/Units 11:23 12:19 13:35 Sodium (137-145) mmol/L Potassium (3.6-5.0) mmol/L Chloride (98-107) mmol/L Carbon Dioxide (22-30) mmol/L BUN (7-17) mg/dL Creatinine (0.7-1.2) mg/dL Glucose (65-100) mg/dL POC Glucose 233 H 208 H (70-105) Magnesium 2.40 H (1.7-2.3) mg/dL Total Creatine Kinase (30-135) units/L Urine Creatinine (0.1-20.0) mg/dL 01/18/19 01/18/19 01/18/19 Range/Units 15:06 15:28 16:12 Sodium (137-145) mmol/L Potassium 3.3 L (3.6-5.0) mmol/L Chloride 93.6 L (98-107) mmol/L Carbon Dioxide (22-30) mmol/L BUN 65 H (7-17) mg/dL Creatinine 2.9 H (0.7-1.2) mg/dL Glucose 190 H (65-100) mg/dL POC Glucose 200 H 201 H (70-105) Magnesium (1.7-2.3) mg/dL Total Creatine Kinase (30-135) units/L Urine Creatinine (0.1-20.0) mg/dL 01/18/19 01/18/19 01/18/19 Range/Units 17:27 19:49 21:15 Sodium (137-145) mmol/L Potassium 3.0 L (3.6-5.0) mmol/L Chloride 93.7 L (98-107) mmol/L Carbon Dioxide 32 H (22-30) mmol/L BUN 59 H (7-17) mg/dL Creatinine 2.8 H (0.7-1.2) mg/dL Glucose 201 H (65-100) mg/dL POC Glucose 192 H 183 H (70-105) Magnesium (1.7-2.3) mg/dL Total Creatine Kinase (30-135) units/L Urine Creatinine (0.1-20.0) mg/dL 01/18/19 01/18/19 01/19/19 Range/Units 22:53 23:40 00:23 Sodium (137-145) mmol/L Potassium (3.6-5.0) mmol/L Chloride (98-107) mmol/L Carbon Dioxide (22-30) mmol/L BUN (7-17) mg/dL Creatinine (0.7-1.2) mg/dL Glucose (65-100) mg/dL POC Glucose 194 H 196 H 194 H (70-105) Magnesium (1.7-2.3) mg/dL Total Creatine Kinase (30-135) units/L Urine Creatinine (0.1-20.0) mg/dL 01/19/19 01/19/19 01/19/19 Range/Units 01:39 02:48 03:43 Sodium (137-145) mmol/L Potassium (3.6-5.0) mmol/L Chloride (98-107) mmol/L Carbon Dioxide (22-30) mmol/L BUN (7-17) mg/dL Creatinine (0.7-1.2) mg/dL Glucose (65-100) mg/dL POC Glucose 156 H 132 H 111 H (70-105) Magnesium (1.7-2.3) mg/dL Total Creatine Kinase (30-135) units/L Urine Creatinine (0.1-20.0) mg/dL 01/19/19 01/19/19 Range/Units 08:29 08:34 Sodium 134 L (137-145) mmol/L Potassium (3.6-5.0) mmol/L Chloride 92.6 L (98-107) mmol/L Carbon Dioxide (22-30) mmol/L BUN 52 H (7-17) mg/dL Creatinine 2.6 H (0.7-1.2) mg/dL Glucose 241 H (65-100) mg/dL POC Glucose 233 H (70-105) Magnesium (1.7-2.3) mg/dL Total Creatine Kinase (30-135) units/L Urine Creatinine (0.1-20.0) mg/dL Medications & Allergies - Medications Allergies/Adverse Reactions: Allergies metoclopramide HCl [From Reglan] Allergy (Verified 01/17/19 15:50) Swelling morphine Allergy (Verified 01/17/19 15:50) Itching oxycodone HCl [From Percocet] Allergy (Verified 01/17/19 15:50) Swelling shellfish derived Allergy (Verified 01/17/19 15:50) Swelling Home Medications: Home Medications Medication Instructions Recorded Confirmed Last Taken Type Sitagliptin Phos/Metformin HCl 1 each PO BID 09/13/16 01/19/19 01/17/19 History [Janumet 50-500 mg Tablet] 25/50 Insulin Glargine,Hum.rec.anlog 40 unit SQ QHS #30 insuln.pen 03/19/17 01/19/19 01/17/19 Rx [Lantus Solostar] Simvastatin [Zocor TAB] 40 mg PO DAILY #30 tablet 03/19/17 01/19/19 01/17/19 Rx 40mg Furosemide [Lasix TAB] 40 mg PO BID 01/19/19 01/19/19 01/17/19 History 40 mg Gabapentin [Neurontin] 300 mg PO TID 01/19/19 01/19/19 01/17/19 History 300mg Hydralazine HCl 50 mg PO 01/19/19 01/17/19 History 50 MG Isosorbide Dinitrate 30 mg PO QDAY 01/19/19 01/19/19 01/17/19 History 30 mg Lispro Insulin [Humalog] 15 unit SQ 01/19/19 01/17/19 History 15 u Metaxalone 30 mg PO INTRAOP 01/19/19 01/19/19 01/17/19 History 30mg Active Medications: Generic Name Dose Route Start Last Admin Trade Name Freq PRN Reason Stop Dose Admin Acetaminophen 650 mg 01/17/19 21:56 01/19/19 08:43 Tylenol PO 650 mg Q4H PRN Administration Headache Dextrose 50 ml 01/19/19 07:51 D50w (25gm) Syringe IV PRN PRN Hypoglycemia Gabapentin 300 mg 01/19/19 14:00 Neurontin PO Q8HR [facility] Heparin Sodium (Porcine) 5,000 unit 01/20/19 14:00 Heparin SUB-Q Q12HR KE Hydralazine HCl 10 mg 01/19/19 11:34 Apresoline IV Q4HR PRN Blood Pressure Hydromorphone HCl 0.5 mg 01/18/19 00:26 01/19/19 10:30 Dilaudid IV 0.5 mg Q3H PRN Administration Pain , Severe (7-10) Ceftriaxone Sodium 1 gm in 50 mls @ 100 mls/hr 01/19/19 09:00 01/19/19 09:32 Rocephin/Ns 1 Gm/50 Ml IV 100 mls/hr Q24H KE Administration Protocol Sodium Chloride 1,000 mls @ 100 mls/hr 01/19/19 08:00 Nacl 0.9% 1000 Ml IV DIRECT KE Insulin Glargine 20 units 01/19/19 09:00 01/19/19 08:43 Lantus SUB-Q 20 units QAMDIAB KE Administration Insulin Human Lispro 0 unit 01/19/19 08:00 01/19/19 08:42 Humalog SUB-Q 4 unit ACHS [facility] Administration Protocol Isosorbide Mononitrate 30 mg 01/19/19 10:00 01/19/19 10:31 Imdur PO 30 mg DAILY KE Administration Labetalol HCl 200 mg 01/19/19 11:00 Normodyne PO BID KE Ondansetron HCl 4 mg 01/17/19 21:57 01/18/19 19:51 Zofran IV 4 mg Q8H PRN Administration Nausea And Vomiting Pantoprazole Sodium 40 mg 01/20/19 10:00 Protonix PO QDAY KE Pravastatin Sodium 80 mg 01/19/19 22:00 Pravachol PO QHS KE
[2019-01-19] MEDS: NORMODYNE PO SCH ×2 (12:42→21:56)
[2019-01-19 13:27] LABS: Hemoglobin 9.4 gm/dl (10.1-14.3); Mean Corpuscular HGB Conc 31 % (30-34); Mean Corpuscular Volume 73 fl (79-97); Platelet Count 262 K/mm3 (140-440); Red Blood Count 4.11 M/mm3 (3.65-5.03); Red Cell Distribution Width 18.1 % (13.2-15.2)
[2019-01-19] MEDS ORDERED: NON-FORMULARY (Gabapentin [Neurontin] 300 MG) PO SCH (14:00)
[2019-01-19] MEDS: NEURONTIN PO SCH ×2 (14:30→21:56)
[2019-01-19] MEDS: ZOFRAN IV PRN ×2 (15:53→21:56)
[2019-01-19] MEDS: PRAVACHOL PO SCH (21:55)
[2019-01-19] MEDS ORDERED: NON-FORMULARY (Simvastatin 40 MG) PO SCH (22:00)
[2019-01-20] MEDS: DILAUDID IV PRN ×5 (01:10→18:27)
[2019-01-20] MEDS: NEURONTIN PO SCH ×3 (05:52→21:22)
[2019-01-20 07:30] LABS: Hemoglobin 8.1 gm/dl (10.1-14.3); Mean Corpuscular HGB Conc 31 % (30-34); Mean Corpuscular Volume 73 fl (79-97); Platelet Count 218 K/mm3 (140-440); Red Blood Count 3.56 M/mm3 (3.65-5.03); Red Cell Distribution Width 18.1 % (13.2-15.2)
[2019-01-20 07:45] LABS: Calcium 8.9 mg/dL (8.4-10.2)
--- NOTE | 2019-01-20 08:03 | Progress Note ---
Assessment and Plan 1. Acute kidney injury: DEWAYNE superimposed on CKD stage 3 in the setting of DKA. CT abdomen was negative for hydronephrosis. Renal function leveled off. Encouraged PO fluids. Avoid nephrotoxic agents. Meds dosage based on GFR. 2. FEN: Volume depletion, improving. Hypokalemia, replete K. Monitor lytes. 3. DKA: Off Insulin drip. Blood sugar remains high. 4. Chest pain: Followed by cards. 5. Anemia: Present on admission. 6. HTN. Subjective Date of service: 01/20/19 Interval history: Patient is feeling ok. Objective - Vital Signs Vital signs: Vital Signs - 12hr 01/19/19 01/19/19 01/19/19 21:34 21:56 21:58 Temperature 97.9 F Pulse Rate 73 73 Respiratory 24 18 Rate Blood Pressure 162/71 162/71 O2 Sat by Pulse 97 Oximetry 01/19/19 01/19/19 01/20/19 22:00 22:28 01:10 Temperature Pulse Rate 73 Respiratory 18 18 20 Rate Blood Pressure O2 Sat by Pulse 98 Oximetry 01/20/19 01/20/19 01/20/19 01:40 04:04 04:34 Temperature Pulse Rate Respiratory 18 20 18 Rate Blood Pressure O2 Sat by Pulse Oximetry 01/20/19 05:15 Temperature 97.8 F Pulse Rate 73 Respiratory 24 Rate Blood Pressure 128/67 O2 Sat by Pulse 97 Oximetry - General Appearance General appearance: well-developed, well-nourished, appears stated age, obese, other (not in distress) EENT: ATNC, PERRL, mucous membranes dry, hearing intact, vision intact Neck: supple Respiratory: Present: Clear to Ascultation Cardiology: regular, S1S2, no murmurs Gastrointestinal: normoactive bowel sounds Integumentary: no rash, warm and dry Neurologic: no focal deficit, no asterixis, alert and oriented x3 Musculoskeletal: other (no edema) - Lab 01/20/19 06:35 01/20/19 06:35 Most recent lab results Calcium 8.9 mg/dL (8.4-10.2) 01/20/19 06:35 Phosphorus 3.30 mg/dL (2.5-4.5) 01/19/19 08:29 Magnesium 2.40 mg/dL (1.7-2.3) H 01/18/19 11:23 Urine Creatinine 87.5 mg/dL (0.1-20.0) H 01/18/19 09:44 Urine Sodium 25 mmol/L 01/18/19 09:44 Medications & Allergies - Medications Allergies/Adverse Reactions: Allergies metoclopramide HCl [From Reglan] Allergy (Verified 01/17/19 15:50) Swelling morphine Allergy (Verified 01/17/19 15:50) Itching oxycodone HCl [From Percocet] Allergy (Verified 01/17/19 15:50) Swelling shellfish derived Allergy (Verified 01/17/19 15:50) Swelling Home Medications: Home Medications Medication Instructions Recorded Confirmed Last Taken Type Sitagliptin Phos/Metformin HCl 1 each PO BID 09/13/16 01/19/19 01/17/19 History [Janumet 50-500 mg Tablet] 25/50 Insulin Glargine,Hum.rec.anlog 40 unit SQ QHS #30 insuln.pen 03/19/17 01/19/19 01/17/19 Rx [Lantus Solostar] Simvastatin [Zocor TAB] 40 mg PO DAILY #30 tablet 03/19/17 01/19/19 01/17/19 Rx 40mg Furosemide [Lasix TAB] 40 mg PO BID 01/19/19 01/19/19 01/17/19 History 40 mg Gabapentin [Neurontin] 300 mg PO TID 01/19/19 01/19/19 01/17/19 History 300mg Hydralazine HCl 50 mg PO 01/19/19 01/17/19 History 50 MG Isosorbide Dinitrate 30 mg PO QDAY 01/19/19 01/19/19 01/17/19 History 30 mg Lispro Insulin [Humalog] 15 unit SQ 01/19/19 01/17/19 History 15 u Metaxalone 30 mg PO INTRAOP 01/19/19 01/19/19 01/17/19 History 30mg Active Medications: Generic Name Dose Route Start Last Admin Trade Name Freq PRN Reason Stop Dose Admin Acetaminophen 650 mg 01/17/19 21:56 01/19/19 08:43 Tylenol PO 650 mg Q4H PRN Administration Headache Dextrose 50 ml 01/19/19 07:51 D50w (25gm) Syringe IV PRN PRN Hypoglycemia Gabapentin 300 mg 01/19/19 14:00 01/20/19 05:52 Neurontin PO 300 mg Q8HR KE Administration Heparin Sodium (Porcine) 5,000 unit 01/20/19 14:00 Heparin SUB-Q Q12HR KE Hydralazine HCl 10 mg 01/19/19 11:34 Apresoline IV Q4HR PRN Blood Pressure Hydromorphone HCl 0.5 mg 01/18/19 00:26 01/20/19 04:04 Dilaudid IV 0.5 mg Q3H PRN Administration Pain , Severe (7-10) Ceftriaxone Sodium 1 gm in 50 mls @ 100 mls/hr 01/19/19 09:00 01/19/19 09:32 Rocephin/Ns 1 Gm/50 Ml IV 100 mls/hr Q24H KE Administration Protocol Sodium Chloride 1,000 mls @ 100 mls/hr 01/19/19 08:00 Nacl 0.9% 1000 Ml IV DIRECT KE Insulin Glargine 20 units 01/19/19 09:00 01/19/19 08:43 Lantus SUB-Q 20 units QAMDIAB KE Administration Insulin Human Lispro 0 unit 01/19/19 08:00 01/19/19 21:59 Humalog SUB-Q 8 unit ACHS KE Administration Protocol Isosorbide Mononitrate 30 mg 01/19/19 10:00 01/19/19 10:31 Imdur PO 30 mg DAILY KE Administration Labetalol HCl 200 mg 01/19/19 11:00 01/19/19 21:56 Normodyne PO 200 mg BID KE Administration Ondansetron HCl 4 mg 01/17/19 21:57 01/19/19 21:56 Zofran IV 4 mg Q8H PRN Administration Nausea And Vomiting Pantoprazole Sodium 40 mg 01/20/19 10:00 Protonix PO QDAY KE Pravastatin Sodium 80 mg 01/19/19 22:00 01/19/19 21:55 Pravachol PO 80 mg QHS KE Administration
[2019-01-20] MEDS ORDERED: K-DUR PO NR (09:00)
[2019-01-20] MEDS: HumaLOG SUB-Q SCH ×4 (09:21→21:22)
[2019-01-20] MEDS: ROCEPHIN/NS 1 GM/50 ML 1 GM/50 ML BAG IV SCH (09:22)
[2019-01-20] MEDS: LANTUS SUB-Q SCH (09:22)
[2019-01-20] MEDS: ZOFRAN IV PRN ×2 (09:38→18:11)
[2019-01-20] MEDS: NACL 0.9% 1000 ML 1,000 ML IV SCH (09:39)
--- NOTE | 2019-01-20 11:03 | Progress Note ---
Assessment and Plan Gastroparesis DKA Chest pain followed protracted bouts of vomiting from diabetic gastroparesis, Hypertension Diabetes Cardiac tests at [facility]: Normal myocardial perfusion scan done. Normal LVEF 56% by echocardiogram. Conservative cardiac management. Subjective Date of service: 01/20/19 Interval history: Patient has no cardiac complaints. No distress noted. Objective Vital Signs Temp Pulse Pulse Resp BP Pulse Ox 01/20/19 05:15 97.8 F 73 24 128/67 97 01/20/19 04:34 18 01/20/19 04:04 20 01/20/19 01:40 18 01/20/19 01:10 20 01/19/19 22:28 18 01/19/19 22:00 73 18 98 01/19/19 21:58 18 01/19/19 21:56 73 162/71 01/19/19 21:34 97.9 F 73 24 162/71 97 01/19/19 16:42 97.7 F 73 18 147/64 98 01/19/19 13:30 180/105 97 01/19/19 13:20 79 7 L 180/105 97 01/19/19 13:10 84 13 180/105 97 01/19/19 13:00 89 11 L 187/94 98 01/19/19 12:50 91 H 13 187/94 98 01/19/19 12:42 91 H 187/94 01/19/19 12:40 87 13 187/94 97 01/19/19 12:30 86 7 L 187/94 98 01/19/19 12:20 89 11 L 187/94 96 01/19/19 12:10 88 11 L 187/94 96 01/19/19 12:00 89 88 9 L 170/91 96 01/19/19 11:50 89 11 L 170/91 98 01/19/19 11:40 90 9 L 170/91 97 01/19/19 11:30 88 9 L 182/94 96 01/19/19 11:20 87 6 L 182/94 97 01/19/19 11:10 88 6 L 189/92 96 01/19/19 11:00 90 15 182/94 98 - Physical Examination General: No Apparent Distress HEENT: Positive: PERRL Neck: Positive: trachea midline Cardiac: Positive: Reg Rate and Rhythm Lungs: Positive: Decreased Breath Sounds Neuro: Positive: Grossly Intact Extremities: Absent: edema - Labs and Meds CBC 01/19/19 01/20/19 Range/Units 12:37 06:35 WBC 9.4 7.0 (4.5-11.0) K/mm3 RBC 4.11 3.56 L (3.65-5.03) M/mm3 Hgb 9.4 L 8.1 L (10.1-14.3) gm/dl Hct 30.0 L 26.0 L (30.3-42.9) % Plt Count 262 218 (140-440) K/mm3 Comprehensive Metabolic Panel 01/19/19 01/20/19 Range/Units 08:29 06:35 Sodium 132 L (137-145) mmol/L Potassium 4.1 D 3.3 L (3.6-5.0) mmol/L Chloride 90.5 L (98-107) mmol/L Carbon Dioxide 24 D 28 (22-30) mmol/L BUN 49 H (7-17) mg/dL Creatinine 2.8 H (0.7-1.2) mg/dL Glucose 434 H (65-100) mg/dL Calcium 8.9 (8.4-10.2) mg/dL
[2019-01-20] MEDS: PROTONIX PO SCH (12:59)
[2019-01-20] MEDS: IMDUR PO SCH (12:59)
[2019-01-20] MEDS: NORMODYNE PO SCH ×2 (12:59→21:22)
--- NOTE | 2019-01-20 15:02 | Progress Note ---
Assessment and Plan Imp: 1. SOB/chest pain, unclear etiology 2. DKA 3. Volume depletion 4. DEWAYNE 5. Obesity 6. Microcytic anemia Rec: 1. Diabetes treatment, electrolyte repletion, anemia management per primary 2. F/u cardiology recs 3. Outpatient PFTs and consider PSG as well; f/u with us 1-2 weeks after d/c 4. Can go home [id number]; will sign off Plan of care reviewed w/ patient, she understands/agrees Subjective Date of service: 01/20/19 Principal diagnosis: SOB Interval history: No events. On RA. Poor PO intake. SOB with exertion and chest heaviness are stab le, and these are chronic problems. No new complaints. Active Medications Acetaminophen (Tylenol) 650 mg PO Q4H PRN PRN Reason: Headache Last Admin: 01/19/19 08:43 Dose: 650 mg Documented by: Dextrose (D50w (25gm) Syringe) 50 ml IV PRN PRN PRN Reason: Hypoglycemia Gabapentin (Neurontin) 300 mg PO BID KE Last Admin: 01/20/19 13:00 Dose: 300 mg Documented by: Heparin Sodium (Porcine) (Heparin) 5,000 unit SUB-Q Q12HR KE Hydralazine HCl (Apresoline) 10 mg IV Q4HR PRN PRN Reason: Blood Pressure Hydromorphone HCl (Dilaudid) 0.5 mg IV Q3H PRN PRN Reason: Pain , Severe (7-10) Last Admin: 01/20/19 13:09 Dose: 0.5 mg Documented by: Ceftriaxone Sodium (Rocephin/Ns 1 Gm/50 Ml) 1 gm in 50 mls @ 100 mls/hr IV Q24H KE; Protocol Last Admin: 01/20/19 09:22 Dose: 100 mls/hr Documented by: Sodium Chloride (Nacl 0.9% 1000 Ml) 1,000 mls @ 100 mls/hr IV DIRECT KE Last Admin: 01/20/19 09:39 Dose: 100 mls/hr Documented by: Insulin Glargine (Lantus) 20 units SUB-Q QAMDIAB KE Last Admin: 01/20/19 09:22 Dose: 20 units Documented by: Insulin Human Lispro (Humalog) 0 unit SUB-Q ACHS KE; Protocol Last Admin: 01/20/19 12:57 Dose: 10 unit Documented by: Isosorbide Mononitrate (Imdur) 30 mg PO DAILY [facility] Last Admin: 01/20/19 12:59 Dose: 30 mg Documented by: Labetalol HCl (Normodyne) 200 mg PO BID [facility] Last Admin: 01/20/19 12:59 Dose: 200 mg Documented by: Ondansetron HCl (Zofran) 4 mg IV Q8H PRN PRN Reason: Nausea And Vomiting Last Admin: 01/20/19 09:38 Dose: 4 mg Documented by: Pantoprazole Sodium (Protonix) 40 mg PO QDAY [facility] Last Admin: 01/20/19 12:59 Dose: 40 mg Documented by: Pravastatin Sodium (Pravachol) 80 mg PO QHS [facility] Last Admin: 01/19/19 21:55 Dose: 80 mg Documented by: Objective Vital Signs - 12hr 01/20/19 01/20/19 01/20/19 04:04 04:34 05:15 Temperature 97.8 F Pulse Rate 73 Respiratory 20 18 24 Rate Blood Pressure 128/67 O2 Sat by Pulse 97 Oximetry 01/20/19 01/20/19 11:20 12:59 Temperature 97.9 F Pulse Rate 80 80 Respiratory 18 Rate Blood Pressure 160/85 160/85 O2 Sat by Pulse 97 Oximetry Constitutional: no acute distress, alert Eyes: non-icteric ENT: oropharynx moist Neck: supple Effort: normal Ascultation: Bilateral: diminished breath sounds Cardiovascular: regular rate and rhythm (no mrg) Gastrointestinal: normoactive bowel sounds, soft, non-tender, non-distended Integumentary: normal Extremities: no cyanosis, no edema, pink and warm Neurologic: normal mental status, non-focal exam, pupils equal and round, CN II- XII normal Psychiatric: mood appropriate, affect normal CBC and BMP: 01/20/19 06:35 01/20/19 06:35 ABG, PT/INR, D-dimer: PT/INR, D-dimer PT 14.3 Sec. (12.2-14.9) 01/17/19 23:56 INR 1.05 (0.87-1.13) 01/17/19 23:56 Abnormal lab findings: Abnormal Labs 01/17/19 01/17/19 01/17/19 16:11 16:31 16:31 RBC Hgb 9.5 L Hct MCV 72 L MCH 22 L RDW 17.9 H APTT Heparin Anti-Xa Level VBG pH Sodium 125 L Potassium 3.4 L Chloride 76.1 L Carbon Dioxide BUN 71 H Creatinine 3.7 H Glucose 732 H* POC Glucose > 500 H Calcium Magnesium Total Creatine Kinase CK-MB (CK-2) Troponin T 0.197 H* Albumin 3.7 L Triglycerides 185 H HDL Cholesterol 34 L Urine WBC (Auto) U Epithel Cells (Auto) Urine Creatinine 01/17/19 01/17/19 01/17/19 16:31 17:08 19:32 RBC Hgb Hct MCV MCH RDW APTT Heparin Anti-Xa Level VBG pH 7.422 H Sodium Potassium Chloride Carbon Dioxide BUN Creatinine Glucose 729 H* POC Glucose Calcium Magnesium Total Creatine Kinase CK-MB (CK-2) Troponin T 0.177 H* Albumin Triglycerides HDL Cholesterol Urine WBC (Auto) U Epithel Cells (Auto) Urine Creatinine 01/17/19 01/17/19 01/17/19 21:39 21:49 23:25 RBC Hgb Hct MCV MCH RDW APTT Heparin Anti-Xa Level VBG pH Sodium Potassium Chloride Carbon Dioxide BUN Creatinine Glucose POC Glucose 447 H 437 H Calcium Magnesium Total Creatine Kinase CK-MB (CK-2) Troponin T Albumin Triglycerides HDL Cholesterol Urine WBC (Auto) U Epithel Cells (Auto) 19.0 H Urine Creatinine 01/17/19 01/17/19 01/17/19 23:56 23:56 23:56 RBC Hgb 9.7 L Hct MCV MCH RDW APTT 107.6 H* Heparin Anti-Xa Level VBG pH Sodium Potassium Chloride Carbon Dioxide BUN Creatinine Glucose POC Glucose Calcium Magnesium 2.40 H Total Creatine Kinase CK-MB (CK-2) Troponin T Albumin Triglycerides HDL Cholesterol Urine WBC (Auto) U Epithel Cells (Auto) Urine Creatinine 01/17/19 01/18/19 01/18/19 23:56 00:07 01:39 RBC Hgb Hct MCV MCH RDW APTT Heparin Anti-Xa Level VBG pH Sodium 131 L 126 L Potassium 3.0 L Chloride 80.7 L 97.6 L Carbon Dioxide 18 L D BUN 69 H 51 H Creatinine 3.2 H 2.2 H Glucose 520 H* 378 H POC Glucose Calcium 6.1 L D Magnesium Total Creatine Kinase 359 H CK-MB (CK-2) 7.7 H Troponin T 0.187 H* Albumin Triglycerides HDL Cholesterol Urine WBC (Auto) U Epithel Cells (Auto) Urine Creatinine 01/18/19 01/18/19 01/18/19 01:49 04:10 06:08 RBC Hgb Hct MCV MCH RDW APTT > 240.0 H* Heparin Anti-Xa Level VBG pH Sodium Potassium Chloride Carbon Dioxide BUN Creatinine Glucose POC Glucose 418 H 456 H Calcium Magnesium Total Creatine Kinase CK-MB (CK-2) Troponin T Albumin Triglycerides HDL Cholesterol Urine WBC (Auto) U Epithel Cells (Auto) Urine Creatinine 01/18/19 01/18/19 01/18/19 07:19 07:19 07:36 RBC Hgb Hct MCV MCH RDW APTT Heparin Anti-Xa Level 0.10 L VBG pH Sodium 133 L D Potassium 2.6 L* D Chloride 88.0 L Carbon Dioxide BUN 66 H Creatinine 3.1 H Glucose 422 H POC Glucose 422 H Calcium Magnesium Total Creatine Kinase 294 H CK-MB (CK-2) 6.5 H Troponin T 0.161 H* Albumin Triglycerides HDL Cholesterol Urine WBC (Auto) U Epithel Cells (Auto) Urine Creatinine 01/18/19 01/18/19 01/18/19 08:12 09:12 09:44 RBC Hgb Hct MCV MCH RDW APTT Heparin Anti-Xa Level VBG pH Sodium Potassium Chloride Carbon Dioxide BUN Creatinine Glucose POC Glucose 339 H 332 H Calcium Magnesium Total Creatine Kinase CK-MB (CK-2) Troponin T Albumin Triglycerides HDL Cholesterol Urine WBC (Auto) 10.0 H U Epithel Cells (Auto) Urine Creatinine 01/18/19 01/18/19 01/18/19 09:44 10:22 11:12 RBC Hgb Hct MCV MCH RDW APTT Heparin Anti-Xa Level VBG pH Sodium Potassium Chloride Carbon Dioxide BUN Creatinine Glucose POC Glucose 284 H 283 H Calcium Magnesium Total Creatine Kinase CK-MB (CK-2) Troponin T Albumin Triglycerides HDL Cholesterol Urine WBC (Auto) U Epithel Cells (Auto) Urine Creatinine 87.5 H 01/18/19 01/18/19 01/18/19 11:23 11:23 11:23 RBC Hgb Hct MCV MCH RDW APTT Heparin Anti-Xa Level VBG pH Sodium 136 L Potassium 3.4 L D Chloride 90.8 L Carbon Dioxide BUN 66 H Creatinine 3.3 H Glucose 239 H POC Glucose Calcium Magnesium 2.40 H Total Creatine Kinase 292 H CK-MB (CK-2) Troponin T Albumin Triglycerides HDL Cholesterol Urine WBC (Auto) U Epithel Cells (Auto) Urine Creatinine 01/18/19 01/18/19 01/18/19 12:19 13:35 15:06 RBC Hgb Hct MCV MCH RDW APTT Heparin Anti-Xa Level VBG pH Sodium Potassium Chloride Carbon Dioxide BUN Creatinine Glucose POC Glucose 233 H 208 H 200 H Calcium Magnesium Total Creatine Kinase CK-MB (CK-2) Troponin T Albumin Triglycerides HDL Cholesterol Urine WBC (Auto) U Epithel Cells (Auto) Urine Creatinine 01/18/19 01/18/19 01/18/19 15:28 16:12 17:27 RBC Hgb Hct MCV MCH RDW APTT Heparin Anti-Xa Level VBG pH Sodium Potassium 3.3 L Chloride 93.6 L Carbon Dioxide BUN 65 H Creatinine 2.9 H Glucose 190 H POC Glucose 201 H 192 H Calcium Magnesium Total Creatine Kinase CK-MB (CK-2) Troponin T Albumin Triglycerides HDL Cholesterol Urine WBC (Auto) U Epithel Cells (Auto) Urine Creatinine 01/18/19 01/18/19 01/18/19 19:49 21:15 22:53 RBC Hgb Hct MCV MCH RDW APTT Heparin Anti-Xa Level VBG pH Sodium Potassium 3.0 L Chloride 93.7 L Carbon Dioxide 32 H BUN 59 H Creatinine 2.8 H Glucose 201 H POC Glucose 183 H 194 H Calcium Magnesium Total Creatine Kinase CK-MB (CK-2) Troponin T Albumin Triglycerides HDL Cholesterol Urine WBC (Auto) U Epithel Cells (Auto) Urine Creatinine 01/18/19 01/19/19 01/19/19 23:40 00:23 01:39 RBC Hgb Hct MCV MCH RDW APTT Heparin Anti-Xa Level VBG pH Sodium Potassium Chloride Carbon Dioxide BUN Creatinine Glucose POC Glucose 196 H 194 H 156 H Calcium Magnesium Total Creatine Kinase CK-MB (CK-2) Troponin T Albumin Triglycerides HDL Cholesterol Urine WBC (Auto) U Epithel Cells (Auto) Urine Creatinine 01/19/19 01/19/19 01/19/19 02:48 03:43 08:29 RBC Hgb Hct MCV MCH RDW APTT Heparin Anti-Xa Level VBG pH Sodium 134 L Potassium Chloride 92.6 L Carbon Dioxide BUN 52 H Creatinine 2.6 H Glucose 241 H POC Glucose 132 H 111 H Calcium Magnesium Total Creatine Kinase CK-MB (CK-2) Troponin T Albumin Triglycerides HDL Cholesterol Urine WBC (Auto) U Epithel Cells (Auto) Urine Creatinine 01/19/19 01/19/19 01/19/19 08:34 12:25 12:37 RBC Hgb 9.4 L Hct 30.0 L MCV 73 L MCH 23 L RDW 18.1 H APTT Heparin Anti-Xa Level VBG pH Sodium Potassium Chloride Carbon Dioxide BUN Creatinine Glucose POC Glucose 233 H 310 H Calcium Magnesium Total Creatine Kinase CK-MB (CK-2) Troponin T Albumin Triglycerides HDL Cholesterol Urine WBC (Auto) U Epithel Cells (Auto) Urine Creatinine 01/19/19 01/19/19 01/20/19 16:45 21:47 06:35 RBC Hgb Hct MCV MCH RDW APTT Heparin Anti-Xa Level VBG pH Sodium 132 L Potassium 3.3 L Chloride 90.5 L Carbon Dioxide BUN 49 H Creatinine 2.8 H Glucose 434 H POC Glucose 413 H 401 H Calcium Magnesium Total Creatine Kinase CK-MB (CK-2) Troponin T Albumin Triglycerides HDL Cholesterol Urine WBC (Auto) U Epithel Cells (Auto) Urine Creatinine 01/20/19 01/20/19 01/20/19 06:35 07:48 11:40 RBC 3.56 L Hgb 8.1 L Hct 26.0 L MCV 73 L MCH 23 L RDW 18.1 H APTT Heparin Anti-Xa Level VBG pH Sodium Potassium Chloride Carbon Dioxide BUN Creatinine Glucose POC Glucose 414 H 400 H Calcium Magnesium Total Creatine Kinase CK-MB (CK-2) Troponin T Albumin Triglycerides HDL Cholesterol Urine WBC (Auto) U Epithel Cells (Auto) Urine Creatinine Chest x-ray: report reviewed, image reviewed (normal)
[2019-01-20] MEDS ORDERED: K-DUR PO ONE (15:16)
[2019-01-20] MEDS: HEPARIN SUB-Q SCH ×2 (15:27→22:00)
--- NOTE | 2019-01-20 16:27 | Progress Note ---
Assessment and Plan Assessment and plan: Patient is a 48 yo woman with history of type 2 IDDM, hypertension, gastroparesis, dyslipidemia, DM neuropathy, CHF with normal EF and TIA (denies CVA) who presented to [facility] ER with abdominal pains, nausea, vomiting, generalized weakness, and chest pain. She was admitted to ICU for DKA needing IV insulin drip. -DKA, anion gap closed, resolved: transition to sq Insulin -Uncontrolled DM type 2 on insulin: increase Insulin -Hypokalemia: replete and recheck -ARF, suspect vasomotor nephropathy and ATN with suspected CKD 3: treat with ivf, consulted renal, monitor bmp closely -Acute metabolic encephalopathy, poa, much better now (she admits to bein "out of it", she didn't remember me from yesterday) with correction of DKA -Elevated troponin: Cardiology following. Heparin drip stopped -Hypertension urgency: started Cardiac diet, treat with iv hydralazine -Microcytic Anemia, h/h steady: monitor cbc closely, investigate if worse, she needs outpatient workup. -Home med done and I reviewed with patient -DVT/GI prophy reviewed Increase Insulin dose, replete potassium, she is not really eating much, Her home Lantus is 40 units/day. Hopefully d/c tomorrow if tolerating diet and BG under 400 History Interval history: Patient was seen and examined. Follow-up on current diagnosis of DKA. Overnight uneventful. Patient denies any chest pain, shortness breath, nausea/vomiting or severe headaches. Imaging, nursing note, chart, labs and old chart reviewed. Discussed with patient. Hospitalist Physical - Physical exam Narrative exam: Gen: WDWN, NAD, Awake, Alert, Orientated HEENT: NCAT, EOMI, PERRL, OP Clear Neck: supple, no adenopathy, no thyromegaly, no JVD CVS/Heart: RRR, normal S1S2, pulses present bilaterally Chest/Lungs: CTA B, Symmetrical chest expansion, good air entry bilaterally GI/Abdomen: soft, NTND, good bowel sounds, no guarding or rebound /Bladder: no suprapubic tenderness, no CVA or paraspinal tenderness Extermity/Skin: no c/c/e, no obvious rash MSK: FROM x 4 Neuro: CN 2-12 grossly intact, no new focal deficits Psych: calm - Constitutional Vitals: Temp Pulse Resp BP Pulse Ox 97.9 F 80 18 160/85 97 01/20/19 11:20 01/20/19 12:59 01/20/19 11:20 01/20/19 12:59 01/20/19 11:20 General appearance: Present: no acute distress Results - Labs CBC & Chem 7: 01/20/19 06:35 01/20/19 06:35 Labs: Laboratory Last Values WBC 7.0 K/mm3 (4.5-11.0) 01/20/19 06:35 RBC 3.56 M/mm3 (3.65-5.03) L 01/20/19 06:35 Hgb 8.1 gm/dl (10.1-14.3) L 01/20/19 06:35 Hct 26.0 % (30.3-42.9) L 01/20/19 06:35 MCV 73 fl (79-97) L 01/20/19 06:35 MCH 23 pg (28-32) L 01/20/19 06:35 MCHC 31 % (30-34) 01/20/19 06:35 RDW 18.1 % (13.2-15.2) H 01/20/19 06:35 Plt Count 218 K/mm3 (140-440) 01/20/19 06:35 Lymph % (Auto) 24.9 % (13.4-35.0) 01/17/19 16:31 [place] % (Auto) 6.5 % (0.0-7.3) 01/17/19 16:31 Eos % (Auto) 0.4 % (0.0-4.3) 01/17/19 16:31 Baso % (Auto) 0.6 % (0.0-1.8) 01/17/19 16:31 Lymph # 2.1 K/mm3 (1.2-5.4) 01/17/19 16:31 Pine # 0.6 K/mm3 (0.0-0.8) 01/17/19 16:31 Eos # 0.0 K/mm3 (0.0-0.4) 01/17/19 16:31 Baso # 0.0 K/mm3 (0.0-0.1) 01/17/19 16:31 Seg Neutrophils % 67.6 % (40.0-70.0) 01/17/19 16:31 Seg Neutrophils # 5.8 K/mm3 (1.8-7.7) 01/17/19 16:31 PT 14.3 Sec. (12.2-14.9) 01/17/19 23:56 INR 1.05 (0.87-1.13) 01/17/19 23:56 APTT > 240.0 Sec. (24.2-36.6) H* 01/18/19 01:49 Heparin Anti-Xa Level 0.10 U.I./ml (0.3-0.7) L 01/18/19 07:19 VBG pH 7.422 (7.320-7.420) H 01/17/19 17:08 Sodium 132 mmol/L (137-145) L 01/20/19 06:35 Potassium 3.3 mmol/L (3.6-5.0) L 01/20/19 06:35 Chloride 90.5 mmol/L (98-107) L 01/20/19 06:35 Carbon Dioxide 28 mmol/L (22-30) 01/20/19 06:35 Anion Gap 17 mmol/L 01/20/19 06:35 BUN 49 mg/dL (7-17) H 01/20/19 06:35 Creatinine 2.8 mg/dL (0.7-1.2) H 01/20/19 06:35 Estimated GFR 22 ml/min 01/20/19 06:35 BUN/Creatinine Ratio 18 % 01/20/19 06:35 Glucose 434 mg/dL (65-100) H 01/20/19 06:35 POC Glucose 400 (70-105) H 01/20/19 11:40 Calcium 8.9 mg/dL (8.4-10.2) 01/20/19 06:35 Phosphorus 3.30 mg/dL (2.5-4.5) 01/19/19 08:29 Magnesium 2.40 mg/dL (1.7-2.3) H 01/18/19 11:23 Total Bilirubin 0.30 mg/dL (0.1-1.2) 01/17/19 16:31 AST 19 units/L (5-40) 01/17/19 16:31 ALT 13 units/L (7-56) 01/17/19 16:31 Alkaline Phosphatase 75 units/L (35-129) 01/17/19 16:31 Total Creatine Kinase 292 units/L (30-135) H 01/18/19 11:23 CK-MB (CK-2) 6.5 ng/mL (0.0-4.0) H 01/18/19 07:19 CK-MB (CK-2) Rel Index 2.2 (0-4) 01/18/19 07:19 Troponin T 0.161 ng/mL (0.00-0.029) H* 01/18/19 07:19 NT-Pro-B Natriuret Pep 84.14 pg/mL (0-450) 01/18/19 11:23 Total Protein 7.9 g/dL (6.3-8.2) 01/17/19 16:31 Albumin 3.7 g/dL (3.9-5) L 01/17/19 16:31 Albumin/Globulin Ratio 0.9 % 01/17/19 16:31 Triglycerides 185 mg/dL (2-149) H 01/17/19 16:31 Cholesterol 151 mg/dL (50-199) 01/17/19 16:31 LDL Cholesterol Direct 78 mg/dL (50-130) 01/17/19 16:31 HDL Cholesterol 34 mg/dL (40-59) L 01/17/19 16:31 Cholesterol/HDL Ratio 4.44 % 01/17/19 16:31 Lipase 28 units/L (13-60) 01/17/19 17:00 HCG, Qual Negative (Negative) 01/17/19 17:20 Urine Color Yellow (Yellow) 01/18/19 09:44 Urine Turbidity Slightly-cloudy (Clear) 01/18/19 09:44 Urine pH 5.0 (5.0-7.0) 01/18/19 09:44 Ur Specific [employer] 1.015 (1.003-1.030) 01/18/19 09:44 Urine Protein 100 mg/dl mg/dL (Negative) 01/18/19 09:44 Urine Glucose (UA) >=500 mg/dL (Negative) 01/18/19 09:44 Urine Ketones Tr mg/dL (Negative) 01/18/19 09:44 Urine Blood Sm (Negative) 01/18/19 09:44 Urine Nitrite Neg (Negative) 01/18/19 09:44 Urine Bilirubin Neg (Negative) 01/18/19 09:44 Urine Urobilinogen < 2.0 mg/dL (<2.0) 01/18/19 09:44 Ur Leukocyte Esterase Sm (Negative) 01/18/19 09:44 Urine WBC (Auto) 10.0 /HPF (0.0-6.0) H 01/18/19 09:44 Urine RBC (Auto) 4.0 /HPF (0.0-6.0) 01/18/19 09:44 U Epithel Cells (Auto) 11.0 /HPF (0-13.0) 01/18/19 09:44 Urine Bacteria (Auto) 1+ /HPF (Negative) 01/18/19 09:44 Urine Mucus Few /HPF 01/18/19 09:44 Urine Eosinophils Few (None Seen) 01/18/19 09:44 Urine Creatinine 87.5 mg/dL (0.1-20.0) H 01/18/19 09:44 Urine Sodium 25 mmol/L 01/18/19 09:44 Urine Urea Nitrogen 480 01/18/19 09:44 Urine HCG, Qual Negative (Negative) 01/17/19 21:39 Urine Opiates Screen Presumptive negative 01/17/19 21:39 Urine Methadone Screen Presumptive negative 01/17/19 21:39 Ur Barbiturates Screen Presumptive negative 01/17/19 21:39 Ur Phencyclidine Scrn Presumptive negative 01/17/19 21:39 Ur Amphetamines Screen Presumptive negative 01/17/19 21:39 U Benzodiazepines Scrn Presumptive negative 01/17/19 21:39 Urine Cocaine Screen Presumptive negative 01/17/19 21:39 U Marijuana (THC) Screen Presumptive negative 01/17/19 21:39 Drugs of Abuse Note Disclamer 01/17/19 21:39 Active Medications - Current Medications Current Medications: Generic Name Dose Route Start Last Admin Trade Name Freq PRN Reason Stop Dose Admin Acetaminophen 650 mg 01/17/19 21:56 01/19/19 08:43 Tylenol PO 650 mg Q4H PRN Administration Headache Dextrose 50 ml 01/19/19 07:51 D50w (25gm) Syringe IV PRN PRN Hypoglycemia Gabapentin 300 mg 01/20/19 10:00 01/20/19 13:00 Neurontin PO 300 mg BID KE Administration Heparin Sodium (Porcine) 5,000 unit 01/20/19 14:00 01/20/19 15:27 Heparin SUB-Q 5,000 unit Q12HR KE Administration Hydralazine HCl 10 mg 01/19/19 11:34 Apresoline IV Q4HR PRN Blood Pressure Hydromorphone HCl 0.5 mg 01/18/19 00:26 01/20/19 13:09 Dilaudid IV 0.5 mg Q3H PRN Administration Pain , Severe (7-10) Ceftriaxone Sodium 1 gm in 50 mls @ 100 mls/hr 01/19/19 09:00 01/20/19 09:22 Rocephin/Ns 1 Gm/50 Ml IV 100 mls/hr Q24H KE Administration Protocol Sodium Chloride 1,000 mls @ 100 mls/hr 01/19/19 08:00 01/20/19 09:39 Nacl 0.9% 1000 Ml IV 100 mls/hr DIRECT KE Administration Potassium Chloride 10 meq in 100 mls @ 100 mls/hr 01/20/19 17:00 Kcl 10meq/100ml IV 01/20/19 18:59 Q1H KE Insulin Glargine 10 units 01/20/19 20:00 Lantus SUB-Q 01/20/19 20:01 ONCE ONE Insulin Glargine 30 units 01/21/19 10:00 Lantus SUB-Q QAMDIAB KE Insulin Human Lispro 0 unit 01/19/19 08:00 01/20/19 12:57 Humalog SUB-Q 10 unit ACHS KE Administration Protocol Isosorbide Mononitrate 30 mg 01/19/19 10:00 01/20/19 12:59 Imdur PO 30 mg DAILY KE Administration Labetalol HCl 200 mg 01/19/19 11:00 01/20/19 12:59 Normodyne PO 200 mg BID KE Administration Ondansetron HCl 4 mg 01/17/19 21:57 01/20/19 09:38 Zofran IV 4 mg Q8H PRN Administration Nausea And Vomiting Pantoprazole Sodium 40 mg 01/20/19 10:00 01/20/19 12:59 Protonix PO 40 mg QDAY KE Administration Pravastatin Sodium 80 mg 01/19/19 22:00 01/19/19 21:55 Pravachol PO 80 mg QHS KE Administration Nutrition/Malnutrition Assess - Dietary Evaluation Nutrition/Malnutrition Findings: Nutrition Notes Start: 01/18/19 14:23 Freq: Status: Active Protocol: Document 01/19/19 17:28 RM (Rec: 01/19/19 17:37 RM [id number]) Nutrition Notes Initial or Follow up Assessment Current Diagnosis Acute Kidney Injury,CKD(stage I-IV),Diabetes,Hypertension, Heart Failure Other Pertinent Diagnosis Abdominal pain,Gastroparesis, DKA, N/V Current Diet Cardiac/Consistent CHO Labs/Tests BG 241 Pertinent Medications Reviewed Height 5 ft 10 in Weight 112.1 kg Lucas Body Weight (kg) 68.18 BMI 35.4 Subjective/Other Information Pt stated that she did not eat breakfast d/t lack of appetite but ate all of her lunch. Stated that eating the lunch made her nauseous. Stated that she is already familiar with the DM diet. Burn Absent Trauma Absent #1 Nutrition Diagnosis Predicted suboptimal energy intake Etiology decreased appetite, nausea As Evidenced by Signs and Symptoms pt statement that she did not eat breakfast Is patient on ventilator? No Is Patient Ambulatory and/or Out of Bed Yes REE-([place]-St. Jeor-ambulatory/OOB) [ 2380.625 [id number]] Kcal/Kg value to use for calculation 17 Approximate Energy Requirements Using 1906 kcal/Kg Calculation Used for Recommendations Kcal/kg Additional Notes Protein Needs:54-72g (0.6-0.8g /kg 90kg adjBW) Fluid Needs: 1 ml/kcal Nutrition Intervention Change Diet Order: Continue current Add Supplement/Snack (indicate name/kcal Nepro 1 daily /protein ) Provides kCal: 425 Provides Protein (gm) 19 Goal #1 Diet tolerance Goal #2 Meet at least 75% of calorie and protein needs via PO and ONS intakes Anticipated Discharge Needs: Unable to determine at this time Follow-Up By: 01/22/19 Additional Comments Follow for PO and ONS intakes
[2019-01-20] MEDS ORDERED: KCL 10MEQ/100ML 10 MEQ/100 ML BAG IV SCH (17:00)
[2019-01-20] MEDS ORDERED: LANTUS SUB-Q ONE (20:00)
[2019-01-20] MEDS: PRAVACHOL PO SCH (21:22)
[2019-01-21] MEDS: DILAUDID IV PRN ×2 (05:16→09:44)
[2019-01-21] MEDS: NACL 0.9% 1000 ML 1,000 ML IV SCH ×2 (05:17→18:16)
[2019-01-21] MEDS: ZOFRAN IV PRN ×2 (05:17→14:26)
[2019-01-21 06:45] LABS: Hematocrit 25.2 % (30.3-42.9); Mean Corpuscular HGB Conc 32 % (30-34); Mean Corpuscular Volume 72 fl (79-97); Platelet Count 216 K/mm3 (140-440); Red Blood Count 3.51 M/mm3 (3.65-5.03); Red Cell Distribution Width 18.2 % (13.2-15.2)
[2019-01-21 07:14] LABS: Calcium 8.7 mg/dL (8.4-10.2)
--- NOTE | 2019-01-21 07:36 | Progress Note ---
Assessment and Plan Assessment and plan: Patient is a 48 yo woman with history of type 2 IDDM, hypertension, gastroparesis, dyslipidemia, DM neuropathy, CHF with normal EF and TIA (denies CVA) who presented to [facility] ER with abdominal pains, nausea, vomiting, generalized weakness, and chest pain. She was admitted to ICU for DKA needing IV insulin drip. -DKA, anion gap closed, resolved: transition to sq Insulin -Uncontrolled DM type 2 on insulin: increase Insulin -Hypokalemia: replete and recheck -ARF, suspect vasomotor nephropathy and ATN with suspected CKD 3: treat with ivf, consulted renal, monitor bmp closely -Acute metabolic encephalopathy, poa, much better now (she admits to bein "out of it", she didn't remember me from yesterday) with correction of DKA -Elevated troponin: Cardiology following. Heparin drip stopped -Hypertension urgency: started Cardiac diet, treat with iv hydralazine -Microcytic Anemia, h/h steady: monitor cbc closely, investigate if worse, she needs outpatient workup. -Home med done and I reviewed with patient -DVT/GI prophy reviewed Increase Insulin dose, replete potassium, she is not really eating much, Her home Lantus is 40 units/day. still not tolerating a diet, so I will consult GI and increase insulin History Interval history: Patient was seen and examined. Follow-up on current diagnosis of DKA. Overnight uneventful. Patient denies any chest pain, shortness breath, nausea/vomiting or severe headaches. Imaging, nursing note, chart, labs and old chart reviewed. Discussed with patient. Hospitalist Physical - Physical exam Narrative exam: Gen: WDWN, NAD, Awake, Alert, Orientated HEENT: NCAT, EOMI, PERRL, OP Clear Neck: supple, no adenopathy, no thyromegaly, no JVD CVS/Heart: RRR, normal S1S2, pulses present bilaterally Chest/Lungs: CTA B, Symmetrical chest expansion, good air entry bilaterally GI/Abdomen: soft, NTND, good bowel sounds, no guarding or rebound /Bladder: no suprapubic tenderness, no CVA or paraspinal tenderness Extermity/Skin: no c/c/e, no obvious rash MSK: FROM x 4 Neuro: CN 2-12 grossly intact, no new focal deficits Psych: calm - Constitutional Vitals: Temp Pulse Resp BP Pulse Ox 98.0 F 74 18 140/67 96 01/21/19 05:50 01/21/19 05:50 01/21/19 05:50 01/21/19 05:50 01/21/19 05:50 General appearance: Present: no acute distress Results - Labs CBC & Chem 7: 01/21/19 05:11 01/21/19 05:11 Labs: Laboratory Last Values WBC 6.4 K/mm3 (4.5-11.0) 01/21/19 05:11 RBC 3.51 M/mm3 (3.65-5.03) L 01/21/19 05:11 Hgb 8.0 gm/dl (10.1-14.3) L 01/21/19 05:11 Hct 25.2 % (30.3-42.9) L 01/21/19 05:11 MCV 72 fl (79-97) L 01/21/19 05:11 MCH 23 pg (28-32) L 01/21/19 05:11 MCHC 32 % (30-34) 01/21/19 05:11 RDW 18.2 % (13.2-15.2) H 01/21/19 05:11 Plt Count 216 K/mm3 (140-440) 01/21/19 05:11 Lymph % (Auto) 24.9 % (13.4-35.0) 01/17/19 16:31 [place] % (Auto) 6.5 % (0.0-7.3) 01/17/19 16:31 Eos % (Auto) 0.4 % (0.0-4.3) 01/17/19 16:31 Baso % (Auto) 0.6 % (0.0-1.8) 01/17/19 16:31 Lymph # 2.1 K/mm3 (1.2-5.4) 01/17/19 16:31 [place] # 0.6 K/mm3 (0.0-0.8) 01/17/19 16:31 Eos # 0.0 K/mm3 (0.0-0.4) 01/17/19 16:31 Baso # 0.0 K/mm3 (0.0-0.1) 01/17/19 16:31 Seg Neutrophils % 67.6 % (40.0-70.0) 01/17/19 16:31 Seg Neutrophils # 5.8 K/mm3 (1.8-7.7) 01/17/19 16:31 PT 14.3 Sec. (12.2-14.9) 01/17/19 23:56 INR 1.05 (0.87-1.13) 01/17/19 23:56 APTT > 240.0 Sec. (24.2-36.6) H* 01/18/19 01:49 Heparin Anti-Xa Level 0.10 U.I./ml (0.3-0.7) L 01/18/19 07:19 VBG pH 7.422 (7.320-7.420) H 01/17/19 17:08 Sodium 134 mmol/L (137-145) L 01/21/19 05:11 Potassium 3.5 mmol/L (3.6-5.0) L 01/21/19 05:11 Chloride 95.1 mmol/L (98-107) L 01/21/19 05:11 Carbon Dioxide 25 mmol/L (22-30) 01/21/19 05:11 Anion Gap 17 mmol/L 01/21/19 05:11 BUN 45 mg/dL (7-17) H 01/21/19 05:11 Creatinine 2.7 mg/dL (0.7-1.2) H 01/21/19 05:11 Estimated GFR 23 ml/min 01/21/19 05:11 BUN/Creatinine Ratio 17 % 01/21/19 05:11 Glucose 397 mg/dL (65-100) H 01/21/19 05:11 POC Glucose 419 (70-105) H 01/20/19 20:47 Hemoglobin A1c 13.7 % (4-6) H 01/21/19 05:11 Calcium 8.7 mg/dL (8.4-10.2) 01/21/19 05:11 Phosphorus 3.30 mg/dL (2.5-4.5) 01/19/19 08:29 Magnesium 2.40 mg/dL (1.7-2.3) H 01/18/19 11:23 Total Bilirubin 0.30 mg/dL (0.1-1.2) 01/17/19 16:31 AST 19 units/L (5-40) 01/17/19 16:31 ALT 13 units/L (7-56) 01/17/19 16:31 Alkaline Phosphatase 75 units/L (35-129) 01/17/19 16:31 Total Creatine Kinase 292 units/L (30-135) H 01/18/19 11:23 CK-MB (CK-2) 6.5 ng/mL (0.0-4.0) H 01/18/19 07:19 CK-MB (CK-2) Rel Index 2.2 (0-4) 01/18/19 07:19 Troponin T 0.161 ng/mL (0.00-0.029) H* 01/18/19 07:19 NT-Pro-B Natriuret Pep 84.14 pg/mL (0-450) 01/18/19 11:23 Total Protein 7.9 g/dL (6.3-8.2) 01/17/19 16:31 Albumin 3.7 g/dL (3.9-5) L 01/17/19 16:31 Albumin/Globulin Ratio 0.9 % 01/17/19 16:31 Triglycerides 185 mg/dL (2-149) H 01/17/19 16:31 Cholesterol 151 mg/dL (50-199) 01/17/19 16:31 LDL Cholesterol Direct 78 mg/dL (50-130) 01/17/19 16:31 HDL Cholesterol 34 mg/dL (40-59) L 01/17/19 16:31 Cholesterol/HDL Ratio 4.44 % 01/17/19 16:31 Lipase 28 units/L (13-60) 01/17/19 17:00 HCG, Qual Negative (Negative) 01/17/19 17:20 Urine Color Yellow (Yellow) 01/18/19 09:44 Urine Turbidity Slightly-cloudy (Clear) 01/18/19 09:44 Urine pH 5.0 (5.0-7.0) 01/18/19 09:44 Ur Specific [place] 1.015 (1.003-1.030) 01/18/19 09:44 Urine Protein 100 mg/dl mg/dL (Negative) 01/18/19 09:44 Urine Glucose (UA) >=500 mg/dL (Negative) 01/18/19 09:44 Urine Ketones Tr mg/dL (Negative) 01/18/19 09:44 Urine Blood Sm (Negative) 01/18/19 09:44 Urine Nitrite Neg (Negative) 01/18/19 09:44 Urine Bilirubin Neg (Negative) 01/18/19 09:44 Urine Urobilinogen < 2.0 mg/dL (<2.0) 01/18/19 09:44 Ur Leukocyte Esterase Sm (Negative) 01/18/19 09:44 Urine WBC (Auto) 10.0 /HPF (0.0-6.0) H 01/18/19 09:44 Urine RBC (Auto) 4.0 /HPF (0.0-6.0) 01/18/19 09:44 U Epithel Cells (Auto) 11.0 /HPF (0-13.0) 01/18/19 09:44 Urine Bacteria (Auto) 1+ /HPF (Negative) 01/18/19 09:44 Urine Mucus Few /HPF 01/18/19 09:44 Urine Eosinophils Few (None Seen) 01/18/19 09:44 Urine Creatinine 87.5 mg/dL (0.1-20.0) H 01/18/19 09:44 Urine Sodium 25 mmol/L 01/18/19 09:44 Urine Urea Nitrogen 480 01/18/19 09:44 Urine HCG, Qual Negative (Negative) 01/17/19 21:39 Urine Opiates Screen Presumptive negative 01/17/19 21:39 Urine Methadone Screen Presumptive negative 01/17/19 21:39 Ur Barbiturates Screen Presumptive negative 01/17/19 21:39 Ur Phencyclidine Scrn Presumptive negative 01/17/19 21:39 Ur Amphetamines Screen Presumptive negative 01/17/19 21:39 U Benzodiazepines Scrn Presumptive negative 01/17/19 21:39 Urine Cocaine Screen Presumptive negative 01/17/19 21:39 U Marijuana (THC) Screen Presumptive negative 01/17/19 21:39 Drugs of Abuse Note Disclamer 01/17/19 21:39 Active Medications - Current Medications Current Medications: Generic Name Dose Route Start Last Admin Trade Name Freq PRN Reason Stop Dose Admin Acetaminophen 650 mg 01/17/19 21:56 01/19/19 08:43 Tylenol PO 650 mg Q4H PRN Administration Headache Dextrose 50 ml 01/19/19 07:51 D50w (25gm) Syringe IV PRN PRN Hypoglycemia Gabapentin 300 mg 01/20/19 10:00 01/20/19 21:22 Neurontin PO 300 mg BID KE Administration Heparin Sodium (Porcine) 5,000 unit 01/20/19 14:00 01/20/19 22:00 Heparin SUB-Q 5,000 unit Q12HR KE Administration Hydralazine HCl 10 mg 01/19/19 11:34 Apresoline IV Q4HR PRN Blood Pressure Hydromorphone HCl 0.5 mg 01/18/19 00:26 01/21/19 05:16 Dilaudid IV 0.5 mg Q3H PRN Administration Pain , Severe (7-10) Ceftriaxone Sodium 1 gm in 50 mls @ 100 mls/hr 01/19/19 09:00 01/20/19 09:22 Rocephin/Ns 1 Gm/50 Ml IV 100 mls/hr Q24H KE Administration Protocol Sodium Chloride 1,000 mls @ 100 mls/hr 01/19/19 08:00 01/21/19 05:17 Nacl 0.9% 1000 Ml IV 100 mls/hr DIRECT KE Administration Insulin Glargine 30 units 01/21/19 10:00 Lantus SUB-Q QAMDIAB KE Insulin Human Lispro 0 unit 01/19/19 08:00 01/20/19 21:22 Humalog SUB-Q 10 unit ACHS KE Administration Protocol Isosorbide Mononitrate 30 mg 01/19/19 10:00 01/20/19 12:59 Imdur PO 30 mg DAILY KE Administration Labetalol HCl 200 mg 01/19/19 11:00 01/20/19 21:22 Normodyne PO 200 mg BID KE Administration Ondansetron HCl 4 mg 01/17/19 21:57 01/21/19 05:17 Zofran IV 4 mg Q8H PRN Administration Nausea And Vomiting Pantoprazole Sodium 40 mg 01/20/19 10:00 01/20/19 12:59 Protonix PO 40 mg QDAY KE Administration Pravastatin Sodium 80 mg 01/19/19 22:00 01/20/19 21:22 Pravachol PO 80 mg QHS KE Administration Nutrition/Malnutrition Assess - Dietary Evaluation Nutrition/Malnutrition Findings: Nutrition Notes Start: 01/18/19 14:23 Freq: Status: Active Protocol: Document 01/19/19 17:28 RM (Rec: 01/19/19 17:37 RM [id number]) Nutrition Notes Initial or Follow up Assessment Current Diagnosis Acute Kidney Injury,CKD(stage I-IV),Diabetes,Hypertension, Heart Failure Other Pertinent Diagnosis Abdominal pain,Gastroparesis, DKA, N/V Current Diet Cardiac/Consistent CHO Labs/Tests BG 241 Pertinent Medications Reviewed Height 5 ft 10 in Weight 112.1 kg [place] Body Weight (kg) 68.18 BMI 35.4 Subjective/Other Information Pt stated that she did not eat breakfast d/t lack of appetite but ate all of her lunch. Stated that eating the lunch made her nauseous. Stated that she is already familiar with the DM diet. Burn Absent Trauma Absent #1 Nutrition Diagnosis Predicted suboptimal energy intake Etiology decreased appetite, nausea As Evidenced by Signs and Symptoms pt statement that she did not eat breakfast Is patient on ventilator? No Is Patient Ambulatory and/or Out of Bed Yes REE-([place]-[facility]. or-ambulatory/OOB) [ 8110.625 [id number]] Kcal/Kg value to use for calculation 17 Approximate Energy Requirements Using 1906 kcal/Kg Calculation Used for Recommendations Kcal/kg Additional Notes Protein Needs:54-72g (0.6-0.8g /kg 90kg adjBW) Fluid Needs: 1 ml/kcal Nutrition Intervention Change Diet Order: Continue current Add Supplement/Snack (indicate name/kcal Nepro 1 daily /protein ) Provides kCal: 425 Provides Protein (gm) 19 Goal #1 Diet tolerance Goal #2 Meet at least 75% of calorie and protein needs via PO and ONS intakes Anticipated Discharge Needs: Unable to determine at this time Follow-Up By: 01/22/19 Additional Comments Follow for PO and ONS intakes
[2019-01-21] MEDS: HumaLOG SUB-Q SCH ×4 (08:23→21:48)
--- NOTE | 2019-01-21 08:38 | Progress Note ---
Assessment and Plan 1. Acute kidney injury: DEWAYNE superimposed on CKD stage 3 in the setting of DKA. CT abdomen was negative for hydronephrosis. Renal function improving. Encouraged PO fluids. Avoid nephrotoxic agents. Meds dosage based on GFR. 2. FEN: Volume depletion, improving. Hypokalemia, replete K. Monitor lytes. 3. DKA: Off Insulin drip. Blood sugar remains high. 4. Chest pain: Followed by cards. 5. Anemia: Present on admission. 6. HTN. Subjective Date of service: 01/21/19 Principal diagnosis: SOB Interval history: Patient is feeling ok. Objective - Vital Signs Vital signs: Vital Signs - 12hr 01/20/19 01/20/19 01/20/19 21:20 21:22 23:30 Temperature 97.5 F L Pulse Rate 75 Respiratory 18 Rate Blood Pressure 152/74 152/74 141/52 O2 Sat by Pulse 91 Oximetry 01/21/19 05:50 Temperature 98.0 F Pulse Rate 74 Respiratory 18 Rate Blood Pressure 140/67 O2 Sat by Pulse 96 Oximetry - General Appearance General appearance: well-developed, well-nourished, appears stated age, obese, other (not in distress) EENT: ATNC, PERRL, hearing intact, vision intact Neck: supple Respiratory: Present: Clear to Ascultation Cardiology: regular, S1S2, no murmurs Gastrointestinal: normoactive bowel sounds, no tenderness, no distended, obese Integumentary: no rash, warm and dry Neurologic: no focal deficit, no asterixis, alert and oriented x3 Musculoskeletal: other (no edema) - Lab 01/21/19 05:11 01/21/19 05:11 Most recent lab results Calcium 8.7 mg/dL (8.4-10.2) 01/21/19 05:11 Phosphorus 3.30 mg/dL (2.5-4.5) 01/19/19 08:29 Magnesium 2.40 mg/dL (1.7-2.3) H 01/18/19 11:23 Urine Creatinine 87.5 mg/dL (0.1-20.0) H 01/18/19 09:44 Urine Sodium 25 mmol/L 01/18/19 09:44 Medications & Allergies - Medications Allergies/Adverse Reactions: Allergies metoclopramide HCl [From Reglan] Allergy (Verified 01/17/19 15:50) Swelling morphine Allergy (Verified 01/17/19 15:50) Itching oxycodone HCl [From Percocet] Allergy (Verified 01/17/19 15:50) Swelling shellfish derived Allergy (Verified 01/17/19 15:50) Swelling Home Medications: Home Medications Medication Instructions Recorded Confirmed Last Taken Type Sitagliptin Phos/Metformin HCl 1 each PO BID 09/13/16 01/19/19 01/17/19 History [Janumet 50-500 mg Tablet] 25/50 Insulin Glargine,Hum.rec.anlog 40 unit SQ QHS #30 insuln.pen 03/19/17 01/19/19 01/17/19 Rx [Lantus Solostar] Simvastatin [Zocor TAB] 40 mg PO DAILY #30 tablet 03/19/17 01/19/19 01/17/19 Rx 40mg Furosemide [Lasix TAB] 40 mg PO BID 01/19/19 01/19/19 01/17/19 History 40 mg Gabapentin [Neurontin] 300 mg PO TID 01/19/19 01/19/19 01/17/19 History 300mg Hydralazine HCl 50 mg PO TID 01/19/19 01/21/19 01/17/19 History 50 MG Isosorbide Dinitrate 30 mg PO QDAY 01/19/19 01/19/19 01/17/19 History 30 mg Lispro Insulin [Humalog] 15 unit SQ AC 01/19/19 01/21/19 01/17/19 History 15 u Metaxalone 30 mg PO INTRAOP 01/19/19 01/19/19 01/17/19 History 30mg Active Medications: Generic Name Dose Route Start Last Admin Trade Name Freq PRN Reason Stop Dose Admin Acetaminophen 650 mg 01/17/19 21:56 01/19/19 08:43 Tylenol PO 650 mg Q4H PRN Administration Headache Dextrose 50 ml 01/19/19 07:51 D50w (25gm) Syringe IV PRN PRN Hypoglycemia Gabapentin 300 mg 01/20/19 10:00 01/20/19 21:22 Neurontin PO 300 mg BID KE Administration Heparin Sodium (Porcine) 5,000 unit 01/20/19 14:00 01/20/19 22:00 Heparin SUB-Q 5,000 unit Q12HR KE Administration Hydralazine HCl 10 mg 01/19/19 11:34 Apresoline IV Q4HR PRN Blood Pressure Hydromorphone HCl 0.5 mg 01/18/19 00:26 01/21/19 05:16 Dilaudid IV 0.5 mg Q3H PRN Administration Pain , Severe (7-10) Ceftriaxone Sodium 1 gm in 50 mls @ 100 mls/hr 01/19/19 09:00 01/20/19 09:22 Rocephin/Ns 1 Gm/50 Ml IV 100 mls/hr Q24H KE Administration Protocol Sodium Chloride 1,000 mls @ 100 mls/hr 01/19/19 08:00 01/21/19 05:17 Nacl 0.9% 1000 Ml IV 100 mls/hr DIRECT KE Administration Insulin Glargine 30 units 01/21/19 10:00 Lantus SUB-Q QAMDIAB KE Insulin Human Lispro 0 unit 01/19/19 08:00 01/21/19 08:23 Humalog SUB-Q 10 unit ACHS KE Administration Protocol Isosorbide Mononitrate 30 mg 01/19/19 10:00 01/20/19 12:59 Imdur PO 30 mg DAILY KE Administration Labetalol HCl 200 mg 01/19/19 11:00 01/20/19 21:22 Normodyne PO 200 mg BID KE Administration Ondansetron HCl 4 mg 01/17/19 21:57 01/21/19 05:17 Zofran IV 4 mg Q8H PRN Administration Nausea And Vomiting Pantoprazole Sodium 40 mg 01/20/19 10:00 01/20/19 12:59 Protonix PO 40 mg QDAY KE Administration Potassium Chloride 40 meq 01/21/19 10:00 K-Dur PO 01/21/19 10:01 ONCE ONE Pravastatin Sodium 80 mg 01/19/19 22:00 01/20/19 21:22 Pravachol PO 80 mg QHS KE Administration
--- NOTE | 2019-01-21 08:41 | Progress Note ---
Assessment and Plan Gastroparesis DKA Chest pain followed protracted bouts of vomiting from diabetic gastroparesis Hypertension Diabetes Cardiac tests at [facility]: Normal myocardial perfusion scan. Normal LVEF 56% by echocardiogram. Conservative cardiac management. We will follow intermittently. Subjective Date of service: 01/21/19 Principal diagnosis: SOB Interval history: Patient has no cardiac complaints. Objective Vital Signs Temp Pulse Resp BP Pulse Ox 01/21/19 05:50 98.0 F 74 18 140/67 96 01/20/19 23:30 97.5 F L 75 18 141/52 91 01/20/19 21:22 152/74 01/20/19 21:20 152/74 01/20/19 17:02 98.2 F 73 18 138/71 96 01/20/19 12:59 80 160/85 01/20/19 11:20 97.9 F 80 18 160/85 97 01/20/19 10:00 76 97 - Physical Examination General: No Apparent Distress HEENT: Positive: PERRL Neck: Positive: trachea midline Cardiac: Positive: Reg Rate and Rhythm Lungs: Positive: Decreased Breath Sounds Neuro: Positive: Grossly Intact Abdomen: Positive: Soft Skin: Positive: Clear Extremities: Absent: edema - Labs and Meds CBC 01/21/19 Range/Units 05:11 WBC 6.4 (4.5-11.0) K/mm3 RBC 3.51 L (3.65-5.03) M/mm3 Hgb 8.0 L (10.1-14.3) gm/dl Hct 25.2 L (30.3-42.9) % Plt Count 216 (140-440) K/mm3 Comprehensive Metabolic Panel 01/21/19 Range/Units 05:11 Sodium 134 L (137-145) mmol/L Potassium 3.5 L (3.6-5.0) mmol/L Chloride 95.1 L (98-107) mmol/L Carbon Dioxide 25 (22-30) mmol/L BUN 45 H (7-17) mg/dL Creatinine 2.7 H (0.7-1.2) mg/dL Glucose 397 H (65-100) mg/dL Calcium 8.7 (8.4-10.2) mg/dL
[2019-01-21] MEDS: PROTONIX PO SCH (09:45)
[2019-01-21] MEDS: NEURONTIN PO SCH ×2 (09:46→21:39)
[2019-01-21] MEDS: NORMODYNE PO SCH ×2 (09:46→21:38)
[2019-01-21] MEDS: IMDUR PO SCH (09:46)
[2019-01-21] MEDS: HEPARIN SUB-Q SCH ×2 (09:47→21:39)
[2019-01-21] MEDS: ROCEPHIN/NS 1 GM/50 ML 1 GM/50 ML BAG IV SCH (09:52)
[2019-01-21] MEDS ORDERED: K-DUR PO ONE (10:00)
[2019-01-21] MEDS ORDERED: LANTUS SUB-Q SCH (10:00)
[2019-01-21] MEDS ORDERED: DILAUDID IV PRN (12:50)
--- NOTE | 2019-01-21 14:19 | Gastroenterology Consultation ---
<YOSVANY MONDRAGON - Last Filed: 01/21/19 14:53> History of Present Illness - Reason for Consult Consult date: 01/21/19 persistent nausea/vomiting, gastroparesis Requesting physician: ROSHAN BO - History of Present Illness Patient is a 48 y/o female with PMH of HTN, DM (uncontrolled), gastroparesis, dyslipidemia, neuropathy, pseudotumor cerebri, chronic anemia, and TIA who presented to ED with c/o abdominal pain, N/V, weakness and CP. Upon admission, blood glucose was found to be >700 and she was admitted with DKA, ALICIA, acute metabolic encephalopathy, and hypertensive urgency. She was evaluated by cardiology for CP with work up negative for ischemia. GI has been consulted for N/V, gastroparesis and atypical CP. Patient is previously known to our service and has had multiple prior hospitalizations for similar symptoms. She was last seen by our group at [facility] in November of this year but is normally followed by Dr. Lee at [facility]. She underwent an EGD on 11/29/2018 that showed retained food in the stomach c/w gastroparesis. Last colonoscopy in 2012 that showed hemorrhoids. This afternoon patient was resting in bed w/o acute distress finishing up eating lunch which she ate almost 100% of the food. Reports feeling better with epigastric/CP improving and no vomiting today but has some continued nausea. Denies wt loss, fever, SOB, or signs of bleeding. No NSAID use. S/p CCY. Allergic to Reglan 2/2 tardive dyskinesia. Past History Past Medical History: other (as per HPI) Past Surgical History: cholecystectomy, Other (foot surgery (toe amputation), breast reduction, Ectopic , colon 2012, EGD 11/2018) Social history: denies: smoking, alcohol abuse Family history: hypertension Medications and Allergies Allergies Allergy/AdvReac Type Severity Reaction Status Date / Time metoclopramide HCl Allergy Swelling Verified 01/17/19 15:50 [From Reglan] morphine Allergy Itching Verified 01/17/19 15:50 oxycodone HCl [From Percocet] Allergy Swelling Verified 01/17/19 15:50 shellfish derived Allergy Swelling Verified 01/17/19 15:50 Home Medications Medication Instructions Recorded Confirmed Last Taken Type Insulin Glargine,Hum.rec.anlog 40 unit SQ QHS #30 insuln.pen 03/19/17 01/19/19 01/17/19 Rx [Lantus Solostar] Simvastatin [Zocor TAB] 40 mg PO DAILY #30 tablet 03/19/17 01/19/19 01/17/19 Rx 40mg Furosemide [Lasix TAB] 40 mg PO BID 01/19/19 01/19/19 01/17/19 History 40 mg Gabapentin [Neurontin] 300 mg PO TID 01/19/19 01/19/19 01/17/19 History 300mg Hydralazine HCl 50 mg PO TID 01/19/19 01/21/19 01/17/19 History 50 MG Isosorbide Dinitrate 30 mg PO QDAY 01/19/19 01/19/19 01/17/19 History 30 mg Lispro Insulin [Humalog] 15 unit SQ AC 01/19/19 01/21/19 01/17/19 History 15 u Metaxalone 30 mg PO INTRAOP 01/19/19 01/19/19 01/17/19 History 30mg Sitagliptin Phosphate [Januvia] 100 mg PO DAILY #30 tablet 01/22/19 Unknown Rx Active Meds: Active Medications Acetaminophen (Tylenol) 650 mg PO Q4H PRN PRN Reason: Headache Last Admin: 01/19/19 08:43 Dose: 650 mg Documented by: Dextrose (D50w (25gm) Syringe) 50 ml IV PRN PRN PRN Reason: Hypoglycemia Gabapentin (Neurontin) 300 mg PO BID [facility] Last Admin: 01/21/19 09:46 Dose: 300 mg Documented by: Heparin Sodium (Porcine) (Heparin) 5,000 unit SUB-Q Q12HR [facility] Last Admin: 01/21/19 09:47 Dose: 5,000 unit Documented by: Hydralazine HCl (Apresoline) 10 mg IV Q4HR PRN PRN Reason: Blood Pressure Hydromorphone HCl (Dilaudid) 1 mg IV Q3H PRN PRN Reason: Pain , Severe (7-10) Ceftriaxone Sodium (Rocephin/Ns 1 Gm/50 Ml) 1 gm in 50 mls @ 100 mls/hr IV Q24H [facility]; Protocol Last Admin: 01/21/19 09:52 Dose: 100 mls/hr Documented by: Sodium Chloride (Nacl 0.9% 1000 Ml) 1,000 mls @ 100 mls/hr IV DIRECT [facility] Last Admin: 01/21/19 05:17 Dose: 100 mls/hr Documented by: Insulin Glargine (Lantus) 30 units SUB-Q QAMDIAB [facility] Last Admin: 01/21/19 09:51 Dose: 30 units Documented by: Insulin Human Lispro (Humalog) 0 unit SUB-Q ACHS [facility]; Protocol Last Admin: 01/21/19 13:34 Dose: 10 unit Documented by: Isosorbide Mononitrate (Imdur) 30 mg PO DAILY [facility] Last Admin: 01/21/19 09:46 Dose: 30 mg Documented by: Labetalol HCl (Normodyne) 200 mg PO BID [facility] Last Admin: 01/21/19 09:46 Dose: 200 mg Documented by: Ondansetron HCl (Zofran) 4 mg IV Q8H PRN PRN Reason: Nausea And Vomiting Last Admin: 01/21/19 05:17 Dose: 4 mg Documented by: Pantoprazole Sodium (Protonix) 40 mg PO QDAY [facility] Last Admin: 01/21/19 09:45 Dose: 40 mg Documented by: Pravastatin Sodium (Pravachol) 80 mg PO QHS [facility] Last Admin: 01/20/19 21:22 Dose: 80 mg Documented by: medications reviewed/updated as required Review of Systems - Review of Systems All systems: negative Cardiovascular: chest pain Gastrointestinal: abdominal pain (epigastric), nausea, vomiting Exam - Constitutional Vital Signs: Temp Pulse Resp BP Pulse Ox 97.8 F 71 20 124/70 98 01/21/19 12:25 01/21/19 12:25 01/21/19 12:25 01/21/19 12:25 01/21/19 12:25 General appearance: no acute distress, obese - Respiratory Respiratory: bilateral: CTA - Cardiovascular Rhythm: regular - Gastrointestinal General gastrointestinal: Present: soft, tender (slight TTP in epigastric area), non-distended, normal bowel sounds, other (obese) - Neurologic Neurological: alert and oriented x3 - Labs CBC & Chem 7: 01/21/19 05:11 01/21/19 05:11 Lab Results: Laboratory Results - last 24 hr 01/20/19 01/20/19 01/21/19 17:05 20:47 05:11 WBC 6.4 RBC 3.51 L Hgb 8.0 L Hct 25.2 L MCV 72 L MCH 23 L MCHC 32 RDW 18.2 H Plt Count 216 Sodium Potassium Chloride Carbon Dioxide Anion Gap BUN Creatinine Estimated GFR BUN/Creatinine Ratio Glucose POC Glucose 360 H 419 H Hemoglobin A1c Calcium 01/21/19 01/21/19 01/21/19 05:11 05:11 12:28 WBC RBC Hgb Hct MCV MCH MCHC RDW Plt Count Sodium 134 L Potassium 3.5 L Chloride 95.1 L Carbon Dioxide 25 Anion Gap 17 BUN 45 H Creatinine 2.7 H Estimated GFR 23 BUN/Creatinine Ratio 17 Glucose 397 H POC Glucose 383 H Hemoglobin A1c 13.7 H Calcium 8.7 Assessment and Plan 1.epigastric pain 2.N/V 3.atypical CP 4.uncontrolled DM/DKA 5.H/o gastroparesis -afebrile -WBC, lipase, and LFTs WNL -abd CT showed small nonobstructing left renal calculi and residual stool -s/p CCY -last EGD 11/29/2018 showed retained food in stomach c/w gastroparesis -etiology- most likely 2/2 gastroparesis (CP likely 2/2 esophagitis from recent vomiting) -clinically, patient reports feeling better with abd pain/CP improving and no vomiting. Has some continued nausea but ate almost 100% of her food on the tray for lunch. -no plan for repeat scope at this time -continue PPI -avoid narcotics -consider a trial of short term ativan is nausea persists -optimize glycemic control- A1C 13.7 -small/frequent meals -recommend nutrition consult for dietary education -continue supportive care -recommend patient f/u with primary GI upon discharge -no further recommendations per GI standpoint at this time -will sign off, please call if needed 6.chronic anemia -H/H 8.0/25.2-stable compared to previous labs (H/H 8.4/26.8 at [facility] 11/2018) -no active signs of bleeding -last colonoscopy in 2012 that showed hemorrhoids -last EGD as above -no further workup recommended at this time unless overt bleeding develops 7.HTN urgency 8.ALICIA - <MELISA SHERMAN - Last Filed: 01/22/19 11:59> Medications and Allergies Active Meds: Active Medications Acetaminophen (Tylenol) 650 mg PO Q4H PRN PRN Reason: Headache Last Admin: 01/19/19 08:43 Dose: 650 mg Documented by: Acetaminophen/Hydrocodone Bitart ([place] 5/325) 1 each PO Q4H PRN PRN Reason: Pain, Moderate (4-6) Last Admin: 01/22/19 00:48 Dose: 1 each Documented by: Dextrose (D50w (25gm) Syringe) 50 ml IV PRN PRN PRN Reason: Hypoglycemia Gabapentin (Neurontin) 300 mg PO BID [facility] Last Admin: 01/22/19 11:37 Dose: 300 mg Documented by: Heparin Sodium (Porcine) (Heparin) 5,000 unit SUB-Q Q12HR [facility] Last Admin: 01/22/19 11:46 Dose: Not Given Documented by: Hydralazine HCl (Apresoline) 10 mg IV Q4HR PRN PRN Reason: Blood Pressure Ceftriaxone Sodium (Rocephin/Ns 1 Gm/50 Ml) 1 gm in 50 mls @ 100 mls/hr IV Q24H [facility]; Protocol Last Admin: 01/22/19 11:46 Dose: Not Given Documented by: Sodium Chloride (Nacl 0.9% 1000 Ml) 1,000 mls @ 100 mls/hr IV DIRECT [facility] Last Admin: 01/21/19 18:16 Dose: 100 mls/hr Documented by: Insulin Glargine (Lantus) 40 units SUB-Q QAMDIAB [facility] Last Admin: 01/22/19 09:20 Dose: 40 units Documented by: Insulin Human Lispro (Humalog) 0 unit SUB-Q ACHS [facility]; Protocol Last Admin: 01/22/19 08:30 Dose: 4 unit Documented by: Insulin Human Lispro (Humalog) 5 unit SUB-Q QHS [facility] Last Admin: 01/21/19 21:42 Dose: 5 unit Documented by: Isosorbide Mononitrate (Imdur) 30 mg PO DAILY [facility] Last Admin: 01/22/19 11:38 Dose: 30 mg Documented by: Labetalol HCl (Normodyne) 200 mg PO BID [facility] Last Admin: 01/22/19 11:37 Dose: 200 mg Documented by: Ondansetron HCl (Zofran) 4 mg IV Q8H PRN PRN Reason: Nausea And Vomiting Last Admin: 01/21/19 14:26 Dose: 4 mg Documented by: Pantoprazole Sodium (Protonix) 40 mg PO QDAY [facility] Last Admin: 01/22/19 11:37 Dose: 40 mg Documented by: Pravastatin Sodium (Pravachol) 80 mg PO QHS [facility] Last Admin: 01/21/19 21:38 Dose: 80 mg Documented by: Exam - Constitutional Vital Signs: Temp Pulse Resp BP Pulse Ox 98.1 F 94 H 20 154/76 100 01/22/19 06:19 01/22/19 11:37 01/22/19 06:19 01/22/19 11:37 01/22/19 06:19 - Labs CBC & Chem 7: 01/21/19 05:11 01/22/19 06:52 Lab Results: Laboratory Results - last 24 hr 01/21/19 01/21/19 01/21/19 12:28 16:58 21:41 Sodium Potassium Chloride Carbon Dioxide Anion Gap BUN Creatinine Estimated GFR BUN/Creatinine Ratio Glucose POC Glucose 383 H 325 H 310 H Calcium 01/22/19 06:52 Sodium 139 Potassium 3.5 L Chloride 101.2 Carbon Dioxide 26 Anion Gap 15 BUN 32 H Creatinine 2.5 H Estimated GFR 25 BUN/Creatinine Ratio 13 Glucose 238 H POC Glucose Calcium 9.0 Assessment and Plan Pt seen and examined on 01/21. [facility] records reviewed. Suspect pt has primarily functional or neuropathic symptoms. When seen, she had finished her regular diet dinner without problems. Did complain of ongoing nausea. - advised her that narcotics would worsen her problem, and that she likely had chronic damage from DM, and might benefit from other neuromodulators. - pt did not seem very happy with recommendations. Given that she is taking adequate po well, and looked quite comfortable in bed, no further inpatient GI evaluation planned. She may f/u as outpatient with her GI MD. Will sign off. Thanks.
[2019-01-21] MEDS ORDERED: LANTUS SUB-Q ONE (20:00)
[2019-01-21] MEDS: PRAVACHOL PO SCH (21:38)
[2019-01-21] MEDS ORDERED: HumaLOG SUB-Q SCH (22:00)
[2019-01-22] MEDS ORDERED: NORCO 5/325 PO PRN (00:27)
--- NOTE | 2019-01-22 07:58 | Progress Note ---
Assessment and Plan 1. Acute kidney injury: DEWAYNE superimposed on CKD stage 3 in the setting of DKA. CT abdomen was negative for hydronephrosis. Renal function continue to improve. Encouraged PO fluids. Avoid nephrotoxic agents. Meds dosage based on GFR. 2. FEN: Volume depletion, improved. Hypokalemia, replete K. Monitor lytes. 3. DKA: Off Insulin drip. 4. Chest pain: Followed by cards. 5. Anemia: Present on admission. 6. HTN. Patient has an appt with me next week. Subjective Date of service: 01/22/19 Principal diagnosis: SOB Interval history: Patient is feeling better. Objective - Vital Signs Vital signs: Vital Signs - 12hr 01/21/19 01/21/19 01/22/19 21:32 21:38 06:19 Temperature 98.0 F 98.1 F Pulse Rate 78 78 70 Respiratory 18 20 Rate Blood Pressure 146/71 Blood Pressure 146/71 142/59 [Left] O2 Sat by Pulse 100 Oximetry - General Appearance General appearance: well-developed, well-nourished, appears stated age, obese, other (not in distress) EENT: ATNC, PERRL, hearing intact, vision intact Neck: supple Respiratory: Present: Clear to Ascultation Cardiology: regular, S1S2, no murmurs Gastrointestinal: normoactive bowel sounds, no tenderness, no distended, obese Integumentary: no rash, warm and dry Neurologic: no focal deficit, no asterixis, alert and oriented x3 Musculoskeletal: other (no edema) - Lab 01/21/19 05:11 01/22/19 06:52 Most recent lab results Calcium 9.0 mg/dL (8.4-10.2) 01/22/19 06:52 Phosphorus 3.30 mg/dL (2.5-4.5) 01/19/19 08:29 Magnesium 2.40 mg/dL (1.7-2.3) H 01/18/19 11:23 Urine Creatinine 87.5 mg/dL (0.1-20.0) H 01/18/19 09:44 Urine Sodium 25 mmol/L 01/18/19 09:44 Medications & Allergies - Medications Allergies/Adverse Reactions: Allergies metoclopramide HCl [From Reglan] Allergy (Verified 01/17/19 15:50) Swelling morphine Allergy (Verified 01/17/19 15:50) Itching oxycodone HCl [From Percocet] Allergy (Verified 01/17/19 15:50) Swelling shellfish derived Allergy (Verified 01/17/19 15:50) Swelling Home Medications: Home Medications Medication Instructions Recorded Confirmed Last Taken Type Insulin Glargine,Hum.rec.anlog 40 unit SQ QHS #30 insuln.pen 03/19/17 01/19/19 01/17/19 Rx [Lantus Solostar] Simvastatin [Zocor TAB] 40 mg PO DAILY #30 tablet 03/19/17 01/19/19 01/17/19 Rx 40mg Furosemide [Lasix TAB] 40 mg PO BID 01/19/19 01/19/19 01/17/19 History 40 mg Gabapentin [Neurontin] 300 mg PO TID 01/19/19 01/19/19 01/17/19 History 300mg Hydralazine HCl 50 mg PO TID 01/19/19 01/21/19 01/17/19 History 50 MG Isosorbide Dinitrate 30 mg PO QDAY 01/19/19 01/19/19 01/17/19 History 30 mg Lispro Insulin [Humalog] 15 unit SQ AC 01/19/19 01/21/19 01/17/19 History 15 u Metaxalone 30 mg PO INTRAOP 01/19/19 01/19/19 01/17/19 History 30mg Sitagliptin Phosphate [Januvia] 100 mg PO DAILY #30 tablet 01/22/19 Unknown Rx Active Medications: Generic Name Dose Route Start Last Admin Trade Name Freq PRN Reason Stop Dose Admin Acetaminophen 650 mg 01/17/19 21:56 01/19/19 08:43 Tylenol PO 650 mg Q4H PRN Administration Headache Acetaminophen/Hydrocodone Bitart 1 each 01/22/19 00:27 01/22/19 00:48 [place] 5/325 PO 1 each Q4H PRN Administration Pain, Moderate (4-6) Dextrose 50 ml 01/19/19 07:51 D50w (25gm) Syringe IV PRN PRN Hypoglycemia Gabapentin 300 mg 01/20/19 10:00 01/21/19 21:39 Neurontin PO 300 mg BID KE Administration Heparin Sodium (Porcine) 5,000 unit 01/20/19 14:00 01/21/19 21:39 Heparin SUB-Q 5,000 unit Q12HR KE Administration Hydralazine HCl 10 mg 01/19/19 11:34 Apresoline IV Q4HR PRN Blood Pressure Ceftriaxone Sodium 1 gm in 50 mls @ 100 mls/hr 01/19/19 09:00 01/21/19 09:52 Rocephin/Ns 1 Gm/50 Ml IV 100 mls/hr Q24H [facility] Administration Protocol Sodium Chloride 1,000 mls @ 100 mls/hr 01/19/19 08:00 01/21/19 18:16 Nacl 0.9% 1000 Ml IV 100 mls/hr DIRECT [facility] Administration Insulin Glargine 40 units 01/22/19 08:00 Lantus SUB-Q QAMDIAB KE Insulin Human Lispro 0 unit 01/19/19 08:00 01/21/19 21:48 Humalog SUB-Q 8 unit ACHS KE Administration Protocol Insulin Human Lispro 5 unit 01/21/19 22:00 01/21/19 21:42 Humalog SUB-Q 5 unit QHS KE Administration Isosorbide Mononitrate 30 mg 01/19/19 10:00 01/21/19 09:46 Imdur PO 30 mg DAILY [facility] Administration Labetalol HCl 200 mg 01/19/19 11:00 01/21/19 21:38 Normodyne PO 200 mg BID KE Administration Ondansetron HCl 4 mg 01/17/19 21:57 01/21/19 14:26 Zofran IV 4 mg Q8H PRN Administration Nausea And Vomiting Pantoprazole Sodium 40 mg 01/20/19 10:00 01/21/19 09:45 Protonix PO 40 mg QDAY KE Administration Pravastatin Sodium 80 mg 01/19/19 22:00 01/21/19 21:38 Pravachol PO 80 mg QHS KE Administration
[2019-01-22] MEDS ORDERED: LANTUS SUB-Q SCH (08:00)
[2019-01-22] MEDS ORDERED: K-DUR PO NR (08:30)
[2019-01-22] MEDS: HumaLOG SUB-Q SCH ×2 (08:30→13:06)
--- NOTE | 2019-01-22 10:55 | Discharge Summary ---
Providers - Providers Date of Admission: 01/17/19 21:47 Date of discharge: 01/22/19 Attending physician: JOSUÉ GRANDE 01/17/19 22:02 Consult to Physician [CONS] Routine Comment: Consulting Provider: PATO MARIANO Physician Instructions: Reason For Exam: ICU ADMISSION FOR INSULIN DRIP 01/21/19 12:47 Consult to Physician [CONS] Routine Comment: Consulting Provider: KIERA CARTER Physician Instructions: Reason For Exam: persistent nausea, ?gastroparesis, chest pains Primary care physician: LYUDMILA PINEDA Hospitalization Reason for admission: Acute on chronic kidney injury, DKA, Anemia of chronic disease, Condition: Stable Pertinent studies: CT abdomen and pelvis showed nonobstructing left renal calculi Chest x-ray no evidence of acute pulmonary process Procedures: none Hospital course: Patient is a 48 y/o female with PMH of HTN, DM (uncontrolled), gastroparesis, dyslipidemia, neuropathy, pseudotumor cerebri, chronic anemia, and TIA who presented to ED with c/o abdominal pain, N/V, weakness and CP. Upon admission, blood glucose was found to be >700 and she was admitted with DKA, ALICIA, acute metabolic encephalopathy, and hypertensive urgency. She was evaluated by cardiology for CP with work up negative for ischemia. GI has been consulted for N/V, gastroparesis and atypical CP. Patient is previously known to our service and has had multiple prior hospitalizations for similar symptoms. She was last seen by our group at [facility] in November of this year but is normally followed by Dr. Lee at [facility]. She underwent an EGD on 11/29/2018 that showed retained food in the stomach c/w gastroparesis. Last colonoscopy in 2012 that showed hemorrhoids. Started having acute distress after lunch was resting in bed w/o acute distress finishing up eating lunch which she ate almost 100% of the food. Reports feeling better with epigastric/CP improving and no vomiting today but has some continued nausea. Denies wt loss, fever, SOB, or signs of bleeding. No NSAID use. S/p CCY. Allergic to Reglan 2/2 tardive dyskinesia. Abdominal pain nausea vomiting resolved. Elevated BUN/creatinine identified. Nephrology consult was obtained. Gentle IV hydration commenced. BUN and creatinine perverted to baseline levels Disposition: TO HOME OR SELFCARE Time spent for discharge: 40 mins - Discharge Diagnoses (1) Acute on chronic renal failure Status: Acute (2) Chest pain Status: Acute (3) Diabetic gastroparesis Status: Acute (4) Elevated troponin Status: Acute (5) Hyperglycemia Status: Acute (6) Hypokalemia Status: Acute (7) DEWAYNE (acute kidney injury) Status: Acute Core Measure Documentation - Palliative Care Palliative Care/ Comfort Measures: Not Applicable - Core Measures Any of the following diagnoses?: none Exam - Physical Exam Narrative exam: Constitutional: Well-nourished well-developed. In no distress Head: Normocephalic atraumatic Eyes: Pupils are equal round and reactive to light Nose: No enlarged turbinates, no septal deviation. Mouth: Moist mucous membranes. Neck: Supple no thyromegaly. No bruit. No JVD Heart: Regular rate and rhythm, S1-S2 normal. No rubs murmurs or gallop Lungs: Clear to auscultation bilaterally. no rales or rhonchi Abdomen: Soft, nontender. Bowel sound are present. Extremities: No edema, no cyanosis, no clubbing. Neuro: Alert oriented Oriented x3. No focal sensory or motor deficit. Skin: No rashes or hyperpigmented spots Musculoskeletal system: No joint pain or swelling Hematological: No petechia or subcutanous hemorrhages. Immunological: No multiple septic spots on the skin Lymphatic: No generalized lymphadenopathy Psychiatry: Euthymic. Calm. - Constitutional Vitals: Temp Pulse Resp BP Pulse Ox 98.1 F 70 20 142/59 100 01/22/19 06:19 01/22/19 06:19 01/22/19 06:19 01/22/19 06:01/22/19 06:19 Plan Activity: fall precautions Weight Bearing Status: Weight Bear as Tolerated Diet: diabetic Follow up with: MARLON LAINEZ MD [Referring] - 3-5 Days Prescriptions: Sitagliptin Phosphate [Januvia] 100 mg PO DAILY #30 tablet
[2019-01-22] MEDS: NORMODYNE PO SCH (11:37)
[2019-01-22] MEDS: PROTONIX PO SCH (11:37)
[2019-01-22] MEDS: NEURONTIN PO SCH (11:37)
[2019-01-22] MEDS: IMDUR PO SCH (11:38)
[2019-01-22] MEDS: HEPARIN SUB-Q SCH (11:46)
[2019-01-22] MEDS: ROCEPHIN/NS 1 GM/50 ML 1 GM/50 ML BAG IV SCH (11:46)
[2019-01-22 13:27] VITALS: BP 141/72
== END 2019-01-22 13:20 | disposition home or self-care (01) | DRG 682 ==
LOC: ED 15:44 → CC1 21:47 → 3A 01-19 14:44
PROVIDERS: ADMIT Internal Medicine; ATTEND Family Medicine
DX: N17.0 Acute kidney failure with tubular necrosis (principal); G93.41 Metabolic encephalopathy; E11.10 Type 2 diabetes mellitus with ketoacidosis without coma; N39.0 Urinary tract infection, site not specified; I13.0 Hypertensive heart and chronic kidney disease with heart failure and stage 1 through stage 4 chronic kidney disease, or unspecified chronic kidney disease; E11.43 Type 2 diabetes mellitus with diabetic autonomic (poly)neuropathy; K31.84 Gastroparesis; E87.6 Hypokalemia; N18.9 Chronic kidney disease, unspecified; E11.22 Type 2 diabetes mellitus with diabetic chronic kidney disease; D53.9 Nutritional anemia, unspecified; E86.9 Volume depletion, unspecified; I16.0 Hypertensive urgency; I50.9 Heart failure, unspecified; E66.9 Obesity, unspecified; Z68.35 Body mass index [BMI] 35.0-35.9, adult; Z86.73 Personal history of transient ischemic attack (TIA), and cerebral infarction without residual deficits; Z88.5 Allergy status to narcotic agent; Z91.013 Allergy to seafood; Z79.899 Other long term (current) drug therapy; Z90.49 Acquired absence of other specified parts of digestive tract; Z89.411 Acquired absence of right great toe
CPT/HCPCS: 36415; 71045; 71046; 74176; 80048; 80053; 80061; 80307; 81001; 81025; 82550; 82553; 82570; 82805; 82947; 82962; 83036; 83690; 83735; 83880; 84100; 84300; 84484; 84520; 84703; 85014; 85018; 85025; 85027; 85049; 85520; 85610; 85730; 87086; 89050; 93005; 93010; G0378; A9270-GY; C9113; J0360; J0696; J1170; J1644; J1815; J2405; J3480; J7030; J7040

== ENCOUNTER 2019-01-27 09:36 | Outpatient (CLI) | payer BC ==
[2019-01-27 10:44] LABS: Alanine Aminotransferase 28 units/L (7-56); Albumin 3.3 g/dL (3.9-5); BUN/Creatinine Ratio 19; Blood Urea Nitrogen 56 mg/dL (7-17); Hemolysis Index 28
== END 2019-01-27 09:37 | disposition home or self-care (01) ==
LOC: LAB 09:36
PROVIDERS: ATTEND Internal Medicine Nephrology
DX: I13.0 Hypertensive heart and chronic kidney disease with heart failure and stage 1 through stage 4 chronic kidney disease, or unspecified chronic kidney disease (principal); I50.9 Heart failure, unspecified; N18.3 Chronic kidney disease, stage 3 (moderate); E78.00 Pure hypercholesterolemia, unspecified; Z90.49 Acquired absence of other specified parts of digestive tract
CPT/HCPCS: 36415; 80053; 84100

== ENCOUNTER 2019-05-23 15:30 | Emergency (ER) | payer OTHER, BC ==
[2019-05-23 16:04] VITALS: BP 155/83
[2019-05-23] MEDS ORDERED: FLEXERIL PO ONE (17:21)
[2019-05-23] MEDS ORDERED: TORADOL IM ONE (17:21)
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
== END 2019-05-23 18:45 | disposition home or self-care (01) ==
LOC: ED 15:30
DX: M54.2 Cervicalgia (principal); M54.5 Low back pain; M79.10 Myalgia, unspecified site; I11.0 Hypertensive heart disease with heart failure; I50.9 Heart failure, unspecified; E11.40 Type 2 diabetes mellitus with diabetic neuropathy, unspecified; Z86.73 Personal history of transient ischemic attack (TIA), and cerebral infarction without residual deficits; Z88.8 Allergy status to other drugs, medicaments and biological substances; Z91.013 Allergy to seafood; Z79.899 Other long term (current) drug therapy; Z79.4 Long term (current) use of insulin; Z79.1 Long term (current) use of non-steroidal anti-inflammatories (NSAID); Z90.49 Acquired absence of other specified parts of digestive tract; Z89.411 Acquired absence of right great toe; Z88.5 Allergy status to narcotic agent; V89.2XXA Person injured in unspecified motor-vehicle accident, traffic, initial encounter; Y93.89 Activity, other specified; Y92.488 Other paved roadways as the place of occurrence of the external cause; Y99.8 Other external cause status
CPT/HCPCS: 96372; 99282; J1885

== ENCOUNTER 2019-06-23 08:48 | Outpatient (CLI) | payer BC ==
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
== END 2019-06-23 08:49 | disposition home or self-care (01) ==
LOC: XRAY 08:48
DX: Z04.1 Encounter for examination and observation following transport accident (principal); I11.0 Hypertensive heart disease with heart failure; I50.9 Heart failure, unspecified; E78.00 Pure hypercholesterolemia, unspecified; V89.2XXD Person injured in unspecified motor-vehicle accident, traffic, subsequent encounter
CPT/HCPCS: 72050; 72072; 72110

== ENCOUNTER 2019-11-24 12:02 | Emergency (ER) | payer BC ==
[2019-11-24 13:07] VITALS: BP 180/92
[2019-11-24 13:48] LABS: Basophils # (Auto) 0.1 K/mm3 (0.0-0.1); Basophils % (Auto) 0.9 % (0.0-1.8); Eosinophils # (Auto) 0.1 K/mm3 (0.0-0.4); Eosinophils % (Auto) 0.9 % (0.0-4.3); Hematocrit 37.1 % (30.3-42.9); Hemoglobin 12.1 gm/dl (10.1-14.3); Lymphocytes # (Auto) 1.8 K/mm3 (1.2-5.4); Lymphocytes % (Auto) 22.3 % (13.4-35.0); Mean Corpuscular HGB Conc 33 % (30-34); Mean Corpuscular Volume 80 fl (79-97); Monocytes # (Auto) 0.5 K/mm3 (0.0-0.8); Monocytes % (Auto) 6.1 % (0.0-7.3); Platelet Count 251 K/mm3 (140-440); Red Blood Count 4.62 M/mm3 (3.65-5.03); Red Cell Distribution Width 17.7 % (13.2-15.2)
[2019-11-24 14:05] LABS: Alanine Aminotransferase 13 units/L (7-56); BUN/Creatinine Ratio 16; Blood Urea Nitrogen 54 mg/dL (7-17); Calcium 9.2 mg/dL (8.4-10.2); Hemolysis Index 16
== END 2019-11-24 18:14 | disposition left against medical advice (07) ==
LOC: ED 12:02
DX: R10.10 Upper abdominal pain, unspecified (principal); Z53.21 Procedure and treatment not carried out due to patient leaving prior to being seen by health care provider
CPT/HCPCS: 36415; 80053; 83690; 85025; 99283

== ENCOUNTER 2019-11-25 10:37 | Emergency (ER) | payer BC ==
--- NOTE | 2019-11-25 13:10 | Event Note ---
ED Screening Note Date of service: 11/25/19 Time: 13:08 ED Screening Note: 49 y o f presents with abd pain with n/d x 2 days This initial assessment/diagnostic orders/clinical plan/treatment(s) is/are subject to change based on patients health status, clinical progression and re- assessment by fellow clinical providers in the ED. Further treatment and workup at subsequent clinical providers discretion. Patient/guardian urged not to elope from the ED as their condition may be serious if not clinically assessed and managed. Initial orders include: labs. ua
[2019-11-25 13:49] LABS: Bacteria,Urine 1+ /HPF (Negative); Bilirubin,Urine NEG (Negative); Blood,Urine NEG (Negative); Color,Urine Straw (Yellow); Urobilinogen,Urine < 2.0 mg/dL (<2.0)
[2019-11-25 14:08] LABS: Hematocrit 39.2 % (30.3-42.9); Hemoglobin 12.8 gm/dl (10.1-14.3); Mean Corpuscular HGB Conc 33 % (30-34); Mean Corpuscular Volume 80 fl (79-97); Platelet Count 258 K/mm3 (140-440); Red Blood Count 4.89 M/mm3 (3.65-5.03); Red Cell Distribution Width 17.8 % (13.2-15.2)
[2019-11-25 14:29] LABS: Calcium 9.7 mg/dL (8.4-10.2)
[2019-11-25] MEDS ORDERED: SODIUM CHLORIDE 0.9% 1000 ML 1,000 ML IV ONE ×2 (14:34→15:10)
[2019-11-25] MEDS ORDERED: ONDANSETRON 4 MG/2 ML INJ IV ONE (14:35)
[2019-11-25 14:53] LABS: Anisocytosis 1+; Basophils % (Manual) 0 % (0.0-1.8); Platelet Estimate Consistent w Auto; Total Cells Counted 100
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
[2019-11-25] MEDS ORDERED: INSULIN REGULAR, HUMAN 100 UNITS/1 ML IV ONE (15:10)
[2019-11-25] MEDS ORDERED: HYDROcodone/ACETAMINOPHEN 5-325 MG TAB PO ONE (15:20)
[2019-11-25] MEDS ORDERED: DICYCLOMINE 20 MG TAB PO ONE (16:51)
[2019-11-25 18:14] VITALS: BP 196/105
== END 2019-11-25 18:12 | disposition home or self-care (01) ==
LOC: ED 10:37
DX: K31.84 Gastroparesis (principal); E11.00 Type 2 diabetes mellitus with hyperosmolarity without nonketotic hyperglycemic-hyperosmolar coma (NKHHC); R11.2 Nausea with vomiting, unspecified; N19 Unspecified kidney failure; I11.0 Hypertensive heart disease with heart failure; I50.9 Heart failure, unspecified; E11.9 Type 2 diabetes mellitus without complications; Z90.49 Acquired absence of other specified parts of digestive tract; Z98.890 Other specified postprocedural states; Z79.1 Long term (current) use of non-steroidal anti-inflammatories (NSAID); Z79.899 Other long term (current) drug therapy; Z88.4 Allergy status to anesthetic agent; Z88.8 Allergy status to other drugs, medicaments and biological substances; Z91.013 Allergy to seafood
CPT/HCPCS: 36415; 80053; 81001; 82805; 82962; 85007; 85025; 96361; 96374; 96375; 99284; J2405; J7030; J1815

== ENCOUNTER 2020-04-05 09:23 | Outpatient (CLI) | payer BC ==
[2020-04-05 10:30] LABS: Albumin 3.5 g/dL (3.9-5); Calcium 9.1 mg/dL (8.4-10.2)
[2020-04-07 21:59] LABS: ANA Screen, IFA Negative (Negative)
== END 2020-04-05 09:24 | disposition home or self-care (01) ==
LOC: LAB 09:23
PROVIDERS: ATTEND Internal Medicine Nephrology
DX: N18.4 Chronic kidney disease, stage 4 (severe) (principal)
CPT/HCPCS: 36415; 80048; 82040; 84100; 86038

== ENCOUNTER 2020-07-20 09:43 | Outpatient (CLI) | payer BC ==
[2020-07-20 10:46] LABS: Albumin 3.7 g/dL (3.9-5); Calcium 9.5 mg/dL (8.4-10.2)
== END 2020-07-20 09:44 | disposition home or self-care (01) ==
LOC: LAB 09:43
PROVIDERS: ATTEND Internal Medicine Nephrology
DX: N18.4 Chronic kidney disease, stage 4 (severe) (principal)
CPT/HCPCS: 36415; 80048; 82040; 84100; 86038

== ENCOUNTER 2021-04-08 05:57 | Day surgery (SDC) | payer BC ==
[~2021-04-08 05:57] MED LIST: BUPIVACAINE/PF (0.5%) 5 MG/1 ML 30 ML VIAL INFILTRATI ONE; HEPARIN 10,000 UNITS/10 ML VIAL IV ONE; SODIUM CHLORIDE 0.9% 500 ML IVPB IV ONE; SODIUM CHLORIDE 0.9% P/F 10 ML VIAL IV ONE; rifAMPin 600 MG VIAL IV ONE
[2021-04-08] MEDS ORDERED: ceFAZolin/STERILE WATER 2 GM/20 ML SYRINGE IV NR (06:00)
[2021-04-08] MEDS ORDERED: SODIUM CHLORIDE 0.9% 1000 ML 1,000 ML ONE (06:07)
[2021-04-08 07:06] LABS: Hematocrit 37.2 % (30.3-42.9); Hemoglobin 11.9 gm/dl (10.1-14.3); Mean Corpuscular HGB Conc 32 % (30-34); Mean Corpuscular Volume 84 fl (79-97); Platelet Count 205 K/mm3 (140-440); Red Blood Count 4.43 M/mm3 (3.65-5.03); Red Cell Distribution Width 16.4 % (13.2-15.2)
[2021-04-08] MEDS ORDERED: SODIUM CHLORIDE P/F VIAL 10 ML 0 ML ONE (07:15)
[2021-04-08] MEDS ORDERED: BUPIVACAINE/PF (0.5%) 5 MG/1 ML 30 ML VIAL INFILTRATI ONE (07:15)
[2021-04-08] MEDS ORDERED: HEPARIN 10,000 UNITS/10 ML VIAL ONE (07:15)
[2021-04-08] MEDS ORDERED: SODIUM CHLORIDE 0.9% 500 ML 500 ML ONE (07:16)
[2021-04-08] MEDS ORDERED: SODIUM CHLORIDE 0.9% 250ML 0 ML ONE (07:16)
[2021-04-08] MEDS ORDERED: rifAMPin 600 MG VIAL ONE (07:16)
[2021-04-08 07:23] LABS: Calcium 8.9 mg/dL (8.4-10.2)
--- NOTE | 2021-04-08 07:40 | Event Note ---
Date: 04/08/21 (PREOP) Patient here for surgery. Blood sugar is 442 and it's been running high for the past two weeks she states. Will defer surgery until BS is under better control.
[2021-04-08 08:31] VITALS: BP 149/79
[2021-04-08] MEDS ORDERED: SODIUM CHLORIDE 0.9% 1000 ML 1,000 ML IV SCH (09:00)
== END 2021-04-08 05:58 | disposition home or self-care (01) ==
LOC: OR 05:57
PROVIDERS: ATTEND Surgery Vascular Surgery
DX: I13.2 Hypertensive heart and chronic kidney disease with heart failure and with stage 5 chronic kidney disease, or end stage renal disease (principal); N18.6 End stage renal disease; I50.9 Heart failure, unspecified; G62.9 Polyneuropathy, unspecified; E78.00 Pure hypercholesterolemia, unspecified; K21.9 Gastro-esophageal reflux disease without esophagitis; D64.9 Anemia, unspecified; M19.90 Unspecified osteoarthritis, unspecified site; Z53.8 Procedure and treatment not carried out for other reasons; Z98.51 Tubal ligation status; Z90.49 Acquired absence of other specified parts of digestive tract; Z98.890 Other specified postprocedural states; Z80.8 Family history of malignant neoplasm of other organs or systems; Z87.440 Personal history of urinary (tract) infections; Z99.2 Dependence on renal dialysis; Z86.73 Personal history of transient ischemic attack (TIA), and cerebral infarction without residual deficits; Z82.49 Family history of ischemic heart disease and other diseases of the circulatory system
CPT/HCPCS: 36415; 80048; 82962; 85027; J1644; J7030; J7040; J0690; J3490; J7050

== ENCOUNTER 2021-04-12 08:31 | Day surgery (SDC) | payer BC ==
[~2021-04-12 08:31] MED LIST changes: -HEPARIN 10,000 UNITS/10 ML VIAL IV ONE; +HEPARIN 10,000 UNITS/10 ML VIAL ONE; +SODIUM CHLORIDE 0.9% 1000 ML 1,000 ML IV SCH; +SODIUM CHLORIDE 0.9% 250ML 0 ML ONE; +SODIUM CHLORIDE 0.9% 500 ML 0 ML ONE; -SODIUM CHLORIDE 0.9% 500 ML IVPB IV ONE; -SODIUM CHLORIDE 0.9% P/F 10 ML VIAL IV ONE; +ceFAZolin/STERILE WATER 2 GM/20 ML SYRINGE IV NR; +fentaNYL 100 MCG/2 ML INJ IV PRN; -rifAMPin 600 MG VIAL IV ONE; +rifAMPin 600 MG VIAL ONE
[2021-04-12] MEDS ORDERED: BUPIVACAINE/PF (0.25%) 2.5 MG/ML 30 ML VIAL INFILTRATI ONE (09:36)
[2021-04-12 09:49] LABS: Hematocrit 38.2 % (30.3-42.9); Hemoglobin 12.3 gm/dl (10.1-14.3); Mean Corpuscular HGB Conc 32 % (30-34); Mean Corpuscular Volume 83 fl (79-97); Platelet Count 209 K/mm3 (140-440); Red Cell Distribution Width 16.2 % (13.2-15.2)
[2021-04-12] MEDS: MIDAZOLAM 2 MG/2 ML INJ IV NR ×2 (10:13→10:31)
[2021-04-12] MEDS ORDERED: HEPARIN 10,000 UNITS/10 ML VIAL ONE (10:44)
[2021-04-12] MEDS ORDERED: SODIUM CHLORIDE P/F VIAL 10 ML 10 ML ONE (10:44)
[2021-04-12] MEDS ORDERED: SODIUM CHLORIDE 0.9% 500 ML 500 ML ONE (10:45)
[2021-04-12] MEDS ORDERED: SODIUM CHLORIDE 0.9% 250ML 250 ML ONE (10:45)
[2021-04-12] MEDS ORDERED: rifAMPin 600 MG VIAL ONE (10:45)
[2021-04-12] MEDS ORDERED: LIDOCAINE MPF (2%) 20 MG/1 ML VIAL 5 ML ONE (10:57)
[2021-04-12] MEDS ORDERED: ONDANSETRON 4 MG/2 ML INJ ONE (10:57)
[2021-04-12] MEDS ORDERED: fentaNYL 100 MCG/2 ML INJ ONE (10:57)
[2021-04-12] MEDS ORDERED: propofoL 200 MG/20 ML VIAL IV ONE ×2 (10:57→12:28)
[2021-04-12] MEDS ORDERED: SODIUM CHLORIDE 0.9% IRR 1,500 ML BOTTLE IR ONE (12:33)
[2021-04-12] MEDS ORDERED: HEPARIN 10,000 UNITS/10 ML VIAL IV ONE ×2 (12:33→12:35)
[2021-04-12] MEDS ORDERED: BUPIVACAINE/PF (0.5%) 5 MG/1 ML 30 ML VIAL INFILTRATI ONE (12:34)
[2021-04-12] MEDS ORDERED: rifAMPin 600 MG VIAL IV ONE (12:34)
[2021-04-12] MEDS ORDERED: SODIUM CHLORIDE 0.9% P/F 10 ML VIAL IV ONE (12:35)
[2021-04-12] MEDS ORDERED: SODIUM CHLORIDE 0.9% IRR 500 ML BOTTLE IR ONE (12:35)
[2021-04-12] MEDS ORDERED: PHENYLEPHRINE/NS 1,000 MCG/10 ML SYRINGE (OR USE) IV ONE (12:52)
[2021-04-12] MEDS ORDERED: HYDROcodone/ACETAMINOPHEN 5-325 MG TAB PO PRN (13:51)
[2021-04-12] MEDS ORDERED: HYDROmorphone 1 MG/1 ML INJ IV PRN (13:54)
[2021-04-12] MEDS ORDERED: diphenhydrAMINE 50 MG CAP PO SCH (14:00)
[2021-04-12 15:42] VITALS: BP 143/87
== END 2021-04-12 08:32 | disposition home or self-care (01) ==
LOC: OR 08:31
PROVIDERS: ATTEND Surgery Vascular Surgery
DX: I13.2 Hypertensive heart and chronic kidney disease with heart failure and with stage 5 chronic kidney disease, or end stage renal disease (principal); E11.22 Type 2 diabetes mellitus with diabetic chronic kidney disease; N18.6 End stage renal disease; I50.9 Heart failure, unspecified; G62.9 Polyneuropathy, unspecified; E78.00 Pure hypercholesterolemia, unspecified; K21.9 Gastro-esophageal reflux disease without esophagitis; E11.69 Type 2 diabetes mellitus with other specified complication; E11.43 Type 2 diabetes mellitus with diabetic autonomic (poly)neuropathy; E11.65 Type 2 diabetes mellitus with hyperglycemia; M19.90 Unspecified osteoarthritis, unspecified site; D64.9 Anemia, unspecified; Z80.8 Family history of malignant neoplasm of other organs or systems; Z90.49 Acquired absence of other specified parts of digestive tract; Z98.51 Tubal ligation status; Z98.890 Other specified postprocedural states; Z87.440 Personal history of urinary (tract) infections; Z88.8 Allergy status to other drugs, medicaments and biological substances; Z88.5 Allergy status to narcotic agent; Z91.013 Allergy to seafood; Z79.899 Other long term (current) drug therapy; Z82.49 Family history of ischemic heart disease and other diseases of the circulatory system
CPT/HCPCS: 36415; 36830; 64415; 80048; 81025; 82962; 85027; C1768; J0690; J1170; J1644; J2250; J2370; J2405; J2704; J3010; J3490; J7030; J7040; J7050; 64450

== ENCOUNTER 2022-02-16 14:36 | Emergency (ER) | payer BC, MEDICARE ==
[2022-02-16] MEDS ORDERED: KETOROLAC 30 MG/1 ML INJ IV ONE (14:55)
[2022-02-16] MEDS ORDERED: SODIUM CHLORIDE 0.9% 1000 ML 1,000 ML IV ONE (14:55)
[2022-02-16] MEDS ORDERED: ONDANSETRON 4 MG/2 ML INJ IV ONE (14:55)
--- NOTE | 2022-02-16 14:56 | Emergency Department Report ---
ED Abdominal Pain HPI - General Chief Complaint: Abdominal Pain Stated Complaint: ABD PAIN N/V PUI?: No Time Seen by Provider: 02/16/22 14:55 Source: patient Mode of arrival: Ambulatory Limitations: No Limitations - History of Present Illness MD Complaint: abdominal pain -: Gradual, days(s) Location: diffuse Severity scale (0 -10): 4 Quality: cramping Consistency: constant Improves With: nothing Worsens With: nothing Associated Symptoms: denies other symptoms, nausea, vomiting, diarrhea. denies: fever, chills, constipation, dysuria, hematemesis, hematochezia, melena, hematuria, anorexia, syncope - Related Data Home Medications Medication Instructions Recorded Confirmed Last Taken Furosemide [Lasix TAB] 80 mg PO BID 01/19/19 04/11/21 04/11/21 Gabapentin [Neurontin] 400 mg PO TID 01/19/19 04/11/21 04/11/21 Hydralazine HCl 100 mg PO TID 01/19/19 04/12/21 04/12/21 06:00 Lispro Insulin [HumaLOG] 15 unit SQ AC 01/19/19 04/11/21 04/11/21 Folic Acid/Vit B Complex and C 800 mcg PO DAILY 04/01/21 04/11/21 04/11/21 [Dialyvite 800 Chewable Wafer] ISOSORBIDE MONOnitrate [Imdur ER] 30 mg PO DAILY 04/01/21 04/11/21 04/11/21 Potassium Citrate ER 40 meq PO DAILY 04/01/21 04/11/21 04/11/21 Rosuvastatin Calcium [Crestor] 40 mg PO DAILY 04/01/21 04/11/21 04/11/21 Sitagliptin Phosphate [Januvia] 50 mg PO DAILY 04/01/21 04/11/21 04/11/21 Tresiba 35 mg PO HS 04/01/21 04/11/21 04/11/21 amLODIPine 10 mg PO DAILY 04/01/21 04/11/21 04/11/21 metOLazone [Zaroxolyn] 5 mg PO DAILY 04/01/21 04/11/21 04/11/21 Previous Rx's Medication Instructions Recorded Last Taken Type HYDROcodone/APAP 7.5-325 [[place] 1 each PO Q6HR PRN #40 tablet 04/12/21 Unknown Rx 7.5/325] Allergies Allergy/AdvReac Type Severity Reaction Status Date / Time carvedilol Allergy Hives Verified 11/24/19 12:03 metoclopramide HCl Allergy Swelling Verified 05/23/19 15:37 [From Reglan] morphine Allergy Itching Verified 05/23/19 15:37 oxycodone HCl [From Percocet] Allergy Swelling Verified 05/23/19 15:37 shellfish derived Allergy Swelling Verified 05/23/19 15:37 ED Review of Systems ROS: Stated complaint: ABD PAIN N/V Other details as noted in HPI Comment: All other systems reviewed and negative ED Past Medical Hx - Past Medical History Previous Medical History?: Yes Hx Hypertension: Yes (took antihypertensives this morning) Hx CVA: Yes (x2) Hx Heart Attack/AMI: No Hx Congestive Heart Failure: Yes Hx Diabetes: Yes Hx GERD: Yes Hx Liver Disease: No Hx Sickle Cell Disease: No Hx Arthritis: Yes Hx Tuberculosis: No Hx HIV: No Additional medical history: gastroparesis. neuropathy - Surgical History Past Surgical History?: Yes Hx Cholecystectomy: Yes Hx Breast Surgery: Yes (BREAST REDUCTION) Additional Surgical History: breast reduction. Right great toe amputation. skin graft to both feet. Ectopic - Family History Family history: no significant - Social History Smoking Status: Never Smoker Substance Use Type: None - Medications Home Medications: Home Medications Medication Instructions Recorded Confirmed Last Taken Type Furosemide [Lasix TAB] 80 mg PO BID 01/19/19 04/11/21 04/11/21 History Gabapentin [Neurontin] 400 mg PO TID 01/19/19 04/11/21 04/11/21 History Hydralazine HCl 100 mg PO TID 01/19/19 04/12/21 04/12/21 06:00 History Lispro Insulin [HumaLOG] 15 unit SQ AC 01/19/19 04/11/21 04/11/21 History Folic Acid/Vit B Complex and C 800 mcg PO DAILY 04/01/21 04/11/21 04/11/21 History [Dialyvite 800 Chewable Wafer] ISOSORBIDE MONOnitrate [Imdur ER] 30 mg PO DAILY 04/01/21 04/11/21 04/11/21 History Potassium Citrate ER 40 meq PO DAILY 04/01/21 04/11/21 04/11/21 History Rosuvastatin Calcium [Crestor] 40 mg PO DAILY 04/01/21 04/11/21 04/11/21 History Sitagliptin Phosphate [Januvia] 50 mg PO DAILY 04/01/21 04/11/21 04/11/21 History Tresiba 35 mg PO HS 04/01/21 04/11/21 04/11/21 History amLODIPine 10 mg PO DAILY 04/01/21 04/11/21 04/11/21 History metOLazone [Zaroxolyn] 5 mg PO DAILY 04/01/21 04/11/21 04/11/21 History HYDROcodone/APAP 7.5-325 [[place] 1 each PO Q6HR PRN #40 tablet 04/12/21 Unknown Rx 7.5/325] ED Physical Exam - General Limitations: No Limitations General appearance: alert, in no apparent distress - Head Head exam: Present: atraumatic, normocephalic - Eye Eye exam: Present: normal appearance - ENT ENT exam: Present: mucous membranes moist - Neck Neck exam: Present: normal inspection - Respiratory Respiratory exam: Present: normal lung sounds bilaterally. Absent: respiratory distress - Cardiovascular Cardiovascular Exam: Present: regular rate, normal rhythm. Absent: systolic murmur, diastolic murmur, rubs, gallop - GI/Abdominal GI/Abdominal exam: Present: soft, normal bowel sounds - Extremities Exam Extremities exam: Present: normal inspection - Back Exam Back exam: Present: normal inspection - Neurological Exam Neurological exam: Present: alert, oriented X3 - Psychiatric Psychiatric exam: Present: normal affect, normal mood - Skin Skin exam: Present: warm, dry, intact, normal color. Absent: rash ED Course Vital Signs 02/16/22 14:49 Temperature 98.1 F Pulse Rate 91 H Respiratory 15 Rate Blood Pressure 158/94 O2 Sat by Pulse 99 Oximetry ED Medical Decision Making - Lab Data Result diagrams: 02/16/22 15:48 02/16/22 15:48 - Medical Decision Making Labs 02/16/22 02/16/22 15:48 15:48 WBC 9.8 RBC 3.98 Hgb 11.6 Hct 34.5 MCV 87 MCH 29 MCHC 33 RDW 15.4 H Plt Count 223 Lymph % (Auto) 26.4 [place]hing % (Auto) 5.9 Eos % (Auto) 2.4 Baso % (Auto) 0.8 Lymph # (Auto) 2.6 [place]hing # (Auto) 0.6 Eos # (Auto) 0.2 Baso # (Auto) 0.1 Seg Neutrophils % 64.5 Seg Neutrophils # 6.4 Sodium 138 Potassium 4.1 Chloride 100.3 Carbon Dioxide 23 Anion Gap 19 BUN 32 H Creatinine 3.3 H Estimated GFR 18 BUN/Creatinine Ratio 10 Glucose 173 H Calcium 9.1 Total Bilirubin < 0.20 Direct Bilirubin < 0.2 Indirect Bilirubin 0.0 AST 23 ALT 15 Alkaline Phosphatase 98 Total Protein 6.9 Albumin 3.9 Albumin/Globulin Ratio 1.3 Lipase 54 Vital Signs 02/16/22 14:49 Temperature 98.1 F Pulse Rate 91 H Respiratory 15 Rate Blood Pressure 158/94 O2 Sat by Pulse 99 Oximetry Critical care attestation.: If time is entered above; I have spent that time in minutes in the direct care of this critically ill patient, excluding procedure time. ED Disposition Clinical Impression: Gastroparesis, Type 2 diabetes mellitus, Chronic renal insufficiency Disposition: 01 HOME / SELF CARE / HOMELESS Is pt being admited?: No Does the pt Need Aspirin: No Condition: Stable Instructions: Abdominal Pain (ED), Diabetes Mellitus Type 2 in Adults (ED), Gastroparesis Additional Instructions: Continue your home medicines. Medications as ordered today Motrin or Tylenol for pain Follow-up with PCP as soon as possible. I have given you a referral below. Advance diet as tolerated Referrals: HERRERA HU MD [Primary Care Provider] - 3-5 Days ZULEMA JAMES MD [Staff Physician] - 3-5 Days Time of Disposition: 16:39
[2022-02-16 16:23] LABS: Basophils # (Auto) 0.1 K/mm3 (0.0-0.1); Basophils % (Auto) 0.8 % (0.0-1.8); Eosinophils # (Auto) 0.2 K/mm3 (0.0-0.4); Eosinophils % (Auto) 2.4 % (0.0-4.3); Hematocrit 34.5 % (30.3-42.9); Hemoglobin 11.6 gm/dl (10.1-14.3); Lymphocytes # (Auto) 2.6 K/mm3 (1.2-5.4); Lymphocytes % (Auto) 26.4 % (13.4-35.0); Mean Corpuscular HGB Conc 33 % (30-34); Mean Corpuscular Volume 87 fl (79-97); Monocytes # (Auto) 0.6 K/mm3 (0.0-0.8); Monocytes % (Auto) 5.9 % (0.0-7.3); Platelet Count 223 K/mm3 (140-440); Red Blood Count 3.98 M/mm3 (3.65-5.03); Red Cell Distribution Width 15.4 % (13.2-15.2)
[2022-02-16 16:27] LABS: Alanine Aminotransferase 15 units/L (7-56); Albumin 3.9 g/dL (3.9-5); BUN/Creatinine Ratio 10; Blood Urea Nitrogen 32 mg/dL (7-17); Calcium 9.1 mg/dL (8.4-10.2); Hemolysis Index 10
[2022-02-16 16:28] LABS: Bilirubin,Direct < 0.2 mg/dL (0-0.2)
[2022-02-16] MEDS ORDERED: MORPHINE 2 MG/1 ML INJ IV ONE (20:02)
[2022-02-16 20:15] VITALS: BP 140/90
== END 2022-02-16 20:16 | disposition home or self-care (01) ==
LOC: ED 14:36
DX: E11.43 Type 2 diabetes mellitus with diabetic autonomic (poly)neuropathy (principal); I13.0 Hypertensive heart and chronic kidney disease with heart failure and stage 1 through stage 4 chronic kidney disease, or unspecified chronic kidney disease; E11.22 Type 2 diabetes mellitus with diabetic chronic kidney disease; N18.9 Chronic kidney disease, unspecified; I50.9 Heart failure, unspecified; K21.9 Gastro-esophageal reflux disease without esophagitis; M19.90 Unspecified osteoarthritis, unspecified site; Z90.49 Acquired absence of other specified parts of digestive tract; Z88.8 Allergy status to other drugs, medicaments and biological substances; Z88.5 Allergy status to narcotic agent; Z79.4 Long term (current) use of insulin; Z79.899 Other long term (current) drug therapy
CPT/HCPCS: 36415; 80048; 80076; 83690; 85025; 96361; 96374; 96375; 99283; J1885; J2270; J2405; J7030; Q0162